=== PATIENT | female | born 1955 | race Caucasian/White ===

== ENCOUNTER 2021-03-19 10:19 | Outpatient (CLI) | payer MEDICARE, MEDICAID, SELFPAY ==
[2021-03-19 11:50] LABS: Anion Gap 10 mmol/L (8-16); Blood Urea Nitrogen 28 mg/dL (7-17); Calcium 9.3 mg/dL (8.4-10.2); Carbon Dioxide 26 mmol/L (22-30); Chloride 101 mmol/L (98-107); Estimated Glomerular Filt Rate 45; Glucose 134 mg/dL (65-110); Potassium 5.1 mmol/L (3.4-5.0); Sodium 137 mmol/L (137-145)
== END 2021-03-19 10:20 | disposition home or self-care (01) ==
LOC: ANHSURGERY 10:28
PROVIDERS: Anesthesiology; PCP Nurse Practitioner Adult Health; Visit Provider Plastic Surgery
DX: E11.9 Type 2 diabetes mellitus without complications (principal); Z01.818 Encounter for other preprocedural examination
CPT/HCPCS: 36415; 80048

== ENCOUNTER 2021-03-25 00:46 | Day surgery (SDC) | payer MEDICARE, MEDICAID, SELFPAY ==
[2021-03-19 09:17] VITALS: BMI 37.1
--- NOTE | 2021-03-19 09:48 | PC.NURSE ---
Report to the Outpatient Waiting Room, entrance under the green pavilion located off [facility], at time _1000_ on date _03/25/21__. OR Time: _1200__. - You will be asked a series of questions to screen for COVID 19 for your protection. - A mask is required within the hospital. - No visitors are allowed at this time. Preoperative COVID Testing Requirements: NONE Patients may have clear liquids (water, carbonated beverages, clear teas, apple juice) until 3 hours prior to surgery (0900 AM) with a maximum of 20 ounces. - No food from midnight until time of surgery Take the following medications with a SIP of water the morning of surgery: _LEVOTHYROXINE, METOPROLOL,_ Medications to discontinue per ANESTHESIA _ALL VITAMINS AND SUPPLEMENTS - 3 DAYS PRIOR TO SURGERY__ Date to take last dose 03/21/21 Please no make-up, nail libyan, hairspray, perfume, deodorant, or body powder the day of surgery. No jewelry (including any body piercings) or valuables the day of surgery, leave them at home. Please take a shower or bath the night before, or the morning of, surgery with an antibacterial soap. Wear comfortable, loose fitting clothing. Children are encouraged to wear pajamas. - Jewelry must be removed prior to entering the operating room. Rings and piercings that are not removed may be cut off. - The hospital will not accept responsibility for valuables. - Please leave all valuables, including medications, at home the day of surgery. If you are going home after surgery, a licensed commercial driver's license driver must drive you home. - NO public transportation without another adult. - We recommend that an adult stay with you for 24 hours following discharge. - We also recommend that you do not drive, make important decision, drink alcoholic beverages, or take any drugs that were not prescribed by your health care provider for at least 24 hours after your discharge time. Follow any additional instructions given to you from your surgeon. Telephone instructions given to ___PT and asked if any additional questions and then verbalized understanding. Patient advised to call surgeon office or pre surgery nurse liaisonODETTE [phone] if any additional questions.
[2021-03-25] VITALS (8 sets, daily range): BP systolic 86–128; BP diastolic 43–66; PULSE 60–79; RESP 12–20; TEMP 36.1; O2SAT 96–100
--- NOTE | ~2021-03-25 | XR_ITS ---
EXAMINATION: XR surgery orthopedic DATE: 03/25/2021 15:38 INDICATION: Left trapezium resection arthroplasty TECHNIQUE: 2 fluoroscopic images of the left carpus were obtained during procedure performed by Dr. Kellie Madison. Radiologist was not present for the imaging or procedure. The amount of fluoroscopy time used d uring this procedure was 0.1 minutes. COMPARISON: None. FINDINGS: Resection of the trapezium for first carpal metacarpal suspension arthroplasty. Expected small amount of gas in the soft tissues of the operative bed. Lucent tracks are present at the base of the first and second metacarpals. No fractures identified. IMPRESSION: 1. Expected appearance during first carpal metacarpal suspension arthroplasty with resection of the t rapezium. Reviewed, dictated and finalized at location A. HOIST ENGINEER IMPRESSION: 1. Expected appearance during first carpal metacarpal suspension arthroplasty w ith resection of the trapezium.
--- NOTE | 2021-03-25 07:32 | WPDHPUPDATE1 ---
History and Physical Update Update Date/Time: 03/25/21 07:32 History and Physical has been reviewed, including an updated exam of the patient. There are NO changes in the patient's condition. Risks, benefits, and alternatives have been discussed and questions answered. Patient agrees to proceed with procedure.
[2021-03-25] MEDS: LACTATED RINGERS 1,000 ML 30 ML IV CONT ×2 (11:05→16:24)
[2021-03-25 11:13] LABS: Glucose Point of Care 137 mg/dl (65-105)
[2021-03-25] MEDS: ACETAMINOPHEN 500 MG TABLET 1000 MG PO (11:18)
--- NOTE | 2021-03-25 12:10 | SUR.PREOP ---
1205-PT AND AWARE SURGEON DELAYS SELF ~1-1 1/2 HRS.
--- NOTE | 2021-03-25 12:16 | SUR.PREOP ---
1115-PT AWARE SURGEON DELAYS SELF 1- 1 1/4HRS.
--- NOTE | 2021-03-25 13:28 | WPDANESEPPF ---
Anes - Initial Pre Proc Eval Procedure: Operation Date: 03/25/21 12:00 Proposed Procedures p Left Trapezium Resection Arthroplasty with Arthrex Internal Brace - Chiki Hagen MD Date/Time: 03/25/21 13:28 Surgeon: Chiki Hagen MD Pre Op Diagnosis: Lt Basal Joint Osteoarthritis Patient Data Age: 65 Gender: F Height: 1.52 m Weight: 87.8 kg Last Vital Signs Temp 36.1 C L 03/25/21 10:19 Pulse 60 03/25/21 10:19 Resp 20 03/25/21 10:19 BP 115/49 L 03/25/21 10:19 Pulse Ox 98 03/25/21 10:19 Allergies Allergy/AdvReac Type Severity Reaction Status Date / Time clavulanic acid Allergy Unknown RESP Verified 03/18/21 09:38 DISTRESS, SWELLING, N/V meloxicam Allergy Unknown RESP Verified 03/18/21 09:38 DISTRESS, NAUSEA/VOMITING, SWELLING Home Medications Medication Instructions Recorded Confirmed Type allopurinol 100 mg PO DAILY 03/18/21 03/25/21 History amitriptyline 10 mg PO HS 03/18/21 03/25/21 History apixaban [Eliquis] 5 mg PO BID 03/18/21 03/25/21 History cyanocobalamin (vitamin B-12) 1,000 mcg SUBCUT WEEKLY 03/18/21 03/25/21 History dapagliflozin [Farxiga] 10 mg PO QAM 03/18/21 03/25/21 History denosumab [Prolia] 60 mg SUBCUT [id number] 03/18/21 03/25/21 History dicyclomine 10 mg PO QID 03/18/21 03/25/21 History fenofibrate 54 mg PO DAILY 03/18/21 03/25/21 History fluconazole 150 mg PO WEEKLY PRN 03/18/21 03/18/21 History gabapentin 600 mg PO HS 03/18/21 03/25/21 History glimepiride 2 mg PO QID PRN 03/18/21 03/25/21 History glucagon [Gvoke HypoPen 1-Pack] 1 mg SUBCUT DAILY PRN 03/18/21 03/18/21 History ketoconazole 1 applic TOPICAL BID PRN 03/18/21 03/18/21 History levothyroxine 125 mcg PO QAM 03/18/21 03/25/21 History lisinopril 10 mg PO QAM 03/18/21 03/25/21 History metformin 1,000 mg PO BID 03/18/21 03/25/21 History metoprolol succinate 25 mg PO BID 03/18/21 03/25/21 History omeprazole 20 mg PO QAM 03/18/21 03/25/21 History oxybutynin chloride 5 mg PO BID 03/18/21 03/25/21 History pravastatin 40 mg PO HS 03/18/21 03/25/21 History tramadol 50 mg PO BID 03/18/21 03/25/21 History Laboratory Tests 03/25/21 11:09 POC Capillary Glucose 137 mg/dl H mg/dl (65-105) Patient hx anesthesia problems: none Family hx anesthesia problems: none Results Review: All pre-operative results and documents have been reviewed as part of the pre-operative evaluation. [facility] Past Medical History Medical History (Updated 03/25/21 @ 13:35 by Osito Rivera MD) CAD (coronary artery disease) COPD (chronic obstructive pulmonary disease) Diabetes HTN (hypertension) Hx of myocardial infarction Hyperlipidemia Hypothyroidism Obesity JULY (obstructive sleep apnea) Osteoarthritis Surgical History Surgical History (Updated 03/25/21 @ 13:35 by Osito Rivera MD) AICD (automatic cardioverter/defibrillator) present Social History Social History Smoking packs per day: 0.5 Smoking cigarettes per day: 10.0 Years smoked: 56 Smoking pack-years: 28.00 Smoking status: Current every day smoker Tobacco type: cigarettes Second hand tobacco smoke exposure: Yes Alcohol intake: never Substance use: never Substance use type: does not use Living arrangements: alone Spiritual care concerns: No Anes - Eval Final PreProcedure Day of Procedure 03/25/21 13:28 Patient weight: obese Heart: regular rate and rhythm Lungs: clear to auscultation and normal air movement Airway: Mallampati scale class II Neurological: alert and oriented Last oral intake: >/= 8 hours ASA classification: III Emergent: no Anesthetic plan: proceed Anesthesia type and monitoring: general LMA Results Review: All pre-operative results and documents have been reviewed as part of the pre-operative evaluation. Informed Consent: The patient's anesthetic plan and its attendant risks and benefits were discussed with the patient/family/POA. Questions were solicited and answers p
[2021-03-25] MEDS: CLINDAMYCIN 900 MG/D5W 50 ML 900 MG/50 ML PIGGYBACK 50 MG IVPB (14:12)
--- NOTE | 2021-03-25 14:13 | SUR.PREOP ---
1310-UPDATED PT REGARDING DELAY-ADDITIONAL 1+ HOUR, OPTION GIVEN TO RESCHEDULE FOR ANOTHER DAY, PREFERS TO HAVE PROCEDURE TODAY.
[2021-03-25] MEDS: BUPIVACAINE HCL 0.5% PF 30 ML VIAL INFILTRATE (14:54)
[2021-03-25] MEDS: LIDO 1%/EPINEPHRINE/PF 1:200,000 30 ML VIAL XX (14:54)
[2021-03-25] MEDS: fentaNYL CITRATE INJ (*CRX) 100 MCG/2 ML VIAL 25 MCG IV PUSH ×2 (16:18→16:33)
[2021-03-25 16:46] LABS: Glucose Point of Care 91 mg/dl (65-105)
--- NOTE | 2021-03-25 18:02 | W.PM.PROC2 ---
Procedure Note - Detailed Date of Procedure 03/25/21 Pre-op Diagnosis Lt Basal Joint Osteoarthritis Post-op Diagnosis same Procedure Performed Left trapezium resection arthroplasty with Arthrex InternalBrace Surgeon Chiki Hagen MD Hvac Service Manager Rachael Description of Procedure The site of the left basal joint was marked in the holding area. The patient was taken to the operating room where she was placed supine on the operating table. A time-out was held and confirmed. She was given general endotracheal anesthesia. Extremity was prepped and draped in usual fashion. Marking was made for the incision and this area was infiltrated with 1% lidocaine with epinephrine. The extremity was exsanguinated with an Shiva wrap and the tourniquet inflated to 250 mmHg. The incision was made as marked and dissection was carried carefully through the subcutaneous tissue. We identified a cutaneous nerve and a traversing vein and were able to retract them the vessel loop and preserve them. The interspace between the EPB and the AP L was incised exposing the carpometacarpal joint. The trapezium was dissected with sharp and blunt dissection and eventually a portion of it was split with a osteotome the structure was removed with a rongeur. Images revealed complete removal of the trapezium. The anchor lock with SutureTape was placed in the base of the 2nd metacarpal. The fenestration in the 2nd metacarpal was actually performed with digital penetration of the 2nd metacarpal base with a guidewire. That whole proved to be large enough that the anchor was placed directly into it after drilling it a little deeper. The lock stated position. The 2nd anchor lock was placed at the radial base of the 1st metacarpal with no trouble. The tape was cut. The site image once again with the thumb in extension and retraction. The APB had been inadvertently partially transected in the process of resection. It still function and passively. A 3-0 Vicryl suture was placed as a evxyfl-ko-xojha reinforcement stitch. No significant capsular repair was done. The skin was closed with a running inter dermal 3-0 Monocryl. A soft bandage and thumb spica splint was applied and the patient was discharged from the operating room stable condition. The patient is being discharged home with instructions in wound care and follow-up. She has a prescription for hydrocodone 5/325 number 10 Estimated Blood Loss 3 Tourniquet Time 55 Drains No Packing No Pathology none sent Complications No immediate complications Condition stable Disposition PACU
== END 2021-03-25 18:05 | disposition home or self-care (01) ==
PROVIDERS: PCP Nurse Practitioner Adult Health; Visit Provider Plastic Surgery
PROC: (CPT 25447; principal; 2021-03-25 12:00)
DX: M18.12 Unilateral primary osteoarthritis of first carpometacarpal joint, left hand (principal); E03.9 Hypothyroidism, unspecified; Z79.01 Long term (current) use of anticoagulants; Z79.84 Long term (current) use of oral hypoglycemic drugs; I25.10 Atherosclerotic heart disease of native coronary artery without angina pectoris; J44.9 Chronic obstructive pulmonary disease, unspecified; I10 Essential (primary) hypertension; I25.2 Old myocardial infarction; E78.5 Hyperlipidemia, unspecified; G47.33 Obstructive sleep apnea (adult) (pediatric); M19.90 Unspecified osteoarthritis, unspecified site; F17.210 Nicotine dependence, cigarettes, uncomplicated; E66.9 Obesity, unspecified; Z68.37 Body mass index [BMI] 37.0-37.9, adult; Z95.810 Presence of automatic (implantable) cardiac defibrillator
CPT/HCPCS: 25447; 82948; A9270; C1713; J1100; J2370; J2405; J2704; J3010; J7120

== ENCOUNTER 2021-09-23 07:48 | Outpatient (CLI) | payer MEDICARE, MEDICAID, SELFPAY ==
--- NOTE | 2021-09-23 14:08 | WPDPFTINT ---
PFT Procedure Performed PFT Procedure Performed Spirometry with Pre/Post Bronchodilator Plethysmography (Lung Vol) Diffusing Cap (DLCO) Flow Vol Loop PFT Interpretation Lung volumes were measured with the body plethysmography method. Lung volumes are unremarkable. Spirometry showed normal expiratory flow rates and a normal FEV1 to FVC ratio of 81%. Following administration of a bronchodilator there was no significant increase in expiratory flow rates. Lung diffusion capacity is within the normal range. The flow volume loop is unremarkable. Impression: Spirometry, lung volumes, and lung diffusion capacity all within the normal range.
--- NOTE | 2021-09-23 14:10 | WPDSIXMINUTE ---
Six Minute Walk Procedure Procedure Performed Pulmonary Stress Test (6 min walk) Six Minute Walk Six Minute Walk: This 6 minute walk test was carried out with the patient breathing ambient air. The pre-walk oxyhemoglobin saturation was 98%. Patient walked over 304 m with no pauses during testing. During the walk the oxyhemoglobin saturation remained 98% to 99%. Impression: No evidence of oxyhemoglobin desaturation on this testing.
== END 2021-09-23 07:49 | disposition home or self-care (01) ==
LOC: ANHPFT 07:50
PROVIDERS: PCP Nurse Practitioner Adult Health; Visit Provider Nurse Practitioner Family
DX: R06.09 Other forms of dyspnea (principal); J44.9 Chronic obstructive pulmonary disease, unspecified
CPT/HCPCS: 94060; 94618; 94726; 94729

== ENCOUNTER 2023-03-19 12:50 | Inpatient (IN) | payer MEDICARE, MEDICAID, SELFPAY ==
[2023-03-19] VITALS (7 sets, daily range): BP systolic 114–159; BP diastolic 41–79; PULSE 81–96; RESP 18–26; TEMP 35.7–36.6; O2SAT 95–100; BMI 33.5
--- NOTE | ~2023-03-19 | CT_ITS ---
CT of the Abdomen and Pelvis: Indication: Abdominal pain Technique: 2.5 mm axial scans were obtained through the abdomen and pelvis following intravenous adm inistration of 100 cc of Omnipaque 350. Dose reduction technique was used on this scan by utilizing a utomated exposure control and iterative reconstruction technique. The dose-length product (DLP) was 8 99.85 mGy-cm. Findings: Scans through the lung bases are unremarkable. Nodular contour of the liver is compatible cirrhosis. Cholecystectomy clips are present. The spleen, pancreas, adrenals and kidneys are within normal limits. There are atherosclerotic calcifications of the aorta. . There is mild nonspecific haziness in the retroperitoneum. No bowel obstruction or bowel wall thickening. There is no evidence to suggest acute appendicitis. Images through the pelvis were performed. Urinary bladder unremarkable. No adnexal mass seen. No asci ana m. Mild L1 compression fracture present. Impression: Nonspecific mild, hazy infiltrative change in the retroperitoneum. Consider mild pancreatitis, possib ly recently passed stone. Cirrhotic liver. L1 compression fracture. Reviewed, dictated and finalized at location M. ARY CUSTOMER SERVICE CLERK Impression: Nonspecific mild, hazy infiltrative change in the retroperitoneum. Consider mil d pancreatitis, possibly recently passed stone. Cirrhotic liver. L1 compression fracture.
[2023-03-19 13:21] LABS: Basophils Percent Auto 0.3 % (0.2-1.2); Eosinophils Absolute Auto 0.1 K/mm3 (0-0.3); Eosinophils Percent Auto 0.9 % (0-4.4); Hematocrit 40.4 % (37.0-47.0); Hemoglobin 13.3 g/dL (12.0-15.0); Immature Granulocyte Absolute 0.03 K/mm3 (0.00-0.031); Immature Granulocyte Percent A 0.5 % (0-0.5); Lymphocytes Absolute Auto 0.88 K/mm3 (0.9-3.2); Lymphocytes Percent Auto 13.8 % (18.3-44.2); Mean Corpuscular HGB Conc 32.9 g/dl (32-36); Mean Corpuscular Hemoglobin 30.8 pg (26-34); Mean Corpuscular Volume 93.5 fl (80-100); Mean Platelet Volume 10.2 fl (7.4-10.4); Monocytes Absolute Auto 0.4 K/mm3 (0.1-0.6); Neutrophils Percent Auto 78.5 % (45.5-73.1); Platelet Count Result 157 k/mm3 (150-375); Red Blood Count 4.32 M/mm3 (4.2-5.4); Red Cell Distribution Width 14.3 % (11.5-14.5); White Blood Count 6.4 K/mm3 (4.5-10.0)
[2023-03-19 13:32] LABS: Alanine Aminotransferase 20 U/L (6-35); Albumin Level 4.7 g/dL (3.5-5.1); Alkaline Phosphatase 145 U/L (38-126); Anion Gap 10 mmol/L (8-16); Aspartate Amino Transferase 38 U/L (14-36); Bilirubin,Total 0.9 mg/dL (0.2-1.3); Blood Urea Nitrogen 18 mg/dL (7-17); Calcium 10.3 mg/dL (8.4-10.2); Carbon Dioxide 24 mmol/L (22-30); Chloride 103 mmol/L (98-107); Estimated CRCL calculation 41 ml/min; Estimated Glomerular Filt Rate 49; Glucose 175 mg/dL (65-110); Lipase 64 U/L (23-300); Potassium 4.4 mmol/L (3.4-5.0); Sodium 137 mmol/L (137-145)
--- NOTE | 2023-03-19 14:05 | ED.ABDPAIN ---
HPI - Abdominal Pain General Chief Complaint: Abdominal Pain <Tiana Cross PA-C - Last Filed: 03/19/23 17:49> Stated Complaint: abd pain <Tiana Cross PA-C - Last Filed: 03/19/23 17:49> Time Seen by Provider: 03/19/23 13:47 <Tiana Cross PA-C - Last Filed: 03/19/23 17:49> Source: patient <CASSANDRA Lopez Last Filed: 03/19/23 17:49> Mode of arrival: wheelchair <CASSANDRA Lopez Last Filed: 03/19/23 17:49> Limitations: no limitations <CASSANDRA Lopez Last Filed: 03/19/23 17:49> History of Present Illness HPI narrative: This is a 67 year old female that presents to the ER for left sided abdominal pain. Reports associated, nausea, vomiting and left flank/back pain. Reports a fall in the end of February. She has had low back pain since. She did see her primary provider for this and had some imaging that did not show any fractures. Denies fevers, diarrhea, dysuria or hematuria. <CASSANDRA Lopez Last Filed: 03/19/23 17:49> Related Data Home Medications: Home Medications Medication Instructions Recorded Confirmed allopurinol 100 mg tablet 100 mg PO DAILY 03/18/21 01/17/23 amitriptyline 10 mg tablet 10 mg PO HS 03/18/21 01/17/23 apixaban 5 mg tablet (Eliquis) 5 mg PO BID 03/18/21 01/17/23 cyanocobalamin (vitamin B-12) 1,000 mcg subcut WEEKLY 03/18/21 01/17/23 1,000 mcg/mL injection solution dapagliflozin propanediol 10 mg 10 mg PO QAM 03/18/21 01/17/23 tablet (Farxiga) denosumab 60 mg/mL subcutaneous 60 mg subcut [id number] 03/18/21 01/17/23 syringe (Prolia) dicyclomine 10 mg capsule 10 mg PO QID 03/18/21 01/17/23 gabapentin 300 mg capsule 600 mg PO HS 03/18/21 01/17/23 ketoconazole 2 % topical cream 1 applic topical BID PRN Rash 03/18/21 01/17/23 omeprazole 20 mg capsule,delayed 20 mg PO QAM 03/18/21 01/17/23 release oxybutynin chloride 5 mg tablet 5 mg PO BID 03/18/21 01/17/23 tramadol 50 mg tablet 50 mg PO BID 03/18/21 01/17/23 calcitriol 0.25 mcg capsule 0.25 mcg PO DAILY 11/23/22 01/17/23 cholecalciferol (vitamin D3) 1,250 1,250 mcg PO WEEKLY 11/23/22 01/17/23 mcg (50,000 unit) capsule diltiazem HCl 90 mg 90 mg PO BID 11/23/22 01/17/23 capsule,extended release 12 hr dofetilide 250 mcg capsule 250 mcg PO Q12H 11/23/22 01/17/23 etanercept 50 mg/mL (1 mL) 50 mg subcut WEEKLY 11/23/22 01/17/23 subcutaneous syringe (Enbrel) furosemide 40 mg tablet 40 mg PO QAM 11/23/22 01/17/23 linaclotide 145 mcg capsule 145 mcg PO DAILY 11/23/22 01/17/23 (Linzess) losartan 50 mg tablet 50 mg PO DAILY 11/23/22 01/17/23 magnesium oxide 500 mg PO DAILY 11/23/22 01/17/23 midodrine 5 mg tablet 5 mg PO .COMPLEX 11/23/22 01/17/23 psyllium seed (sugar) oral powder 1 tbsp PO TID 11/23/22 01/17/23 (Metamucil (sugar) oral powder) insulin syringe-needle U-100 0.5 01/17/23 01/17/23 mL 31 gauge x 5/16 (Advocate Syringes) <Tiana Cross PA-C - Last Filed: 03/19/23 17:49> Allergies/Adverse Reactions: Allergies Allergy/AdvReac Type Severity Reaction Status Date / Time sulfasalazine Allergy Mild Wheezing Verified 03/19/23 16:06 clavulanic acid Allergy Unknown RESP Verified 03/19/23 14:08 DISTRESS, SWELLING, N/V meloxicam Allergy Unknown RESP Verified 03/19/23 14:08 DISTRESS, NAUSEA/VOMITING, SWELLING <Tiana Cross PA-C - Last Filed: 03/19/23 17:49> Review of Systems Review of Systems: CONSTITUTIONAL: Denies fever GASTROINTESTINAL: Reports abdominal pain, nausea, vomiting. Denies diarrhea. GENITOURINARY: Denies dysuria or hematuria. MUSCULOSKELETAL: Reports back pain, joint pain, and myalgia. <Tiana Cross PA-C - Last Filed: 03/19/23 17:49> All systems reviewed & are unremarkable except as noted in HPI and below <Tiana Cross PA-C - Last Filed: 03/19/23 17:49> [facility] Past Medical History Medical History: Medical History (Reviewed 01/17/23 @ 14:21 by Reema Mccall C
[2023-03-19] MEDS: SODIUM CHLORIDE 0.9% IV 500 ML 999 ML IV CONT ×2 (14:17→15:19)
[2023-03-19] MEDS: ONDANSETRON INJ 4 MG/2 ML VIAL IV PUSH (14:17)
[2023-03-19] MEDS: MORPHINE SULFATE (*CRX) 4 MG/ML INJ IV PUSH (14:17)
[2023-03-19 14:37] LABS: Appearance Urine Clear (Clear); Bilirubin Urine Negative (Negative); Blood Urine Negative (Negative); Color Urine Yellow (Yellow); Glucose Urine UA 3+ mg/dL (Negative); Ketones Urine 1+ mg/dL (Negative); Leukocyte Esterase Ur Negative LEU/UL (Negative); Nitrate Urine Negative (Negative); Protein Urine Negative (Negative)
[2023-03-19 14:46] LABS: Add Urine Microscopic? NO
[2023-03-19] MEDS: HYDROcodone/acetaminophen (*CRX) 5-325 MG TABLET 1 TAB PO ×2 (16:10→20:58)
[2023-03-19] MEDS: diazePAM INJ (*CRX) 10 MG/2 ML SYRINGE 5 MG IV PUSH (16:10)
[2023-03-19 17:18] LABS: Glucose Point of Care 96 mg/dl (65-105)
--- NOTE | 2023-03-19 17:55 | PC.NURSE ---
This patient, Sarah Starr, was admitted to [facility] Surg Room 300-01. Patient/family oriented to hospital policies and general routines including ID bracelet, bed and alarms, visiting hours, pain management, procedures, bathroom and other care routines, personal items, smoking policy, room service/diet, and visiting hours. Information on how to activate the Rapid Response Team has been discussed. Patient/Family are encouraged to report perceived risks to care and to ask questions if they do not understand what they are told or what they should do.
[2023-03-19 21:06] LABS: Glucose Point of Care 98 mg/dl (65-105)
--- NOTE | 2023-03-19 21:44 | PM.IMHP ---
H&P: HPI History of Present Illness Date/Time: 03/19/23 18:30 Chief Complaint: Abdominal and back pain. Narrative: This is a 67-year-old female with multiple medical problems including cirrhosis, gastroesophageal reflux disease, Nelson esophagus, coronary artery disease, paroxysmal atrial fibrillation on chronic anticoagulation, non alcoholic steatohepatitis, hypertension, hyperlipidemia, type 2 diabetes mellitus, hypothyroidism, chronic kidney disease, and arthritis who presented to the emergency department via private vehicle from home for evaluation of abdominal and back pain. The patient provides the following history. She had a fall about 1 month ago where she landed on her left side and buttock. She had imaging done at an outside facility and was told that everything looked okay. She had been doing okay until about the last week when she developed pain throughout the left side of the abdomen and flank wrapping around through to the back. She has a hard time describing the pain but a majority of the time it is sharp and stabbing in nature. She has been managing okay at home but the last couple of days the pain has been severe. It is worse with eating, movement, palpation. She has not given any significant alleviating factors. She endorses chills but has not had a fever to her knowledge. Appetitie has been poor with ongoing nausea and she had several episodes of ?brown? emesis today. She denies sinus congestion, sore throat, neck ache, chest pain, pleuritic pain, palpitations, sensations of racing heart, diarrhea, dysuria, hematuria, melena, hematochezia, lower extremity weakness, paresthesias, saddle anesthesia, urine retention, and bowel incontinence. In the ED: She was afebrile on arrival with stable blood pressures. CBC was really unremarkable. Electrolytes were normal though calcium was minimally elevated. BUN and creatinine were 181.10 respectively which is close to her baseline. AST was 38, ALT 145, but her bilirubin and ALT were normal. Lipase was 64. Urine had a high specific gravity with 3+ glucose and 1+ ketones. CT of the abdomen and pelvis showed a cirrhotic liver, mild L1 compression fracture, and nonspecific mild, hazy infiltrative changes in the retroperitoneum which could be mild pancreatitis or possibly senior outside sales representative of a recently passed stone. She received IV fluids, morphine, diazepam, and ondansetron without much improvement. She was not able to ambulate unassisted and she is being admitted in this setting for further monitoring and workup. Review of Systems Review of Systems: Twelve systems were reviewed and are negative except for as per HPI. [facility] Past Medical History Medical History (Updated 03/19/23 @ 22:14 by Florence Oconnor PA-C) Arthritis Nelson esophagus Chronic anticoagulation Chronic obstructive pulmonary disease Coronary artery disease Gastroesophageal reflux disease History of cardiac pacemaker Hyperlipidemia Hypertension Hypothyroidism Nonalcoholic steatohepatitis (LINK) Obesity Obstructive sleep apnea on CPAP Osteoarthritis Paroxysmal atrial fibrillation Type 2 diabetes mellitus Surgical History Surgical History (Updated 03/19/23 @ 22:04 by Florence Oconnor PA-C) History of arthroscopy of left knee History of cardiac defibrillator placement History of right hip replacement Family History Family History Father Heart disease Diabetes mellitus Pancreatitis Mother Heart disease Pulmonary fibrosis Sibling Heart disease Kidney disease Social History Social History (Updated 03/19/23 @ 22:04 by Florence Oconnor PA-C) Social History: Surrogate medical decision maker: Erlinda Paula, sister. Code status: Smoking packs per day: 0.5 Smoking cigarettes per day: 10.0 Years smoked: 56 Smoking pack-years: 28.00 Smoking status: Current every day smoker Tobacco type: cigarettes Second hand tobacco smoke
[2023-03-19] MEDS: SODIUM CHLORIDE 0.9% IV 1,000 ML 100 ML IV CONT (23:36)
[2023-03-19] MEDS: GABAPENTIN 300 MG CAPSULE PO (23:36)
[2023-03-19] MEDS: allopurinoL 100 MG TABLET PO (23:36)
[2023-03-19] MEDS: MORPHINE SULFATE (*CRX) 2 MG/ML INJ IV PUSH (23:45)
[2023-03-20] MEDS: HYDROcodone/acetaminophen (*CRX) 5-325 MG TABLET 1 TAB PO ×4 (01:12→18:32)
[2023-03-20] MEDS: LEVOTHYROXINE SODIUM 100 MCG TABLET PO (01:12)
[2023-03-20 03:53] LABS: Glucose Point of Care 77 mg/dl (65-105)
[2023-03-20] MEDS: MORPHINE SULFATE (*CRX) 2 MG/ML INJ IV PUSH ×4 (05:18→21:21)
[2023-03-20 06:00] VITALS: BP 133/106; PULSE 80; RESP 19; TEMP 36.5; O2SAT 92
[2023-03-20 06:52] LABS: Hematocrit 35.4 % (37.0-47.0); Hemoglobin 11.4 g/dL (12.0-15.0); Mean Corpuscular HGB Conc 32.2 g/dl (32-36); Mean Corpuscular Volume 93.2 fl (80-100); Mean Platelet Volume 10.4 fl (7.4-10.4); Platelet Count Result 126 k/mm3 (150-375); Red Cell Distribution Width 14.2 % (11.5-14.5); White Blood Count 5.2 K/mm3 (4.5-10.0)
[2023-03-20 07:08] LABS: Alanine Aminotransferase 16 U/L (6-35); Albumin Level 3.8 g/dL (3.5-5.1); Alkaline Phosphatase 114 U/L (38-126); Anion Gap 9 mmol/L (8-16); Aspartate Amino Transferase 33 U/L (14-36); Bilirubin,Total 0.7 mg/dL (0.2-1.3); Blood Urea Nitrogen 11 mg/dL (7-17); Calcium 9.1 mg/dL (8.4-10.2); Carbon Dioxide 23 mmol/L (22-30); Chloride 106 mmol/L (98-107); Estimated CRCL calculation 44 ml/min; Estimated Glomerular Filt Rate 55; Glucose 93 mg/dL (65-110); Lipase 47 U/L (23-300); Magnesium 1.6 mg/dL (1.6-2.3); Potassium 3.4 mmol/L (3.4-5.0); Sodium 138 mmol/L (137-145)
[2023-03-20 07:31] LABS: Glucose Point of Care 105 mg/dl (65-105)
[2023-03-20 07:58] LABS: Thyroid Stimulating Hormone Reflex 0.276 uIU/mL (0.465-4.68)
[2023-03-20] MEDS: dilTIAZem HCL CD 180 MG CAP.24HR PO (08:56)
[2023-03-20] MEDS: DICYCLOMINE HCL 10 MG CAPSULE PO ×2 (08:56→17:18)
[2023-03-20] MEDS: FENOFIBRATE,MICRONIZED 48 MG TABLET PO (08:56)
[2023-03-20] MEDS: oxyBUTYnin CHLORIDE 5 MG TABLET PO ×2 (08:57→20:13)
[2023-03-20] MEDS: LOSARTAN POTASSIUM 50 MG TABLET PO (08:57)
[2023-03-20] MEDS: MIDODRINE HCL 2.5 MG TABLET 5 MG PO ×2 (08:57→17:18)
[2023-03-20] MEDS: APIXABAN 5 MG TABLET PO ×2 (08:57→20:13)
[2023-03-20] MEDS: PSYLLIUM POWDER PACKET 1 PACKET PO ×3 (08:57→17:18)
[2023-03-20] MEDS: PANTOPRAZOLE 40 MG TABLET PO (08:57)
[2023-03-20 09:58] LABS: Free T4 Free Thyroxine Reflex 1.96 ng/dL (0.78-2.19)
[2023-03-20] MEDS: LIOTHYRONINE SODIUM 5 MCG TABLET PO ×2 (10:07→20:13)
[2023-03-20 11:14] LABS: Glucose Point of Care 141 mg/dl (65-105)
[2023-03-20 12:06] LABS: Total Triiodothyronine (T3) 1.32 NG/ML (0.97-1.69)
--- NOTE | 2023-03-20 13:46 | PM.IMPN ---
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 Status: Acute (2) Paroxysmal atrial fibrillation: Code(s): I48.0 - Paroxysmal atrial fibrillation Status: Acute (3) Nonalcoholic steatohepatitis (LINK): Code(s): K75.81 - Nonalcoholic steatohepatitis (LINK) Status: Acute (4) Compression fracture of L1 vertebra: Qualifiers: Encounter type: initial encounter Qualified Code(s): S32.010A - Wedge compression fracture of first lumbar vertebra, initial encounter for closed fracture Code(s): S32.010A - Wedge compression fracture of first lumbar vertebra, initial encounter for closed fracture Status: Acute Time Spent With Patient Time: This is a 67-year-old female who comes from home with past medical history non alcoholic steatohepatitis, cirrhosis, GERD, Nelson's esophagus, coronary artery disease, paroxysmal atrial fibrillation on chronic anticoagulation, hypertension, hyperlipidemia, type 2 diabetes mellitus [id number]-[id number], hypothyroidism, chronic kidney disease, arthritis. The patient fell approximately 1 month prior to admission and landed on her left side and buttock. Imaging at an outside facility and was told everything was okay. She was doing well until about a week prior to this admission when she presented [facility] with worsening left flank, abdominal pain and lower back pain. Sharp in nature. Worse with eating and movement and palpation. Associated with some nausea and brown emesis. On admission the patient's AST was 38, alkaline phosphatase 145 and have now resolved. Lipase and total bilirubin were normal however. CT abdomen and pelvis with contrast demonstrates nonspecific mild hazy infiltrates to the retroperitoneum which could demonstrate mild pancreatitis or a recently passed stone. It is very possible she had a recent event which is now resolving. Continue Protonix. If she worsens a GI consultation would be appropriate. There may be a concomitant issue. She has point tenderness to the L-spine and fell a month ago. She is unsure if the stomach pain or the back pain is worse but both are sharp in nature. She has relief with Pierce. Continue p.r.n. for severe pain as well. With this apparently new L1 compression fracture a neurosurgery consult has been placed for further assistance. FEN: Saline lock IV. Clear liquid diet, advanced as tolerated. GI prophylaxis: Protonix p.o. q.day. DVT prophylaxis: On Eliquis for atrial fibrillation Lines: Peripheral IV Code Status: Full code Dispo: Bed rest for now pending neurosurgical consultation, than PTOT therapy. Stable. Subjective Date/time seen: 03/20/23 13:46 Interval history: No acute overnight events. Patient has recently received Pierce and reports the pain is 4/10. She again reports that is at the stomach area and radiates in a sharp manner to the back. And worse at the lower back Review of Systems Review of Systems: All systems reviewed & are unremarkable except as noted in HPI and below (Subjective) Exam Narrative: Point tenderness to the L-spine. BILLY test positive bilaterally worse on the right. Const: General: comfortable and no acute distress Other: A&O x3 Eyes: Pupils: Equal, round and reactive pupils present Neck: Neck: supple Resp: Effort & Inspection: normal respiratory effort Auscultation: clear to auscultation bilaterally Cardio: Rate: regular rate Rhythm: regular rhythm GI: GI Palp: Yes Soft to palpation and Yes Tenderness to palpation present (GI) (Mild tenderness to palpation diffusely) : Bimanual exam- vagina & uterus: bladder normal to palpation Neuro: Speech: normal speech Motor exam (neuro): 5/5 motor strength present throughout Sensory Exam: normal sensation Extrem: General: no edema Objective Data Vital Signs Vital Signs: Vital Signs - 24 hr
[2023-03-20 13:47] VITALS: BP 119/57; PULSE 77; RESP 20; TEMP 36.3; O2SAT 96
--- NOTE | 2023-03-20 14:24 | WPDNEUROSGCN ---
Assessment and Plan Assessment and plan (1) Compression fracture of L1 vertebra: Qualifiers: Encounter type: initial encounter Qualified Code(s): S32.010A - Wedge compression fracture of first lumbar vertebra, initial encounter for closed fracture Code(s): S32.010A - Wedge compression fracture of first lumbar vertebra, initial encounter for closed fracture Status: Acute (2) Osteoporosis: Qualifiers: Osteoporosis type: age-related Presence of current pathological fracture: without current pathological fracture Qualified Code(s): M81.0 - Age-related osteoporosis without current pathological fracture Code(s): M81.0 - Age-related osteoporosis without current pathological fracture Status: Acute Assessment and Plan: The patient is a pleasant 67-year-old female who presented to [facility] for low back pain in addition to abdominal complaints and was found to have a L1 compression fracture of the inferior endplate. She has history of a recent fall approximately 1 month ago and hx osteoporosis but Nov 2022 Dexa study showed osteopenia with lowest T score of -2.0. The patient is neurologically intact. Will plan to treat her in a [id number] LSO brace, patient is to wear this when sitting upright and ambulating. She can remove the brace when lying reclined or sleeping and also briefly remove for showers. The brace is currently in the patient's room Will plan to treat her in this brace for approximately 3 months with a office follow-up visit in 6 weeks with repeat lumbar x-rays. 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 Consult date: 03/20/23 Reason for consult: L1 compression fracture HPI: Sarah Starr is a 67 year old female with PMHx for non alcoholic steatohepatitis, cirrhosis, GERD, Nelson's esophagus, CAD (has MRI compatible AICD), Afib on eliquis, HTN, HLD, DM2, hypothyroidism, CKD, and Osteoporosis hx, who presented to the ER yesterday due to complaints of severe low back pain, abdominal pain, and nausea and vomiting and was found to have an L1 compression fracture on the CT abdomen study. She was also found to have abnormalities that may represent mild pancreatitis or a recently passed stone. The patient gives history for a recent fall approximately 1 month ago, she states she was in her home and her legs slipped out from under her landing on her left side. She was able to get up on her own and did not have any low back pain until 2 weeks later. She states her pain is in her low back, her right lower quadrant region, and some pain in her left hip and groin region. She denies any radiating leg symptoms such as pain, sensory changes, no focal weakness, and no bladder or bowel dysfunction. She's not had any prior surgical spine history. Patient states she was recently taken off her Prolia in February of this year as her last Dexa study in Nov 2022 showed osteopenia with lowest T score of -2.1. Review of Systems Review of Systems: All systems reviewed & are unremarkable except as noted in HPI and below PMFSH Past Medical History Medical History (Updated 03/19/23 @ 22:14 by Florence Oconnor PA-C) Arthritis Nelson esophagus Chronic anticoagulation Chronic obstructive pulmonary disease Coronary artery disease Gastroesophageal reflux disease History of cardiac pacemaker Hyperlipidemia Hypertension Hypothyroidism Nonalcoholic steatohepatitis (LINK) Obesity Obstructive sleep apnea on CPAP Osteoarthritis Paroxysmal atrial fibrillation Type 2 diabetes mellitus Surgical History Surgical History (Updated 03/19/23 @ 22:04 by Florence Oconnor PA-C) History of arthroscopy of left knee History of cardiac defibrillator placement History of right hip replacement Family History Family History (Reviewed 03/19/23 @ 22:01 by Florence Sanon
[2023-03-20 16:23] LABS: Glucose Point of Care 110 mg/dl (65-105)
[2023-03-20] MEDS: allopurinoL 100 MG TABLET PO (20:13)
[2023-03-20] MEDS: PRAVASTATIN SODIUM 20 MG TABLET 40 MG PO (20:14)
[2023-03-20] MEDS: GABAPENTIN 300 MG CAPSULE PO (20:14)
[2023-03-20 21:16] LABS: Glucose Point of Care 150 mg/dl (65-105)
[2023-03-20 21:19] VITALS: BP 110/46; PULSE 74; RESP 19; TEMP 36.3; O2SAT 93
[2023-03-20] MEDS: MELATONIN 5 MG TABLET PO (21:30)
[2023-03-21] MEDS: HYDROcodone/acetaminophen (*CRX) 5-325 MG TABLET 1 TAB PO ×4 (01:14→13:22)
[2023-03-21] MEDS: LEVOTHYROXINE SODIUM 100 MCG TABLET PO (01:14)
[2023-03-21 06:00] VITALS: BP 115/66; PULSE 69; RESP 19; TEMP 36.6; O2SAT 92
[2023-03-21 07:58] LABS: Glucose Point of Care 104 mg/dl (65-105)
[2023-03-21 09:02] VITALS: BP 130/70; PULSE 76; RESP 14; O2SAT 97
[2023-03-21] MEDS: oxyBUTYnin CHLORIDE 5 MG TABLET PO ×2 (09:05→20:02)
[2023-03-21] MEDS: PANTOPRAZOLE 40 MG TABLET PO (09:06)
[2023-03-21] MEDS: APIXABAN 5 MG TABLET PO ×2 (09:06→20:01)
[2023-03-21] MEDS: MIDODRINE HCL 2.5 MG TABLET 5 MG PO ×2 (09:06→17:26)
[2023-03-21] MEDS: FENOFIBRATE,MICRONIZED 48 MG TABLET PO (09:06)
[2023-03-21] MEDS: LIOTHYRONINE SODIUM 5 MCG TABLET PO ×2 (09:06→20:01)
[2023-03-21] MEDS: LOSARTAN POTASSIUM 50 MG TABLET PO (09:07)
[2023-03-21] MEDS: DICYCLOMINE HCL 10 MG CAPSULE PO (09:07)
[2023-03-21] MEDS: dilTIAZem HCL CD 180 MG CAP.24HR PO (09:07)
[2023-03-21] MEDS: PSYLLIUM POWDER PACKET 1 PACKET PO ×3 (09:11→17:32)
[2023-03-21 10:00] LABS: Hematocrit 36.9 % (37.0-47.0); Hemoglobin 12.1 g/dL (12.0-15.0); Mean Corpuscular HGB Conc 32.8 g/dl (32-36); Mean Corpuscular Hemoglobin 30.2 pg (26-34); Mean Platelet Volume 10.4 fl (7.4-10.4); Platelet Count Result 145 k/mm3 (150-375); Red Blood Count 4.01 M/mm3 (4.2-5.4); Red Cell Distribution Width 14.2 % (11.5-14.5); White Blood Count 5.4 K/mm3 (4.5-10.0)
[2023-03-21 10:12] LABS: Anion Gap 8 mmol/L (8-16); Blood Urea Nitrogen 9 mg/dL (7-17); Calcium 9.5 mg/dL (8.4-10.2); Carbon Dioxide 22 mmol/L (22-30); Chloride 106 mmol/L (98-107); Estimated CRCL calculation 48 ml/min; Estimated Glomerular Filt Rate > 60; Glucose 179 mg/dL (65-110); Potassium 3.9 mmol/L (3.4-5.0); Sodium 136 mmol/L (137-145)
[2023-03-21 11:15] LABS: Glucose Point of Care 183 mg/dl (65-105)
[2023-03-21 14:00] VITALS: BP 99/43; PULSE 75; RESP 15; TEMP 36.6; O2SAT 96
--- NOTE | 2023-03-21 15:07 | PM.IMPN ---
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 Status: Acute (2) Paroxysmal atrial fibrillation: Code(s): I48.0 - Paroxysmal atrial fibrillation Status: Acute (3) Nonalcoholic steatohepatitis (LINK): Code(s): K75.81 - Nonalcoholic steatohepatitis (LINK) Status: Acute (4) Compression fracture of L1 vertebra: Qualifiers: Encounter type: initial encounter Qualified Code(s): S32.010A - Wedge compression fracture of first lumbar vertebra, initial encounter for closed fracture Code(s): S32.010A - Wedge compression fracture of first lumbar vertebra, initial encounter for closed fracture Status: Acute Time Spent With Patient Time: This is a 67-year-old female who comes from home with past medical history non alcoholic steatohepatitis, cirrhosis, GERD, Nelson's esophagus, coronary artery disease, paroxysmal atrial fibrillation on chronic anticoagulation, hypertension, hyperlipidemia, type 2 diabetes mellitus rio-zhavqhl-lkxphcezs, hypothyroidism, chronic kidney disease, arthritis. The patient fell approximately 1 month prior to admission and landed on her left side and buttock. Imaging at an outside facility and was told everything was okay. She was doing well until about a week prior to this admission when she presented [facility] with worsening left flank, abdominal pain and lower back pain. Sharp in nature. Worse with eating and movement and palpation. Associated with some nausea and brown emesis. On admission the patient's AST was 38, alkaline phosphatase 145 and have now resolved. Lipase and total bilirubin were normal however. CT abdomen and pelvis with contrast demonstrates nonspecific mild hazy infiltrates to the retroperitoneum which could demonstrate mild pancreatitis or a recently passed stone. It is very possible she had a recent event which is now resolving. Continue Protonix. If she worsens a GI consultation would be appropriate. There may be a concomitant issue. She has point tenderness to the L-spine and fell a month ago. She is unsure if the stomach pain or the back pain is worse but both are sharp in nature. She has relief with Antelope. Continue p.r.n. for severe pain as well. With this apparently new L1 compression fracture a neurosurgery consult has been placed for further assistance. 03/21/2023 update The patient again reiterates the pain is worse at the lower back and radiates the left side of her abdomen. This is more indicative of radiculopathy probably due to the L1 compression fracture. Neurosurgery recommendations appreciated and she is wearing the LSO brace for approximately 3 months. Up in office with a repeat lumbar x-rays in 6 weeks. Follow with tailman eventually. Physical and Occupational therapy working with her. Discharge to SNF for acute rehab is a consideration. To help control her pain and muscle spasm Flexeril 5 mg p.o. b.i.d. has been scheduled. Discontinue Antelope. Considering she has morphine 2 mg q.4 hours IV p.r.n., Flexeril, melatonin, and oxybutynin I have placed her on continuous pulse oximetry for now. She can also use acetaminophen 650 mg p.o. q.4 hours p.r.n. for mild pain. FEN: Saline lock IV. Diabetic consistent carbohydrate diet GI prophylaxis: Protonix p.o. q.day. DVT prophylaxis: On Eliquis for atrial fibrillation Lines: Peripheral IV Code Status: Full code Dispo: Ambulate with assistance. PTOT. Discharge planning pending. Subjective Date/time seen: 03/21/23 15:07 Interval history: No acute overnight events. Patient still complains of severe pain at the lower back which radiates in a sharp nature to the left side of the belly when she is moving. There is some spasming at the lower back as well. She denies any fever chills nausea vomiting diarrhea shortness of breath or chest pain. Review of Systems Review of Systems
[2023-03-21 16:21] LABS: Glucose Point of Care 115 mg/dl (65-105)
[2023-03-21] MEDS: MORPHINE SULFATE (*CRX) 2 MG/ML INJ IV PUSH (17:27)
[2023-03-21 20:00] VITALS: PULSE 71
[2023-03-21] MEDS: PRAVASTATIN SODIUM 20 MG TABLET 40 MG PO (20:00)
[2023-03-21] MEDS: CYCLOBENZAPRINE HCL 5 MG TABLET PO (20:01)
[2023-03-21] MEDS: allopurinoL 100 MG TABLET PO (20:01)
[2023-03-21] MEDS: GABAPENTIN 300 MG CAPSULE PO (20:02)
[2023-03-21] MEDS: INSULIN ASPART (*BKC) 100 UNITS/ML SUB-Q (20:09)
[2023-03-21 20:56] LABS: Glucose Point of Care 143 mg/dl (65-105)
[2023-03-21 21:14] VITALS: BP 87/66; PULSE 70; RESP 16; TEMP 36.1; O2SAT 97
[2023-03-22] VITALS: PULSE 70
[2023-03-22] MEDS: CYCLOBENZAPRINE HCL 10 MG TABLET PO (02:16)
[2023-03-22] MEDS: LEVOTHYROXINE SODIUM 100 MCG TABLET PO (02:16)
[2023-03-22 04:00] VITALS: PULSE 76
[2023-03-22 06:00] VITALS: BP 106/46; PULSE 70; RESP 20; TEMP 36.6; O2SAT 97
[2023-03-22 07:21] LABS: Glucose Point of Care 100 mg/dl (65-105)
[2023-03-22 08:00] VITALS: PULSE 82
[2023-03-22 08:21] LABS: Hematocrit 39.8 % (37.0-47.0); Hemoglobin 12.8 g/dL (12.0-15.0); Mean Corpuscular HGB Conc 32.2 g/dl (32-36); Mean Corpuscular Volume 93.4 fl (80-100); Mean Platelet Volume 10.4 fl (7.4-10.4); Platelet Count Result 157 k/mm3 (150-375); Red Blood Count 4.26 M/mm3 (4.2-5.4); Red Cell Distribution Width 14.3 % (11.5-14.5); White Blood Count 5.8 K/mm3 (4.5-10.0)
[2023-03-22 08:28] LABS: Anion Gap 6 mmol/L (8-16); Blood Urea Nitrogen 10 mg/dL (7-17); Carbon Dioxide 25 mmol/L (22-30); Chloride 105 mmol/L (98-107); Estimated CRCL calculation 48 ml/min; Estimated Glomerular Filt Rate > 60; Glucose 130 mg/dL (65-110); Sodium 136 mmol/L (137-145)
[2023-03-22 08:40] VITALS: PULSE 81; RESP 18; O2SAT 95
[2023-03-22] MEDS: CYCLOBENZAPRINE HCL 5 MG TABLET PO (08:40)
[2023-03-22] MEDS: FENOFIBRATE,MICRONIZED 48 MG TABLET PO (08:41)
[2023-03-22] MEDS: LIOTHYRONINE SODIUM 5 MCG TABLET PO (08:41)
[2023-03-22] MEDS: APIXABAN 5 MG TABLET PO (08:41)
[2023-03-22] MEDS: dilTIAZem HCL CD 180 MG CAP.24HR PO (08:41)
[2023-03-22] MEDS: PANTOPRAZOLE 40 MG TABLET PO (08:41)
[2023-03-22] MEDS: LOSARTAN POTASSIUM 50 MG TABLET PO (08:41)
[2023-03-22] MEDS: MIDODRINE HCL 2.5 MG TABLET 5 MG PO (08:41)
[2023-03-22] MEDS: PSYLLIUM POWDER PACKET 1 PACKET PO ×2 (08:42→12:18)
[2023-03-22] MEDS: oxyBUTYnin CHLORIDE 5 MG TABLET PO (08:42)
[2023-03-22] MEDS: ACETAMINOPHEN 325 MG TABLET 650 MG PO (08:47)
[2023-03-22 11:26] LABS: Glucose Point of Care 180 mg/dl (65-105)
[2023-03-22 14:00] VITALS: BP 112/43; PULSE 70; RESP 18; TEMP 36.6; O2SAT 92
--- NOTE | 2023-03-22 15:58 | PM.DS ---
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 Status: Acute (2) Paroxysmal atrial fibrillation: Code(s): I48.0 - Paroxysmal atrial fibrillation Status: Acute (3) Nonalcoholic steatohepatitis (LINK): Code(s): K75.81 - Nonalcoholic steatohepatitis (LINK) Status: Acute (4) Compression fracture of L1 vertebra: Qualifiers: Encounter type: initial encounter Qualified Code(s): S32.010A - Wedge compression fracture of first lumbar vertebra, initial encounter for closed fracture Code(s): S32.010A - Wedge compression fracture of first lumbar vertebra, initial encounter for closed fracture Status: Acute DS: Summary Hospital Course Reason for hospitalization: 67yo female with cirrhosis, CAD, pAFib on chronic anticoagulation, HTn, DM and CKD here for abdominal and back pain.?Please see H&P for details. Hospital Course: The patient presented to emergency department from home for evaluation of abdominal and back pain. She had a fall about a month ago but did started having problems with pain up until maybe 1 week prior to admission. Lipase was normal and her AST and alkaline phosphatase were barely abnormal. CT scan showed nonspecific, hazy infiltrative changes in the retroperitoneum which could reflect mild pancreatitis or recently passed stone. She is s/p cholecystectomy. CT scan also showing cirrhosis and mild L1 compression fracture. Neurosurgery was consulted and LSO brace was ordered. She worked with PT/OT. medicatins adjusted with good response to her pain. She was scheduled to go to acute rehab facility but felt strong enough for discharge home, She refused home health. She did well with therapy today. She overall did well and was able to be discharged home on 03/22/23 Status at Discharge Cognitive/behavioral status at discharge: stable Time Spent with Patient Time attestation: Total time spent providing and/or coordinating discharge services: 35 mintues Time spent: Greater than 30 minutes Exam Narrative: AF 97.8 112/43 70 18 92%ra Gen - NARD Chest - CTA bilaterally, nml RR CV - RRR S1/S2 Abd - Soft, NT/ND, Positive BS Ext - trace pedal edema. Negative Homans Psych - Nml mood and affect Skin - Warm and dry DS: Data Data Completed and Pending Labs on day of discharge: Labs from last 24 hours 03/22/23 03/22/23 03/22/23 11:16 07:59 07:09 WBC 5.8 RBC 4.26 Hgb 12.8 Hct 39.8 MCV 93.4 MCH 30.0 MCHC 32.2 RDW 14.3 Plt Count 157 MPV 10.4 Sodium 136 L Potassium 4.0 Chloride 105 Carbon Dioxide 25 Anion Gap 6 L BUN 10 Creatinine 0.90 Estim Creat Clear Calc 48 Estimated GFR > 60 Glucose 130 H POC Capillary Glucose 180 H 100 Calcium 10.0 03/21/23 03/21/23 20:03 16:05 WBC RBC Hgb Hct MCV MCH MCHC RDW Plt Count MPV Sodium Potassium Chloride Carbon Dioxide Anion Gap BUN Creatinine Estim Creat Clear Calc Estimated GFR Glucose POC Capillary Glucose 143 H 115 H Calcium Discharge Plan Discharge Attending physician on discharge: Zachary Suarez Consulting providers: Tiana Cross; Karyn Rosales Discharging Clinician: Zachary Suarez Anticipated Discharge Date/Time: 03/22/23 16:10 Patient Disposition: Home, Self-Care Activity: other - see discharge instructions Diet: heart healthy and diabetic Discharge Instructions: You should wear your lumbar brace when sitting upright and walking, okay to remove when lying reclined or flat, and can remove for showers. Please check glucose before meals and before bed. Record and bring into your doctor for review. Check blood pressure 1 to 2 times a day. Record
[2023-03-22 16:41] LABS: Glucose Point of Care 127 mg/dl (65-105)
--- NOTE | 2023-03-22 17:30 | PC.NURSE ---
03/22/23 1700 Explained to patient that discharge orders are in and asked if she had a ride that she can call to come and get her home. Patient stated she drove herself to the ER and has no friends or family that she can call to get her home and get her prescriptions. Stated her friends don't drive after dark. Called provider if patient is okay to drive herself home. Dr. Suarez stated that getting her a ride is of preference. I informed patient of the concerns and offered a cab voucher to get her home. Patient declined offer. Patient stated she understood the education provided.
== END 2023-03-22 17:25 | disposition home or self-care (01) | DRG 552 ==
LOC: ANHED 14:48 → ANH3MEDSUR 17:41
PROVIDERS: Emergency Medicine; General Practice; Physician Assistant; Admitting Provider Internal Medicine; Emergency Provider Physician Assistant; PCP Family Medicine; Visit Provider Internal Medicine
DX: S32.010A Wedge compression fracture of first lumbar vertebra, initial encounter for closed fracture (principal); I48.0 Paroxysmal atrial fibrillation; K75.81 Nonalcoholic steatohepatitis (NASH); I25.10 Atherosclerotic heart disease of native coronary artery without angina pectoris; W19.XXXA Unspecified fall, initial encounter; K74.60 Unspecified cirrhosis of liver; E11.22 Type 2 diabetes mellitus with diabetic chronic kidney disease; I12.9 Hypertensive chronic kidney disease with stage 1 through stage 4 chronic kidney disease, or unspecified chronic kidney disease; R10.9 Unspecified abdominal pain; N18.9 Chronic kidney disease, unspecified; J44.9 Chronic obstructive pulmonary disease, unspecified; E66.9 Obesity, unspecified; M19.90 Unspecified osteoarthritis, unspecified site; E78.5 Hyperlipidemia, unspecified; K21.9 Gastro-esophageal reflux disease without esophagitis; E03.9 Hypothyroidism, unspecified; E86.0 Dehydration; G47.33 Obstructive sleep apnea (adult) (pediatric); F17.210 Nicotine dependence, cigarettes, uncomplicated; Z96.641 Presence of right artificial hip joint; Z79.01 Long term (current) use of anticoagulants; Z90.49 Acquired absence of other specified parts of digestive tract; I25.2 Old myocardial infarction; Z68.33 Body mass index [BMI] 33.0-33.9, adult; Z95.810 Presence of automatic (implantable) cardiac defibrillator
CPT/HCPCS: 36415; 74177; 80048; 80053; 81003; 82948; 83690; 83735; 84439; 84443; 84480; 85025; 85027; 86140; 96361; 96374; 96375; 96376; 97116; 97161; 97166; 97530; 97535; 99285; A9270; G0378; J1815; J2270; J2405; J3360; J7030; J7040; Q9967

== ENCOUNTER 2023-05-01 07:02 | Outpatient (CLI) | payer MEDICARE, MEDICAID, SELFPAY ==
--- NOTE | ~2023-05-01 | XR_ITS ---
XR lumbar spine 2-3V 05/01/2023 07:29 Indication: Back pain Procedure: 2 views lumbar spine Comparison: 03/14/2010 Findings: There is a burst fracture of L1, age indeterminate, although new compared with prior study. There is disc narrowing at all lumbar levels. There is facet hypertrophy of the mid and lower lumbar spine. No evidence for spondylolisthesis. There are cholecystectomy clips. Bowel pattern nonobstruct deidra. Impression: 1: New age-indeterminate burst fracture of L1. 2: Severe lumbar spondylosis. Reviewed, dictated and finalized at location B. Impression: 1: New age-indeterminate burst fracture of L1. 2: Severe lumbar spondylosis.
== END 2023-05-01 07:03 | disposition home or self-care (01) ==
LOC: ANHIMG 07:07
PROVIDERS: PCP Family Medicine; Visit Provider Physician Assistant
DX: S32.010A Wedge compression fracture of first lumbar vertebra, initial encounter for closed fracture (principal); X58.XXXA Exposure to other specified factors, initial encounter; M47.896 Other spondylosis, lumbar region
CPT/HCPCS: 72100

== ENCOUNTER 2023-05-17 08:54 | Outpatient (CLI) | payer MEDICARE, MEDICAID, SELFPAY ==
--- NOTE | ~2023-05-17 | CT_ITS ---
EXAMINATION: CT lumbar spine wo con DATE: 05/17/2023 09:28 INDICATION: Lumbar radiography. TECHNIQUE: Computed tomography (CT) of the lumbar spine was performed without intravenous contrast. A utomated exposure control and iterative reconstruction technique were employed. The dose-length produ ct was 987.30 mGy-cm. COMPARISON: Lumbar spine radiographs 05/01/2023, CT abdomen and pelvis 03/19/2023 FINDINGS: There is 7 degrees dextrocurvature of lumbar spine. There is a subacute burst fracture of L 1 with 4/5 loss of height, retropulsion of bone 4 mm into central spinal canal, and mild central sharmila l stenosis. There is severely decreased disc height at L3-L4 and L4-L5 and moderately decreased disc height at L5-S1. The following disc levels are specifically discussed: L1-L2: The disc is bulging. There is mild bilateral facet joint osteoarthritis. There is mild bilater al neural foraminal stenosis. There is mild central canal stenosis. L2-L3: The disc is bulging. There is moderate bilateral facet joint osteoarthritis. There is mild norma ateral neural foraminal stenosis. There is mild central canal stenosis. L3-L4: The disc is bulging. There is moderate bilateral facet joint osteoarthritis. There is mild norma ateral neural foraminal stenosis. There is mild central canal stenosis. L4-L5: The disc is bulging. There is severe bilateral facet joint osteoarthritis. There is moderate b ilateral neural foraminal stenosis. There is mild central canal stenosis. L5-S1: The disc is bulging. There is severe bilateral facet joint osteoarthritis. There is mild bilat eral neural foraminal stenosis. There is mild central canal stenosis. IMPRESSION: 1. Subacute L1 burst fracture, stable from 05/01/2023 and worsened from 03/19/2023. 2. Severe lumbar spondylosis. Reviewed, dictated and finalized at location A. IMPRESSION: 1. Subacute L1 burst fracture, stable from 05/01/2023 and worsened from 4. 2. Severe lumbar spondylosis.
--- NOTE | ~2023-05-17 | NM_ITS ---
EXAMINATION: NM bone scan whole body DATE: 05/17/2023 15:54 INDICATION: Lumbar radiculopathy. TECHNIQUE: 25.5 mCi Tc-99m HDP was administered intravenously. Delayed whole-body scintigrams were o btained. COMPARISON: Lumbar spine CT 05/17/2023, CT abdomen and pelvis 03/19/2023 FINDINGS: There is a right hip arthroplasty. There is increased activity in right superior pubic wesley s. There is increased activity in L1 vertebral body correlating with a subacute burst fracture by CT. There is joint-centered increased activity in thoracic and lumbar spine correlating with spondylosis by CT. IMPRESSION: 1. Subacute L1 burst fracture. 2. Increased activity in right superior pubic ramus without abnormal CT correlate on 03/19/2023 suspic ious for acute/subacute fracture. Reviewed, dictated and finalized at location A. IMPRESSION: 1. Subacute L1 burst fracture. 2. Increased activity in right superior pubic ramus without abnormal CT correla te on 03/19/2023 suspicious for acute/subacute fracture.
== END 2023-05-17 08:55 | disposition home or self-care (01) ==
PROVIDERS: PCP Family Medicine; Visit Provider Pain Medicine Pain Medicine
DX: M47.26 Other spondylosis with radiculopathy, lumbar region (principal)
CPT/HCPCS: 72131; 78306; A9503

== ENCOUNTER 2023-06-02 08:00 | Outpatient (CLI) | payer MEDICARE, MEDICAID, SELFPAY ==
--- NOTE | ~2023-06-02 | XR_ITS ---
XR lumbar spine 2-3V 06/02/2023 08:14 Indication: Wedge compression fracture of the lumbar vertebra Procedure: 3 views lumbar spine Comparison: 05/01/2023 Findings: Stable appearance to burst fracture of L1 with sclerosis. Pathologic fracture not excluded. There is disc narrowing at L3-4, L4-5 and L5-S1. There is facet hypertrophy at L4-5 and L5-S1. No ne w fractures. Normal lumbar lordosis. Mild dextrocurvature of the lumbar spine on the AP view. Impression: 1: Stable appearance to sclerotic burst fracture of L1. 2: Severe lumbar spondylosis. Reviewed, dictated and finalized at location B. Impression: 1: Stable appearance to sclerotic burst fracture of L1. 2: Severe lumbar spondylosis.
== END 2023-06-02 08:01 | disposition home or self-care (01) ==
PROVIDERS: PCP Family Medicine; Visit Provider Physician Assistant
DX: S32.010A Wedge compression fracture of first lumbar vertebra, initial encounter for closed fracture (principal); X58.XXXA Exposure to other specified factors, initial encounter; M47.896 Other spondylosis, lumbar region
CPT/HCPCS: 72100

== ENCOUNTER 2023-06-28 08:37 | Outpatient (CLI) | payer MEDICARE, MEDICAID, SELFPAY ==
--- NOTE | ~2023-06-28 | US_ITS ---
EXAMINATION: US thyroid DATE: 06/28/2023 09:06 INDICATION: Nontoxic single thyroid nodule. TECHNIQUE: Multiple ultrasound images of the thyroid were obtained. COMPARISON: None. FINDINGS: The right thyroid lobe measures 4.1 x 1.6 x 1.1 cm. The left thyroid lobe measures 4.1 x 1.2 x 1.3 c m. The thyroid is diffusely heterogeneous and hypoechoic. No discrete nodule. Vascularity is normal. IMPRESSION: 1. Heterogeneous thyroid, likely chronic lymphocytic (Vanessa's) thyroiditis. Reviewed, dictated and finalized at location A.
== END 2023-06-28 08:38 | disposition home or self-care (01) ==
LOC: ANHIMG 08:38
PROVIDERS: PCP Family Medicine; Visit Provider Internal Medicine Endocrinology, Diabetes & Metabolism
DX: E04.1 Nontoxic single thyroid nodule (principal)
CPT/HCPCS: 76536

== ENCOUNTER 2023-07-06 10:17 | Outpatient (CLI) | payer MEDICARE, MEDICAID, SELFPAY ==
[2023-07-06 11:02] LABS: Total Volume 24 Hour Urine 1050 ml
[2023-07-06 11:10] LABS: Creatinine 24 Hour Urine 0.8 gm/24 (0.8-1.8); Creatinine Urine 84.5 mg/dL
[2023-07-06 12:11] LABS: Free T4 Free Thyroxine 1.37 ng/mL (0.78-2.19)
[2023-07-14 11:11] LABS: Norepinephrine, 24hr Urine 29
[2023-07-14 11:12] LABS: Calculated Total (E+NE) 29; Dopamine, 24hr Urine 111
== END 2023-07-06 10:18 | disposition home or self-care (01) ==
PROVIDERS: PCP Family Medicine; Visit Provider Internal Medicine Endocrinology, Diabetes & Metabolism
DX: E03.9 Hypothyroidism, unspecified (principal); E27.8 Other specified disorders of adrenal gland; R79.89 Other specified abnormal findings of blood chemistry
CPT/HCPCS: 36415; 81050; 82384; 82530; 82570; 84439; 84443

== ENCOUNTER 2023-08-30 09:16 | Outpatient (CLI) | payer MEDICARE, MEDICAID, SELFPAY ==
--- NOTE | ~2023-08-30 | XR_ITS ---
3 VIEWS LUMBAR SPINE Ordering provider: Karyn Stein MD History: . S32.010A - Wedge compression fracture of first lumbar cuong... . Comparison: June 02, 2023 FINDINGS: VERTEBRAL BODIES:Compression fracture of L1 unchanged from previous examination. Minimal retrolisthes is at. The level of L1-L2. Degenerative changes of the spine. DISK SPACES: Degenerative disc disease at the level of L3-L4 and L4-L5. Facet joint disease at the le shaunna of L4-L5 and L5-S1. SOFT TISSUES: Normal. IMPRESSION: Compression fracture of L1 unchanged from previous examination. Minimal retrolisthesis at the level of L1-L2. Reviewed, dictated and finalized at location A. IMPRESSION: Compression fracture of L1 unchanged from previous examination. Min imal retrolisthesis at the level of L1-L2.
--- NOTE | ~2023-08-30 | CT_ITS ---
EXAMINATION: CT lumbar spine wo con DATE: 08/30/2023 09:38 INDICATION: L1 wedge compression fracture TECHNIQUE: Computed tomography (CT) of the lumbar spine was performed without intravenous contrast. A utomated exposure control and iterative reconstruction technique were employed. The dose-length produ ct was 888.64 mGy-cm. COMPARISON: Lumbar spine radiographs dated 08/30/2023 and 06/02/2023 FINDINGS: Mild lower lumbar dextrocurvature. Age-indeterminate L1 burst fracture likely relatively recent with 80% anterior vertebral body height loss, 20% posterior vertebral body height loss and up to 7-8 mm re tropulsion of a portion of the posterior wall. There is also a 4 mm retrolisthesis of the posterior m argin of the endplate relative to L2. Remaining vertebral body heights are normal. Severe disc height loss with Modic type III sclerotic endplate changes at L4-L5. Moderate disc height loss at L3-L4. Th ere is vacuum phenomena at either side of the burst fracture at T12-L1 and L1-L2. No significant para vertebral hematoma associated with the burst fracture. Paravertebral soft tissues are otherwise unrem arkable. The following disc levels are specifically discussed: T9-T10: The disc does not extend beyond the endplate margin. There is mild bilateral facet osteoarthr itis. The neural foramina are incompletely visualized. Suggestion of mild stenosis on the right. Ther e is no central canal stenosis. T10-T11: The disc does not extend beyond the endplate margin. There is mild bilateral facet osteoarth ritis. There is mild right neural foraminal stenosis. There is no central canal stenosis. T11-T12: Disc is mildly bulging. There is mild bilateral facet joint osteoarthritis. There is mild ri ght neural foraminal stenosis. There is mild central canal stenosis. T12-L1: The disc does not extend beyond the endplate margins with no central canal stenosis at the le shaunna of the disc space. There is however mild to moderate central canal stenosis just below local the disc space resulting from the retropulsion of the cephalad aspect of the posterior wall of the verteb ral body. There is mild left and moderate right facet joint osteoarthritis. There is no neural forami nal stenosis. L1-L2: The disc does not extend beyond the retrolisthesis L1 inferior endplate margin which results i n mild central canal stenosis. There is mild bilateral facet joint osteoarthritis. There is mild left and moderate right neural foraminal stenosis. L2-L3: Disc is bulging. There is mild left and mild to moderate right facet joint osteoarthritis. The re is mild left and mild to moderate right neural foraminal stenosis. There is mild central canal asif nosis. L3-L4: Disc is bulging. There is mild to moderate bilateral facet joint osteoarthritis. There is mild to moderate left and moderate right neural foraminal stenosis. There is mild central canal stenosis. L4-L5: Disc is bulging with small adjacent endplate osteophytes. There is severe left and mild to mod erate right facet joint osteoarthritis. There is moderate bilateral neural foraminal stenosis. There is moderate central canal stenosis. L5-S1: Disc is bulging. There is severe right and moderate to severe left facet joint osteoarthritis. There is moderate left and mild to moderate right neural foraminal stenosis. There is mild central c anal stenosis. IMPRESSION: 1. Recent-appearing L1 burst fracture with retropulsion resulting in mild to moderate central canal s tenosis. 2. Severe lumbar spondylosis. Reviewed, dictated and finalized at location A. IMPRESSION: 1. Recent-appearing L1 burst fracture with retropulsion resulting in mild to mo derate central canal stenosis. 2. Severe lumbar spondylosis.
== END 2023-08-30 09:17 | disposition home or self-care (01) ==
LOC: ANHIMG 09:21
PROVIDERS: PCP Nurse Practitioner Family; Visit Provider Neurological Surgery
DX: S32.010A Wedge compression fracture of first lumbar vertebra, initial encounter for closed fracture (principal); M43.06 Spondylolysis, lumbar region; X58.XXXA Exposure to other specified factors, initial encounter
CPT/HCPCS: 72110; 72131

== ENCOUNTER 2023-09-28 09:17 | Outpatient (CLI) | payer MEDICARE, MEDICAID, SELFPAY ==
[2023-09-28 11:12] LABS: Free T4 Free Thyroxine 1.29 ng/mL (0.78-2.19)
== END 2023-09-28 09:18 | disposition home or self-care (01) ==
PROVIDERS: PCP Nurse Practitioner Family; Visit Provider Internal Medicine Endocrinology, Diabetes & Metabolism
DX: E11.9 Type 2 diabetes mellitus without complications (principal); E03.9 Hypothyroidism, unspecified
CPT/HCPCS: 36415; 84439; 84443

== ENCOUNTER 2024-01-09 09:07 | Outpatient (CLI) | payer MEDICARE, MEDICAID, SELFPAY ==
--- NOTE | ~2024-01-09 | XR_ITS ---
EXAMINATION: XR lumbar spine 2-3V DATE: 01/09/2024 09:44 INDICATION: Wedge compression fracture of first lumbar vertebra. TECHNIQUE: 3 views of lumbar spine were obtained. COMPARISON: Lumbar spine radiographs 08/30/2023, CT lumbar spine 08/30/2023 FINDINGS: There is 4 mm anterolisthesis of T12 on L1 and 3 mm retrolisthesis of L1 and L2. There is a chronic burst fracture of L1 with 4/5 loss of height anteriorly and focal kyphosis. There is severel y decreased disc height at L3-L4 and L4-L5 and moderately decreased disc height at L5-S1. There is mu ltilevel facet joint osteoarthritis, severe in lower lumbar spine. Surgical clips overlie the abdomen . There is a total right hip arthroplasty. IMPRESSION: 1. Chronic L1 burst fracture, stable from 08/30/2023. 2. Severe lumbar spondylosis. Reviewed, dictated and finalized at location A. OMER SUCCESS MANAGER
== END 2024-01-09 09:08 | disposition home or self-care (01) ==
LOC: ANHIMG 09:12
PROVIDERS: PCP Internal Medicine; Visit Provider Neurological Surgery
DX: Z01.818 Encounter for other preprocedural examination (principal); S32.010A Wedge compression fracture of first lumbar vertebra, initial encounter for closed fracture; X58.XXXA Exposure to other specified factors, initial encounter; M47.896 Other spondylosis, lumbar region
CPT/HCPCS: 72100

== ENCOUNTER 2024-05-08 09:23 | Outpatient (CLI) | payer MEDICARE, MEDICAID, SELFPAY ==
--- OUTSIDE RECORDS SUMMARY | 2024-05-08 10:08 | XMS_ITS | Continuity of Care Document ---
Author Organization [facility] Address [address] [place] [address] [address] [place] [address] Phone Care Team Providers Care Distribution Center Associate Name Role Phone Tolentino OD, Martell Unavailable Unavailable Procedures Procedure Date Eye Exam & Treatment Refraction Advance Directives Directive Yes / No Effective Date File Name No Information Encounters Encounter Description Practice Location Reason(s) For Visit Diagnoses Date Provider Providers Copied on Encounter [facility], [address] [place] [address] [address], [place], [place], [id number], [place] tel:[phone] [facility] No Information 3-201 0 Tolentino OD Martell. [address] , [address], [place], [place], [facility], [place]. tel:[phone] Referring Provider: Rukhsana Palmer [address], [place], [place], [facility]. tel:[phone] Family History Family Member Type Diagnosis Age At Onset No Information Payers Payer name Insurance type Covered constitution party ID Authoriza tion(s) No Information Social History Type Description Quantity Date Captured Comments Sex Female Smoking Status No Information Chief Complaint And Reason For Visit No Information Reason For Referral Reason For Referral No Information History Of Present Illness Encounter Date Complaint History Of Prese nt Illness No Information Functional Status Date Functional Assessmen t No Information Instructions Date Instruction Additional Infor mation No Information Assessments Type Assessment Date No Information Patient Care Teams Name Effective Dates (start - stop) Status Members No Information
--- OUTSIDE RECORDS SUMMARY | 2024-05-08 10:08 | XMS_ITS | Encounter Summary ---
Author Organization [facility] Address [address] [facility] [place] [address] Care Team Providers Care Associate Sales Representative Name Role Phone Kady Singh MD Primary Care Provider [phone] Encounter Details Date Type Department Care Team (Late st Contact Info) Description 06/16/2023 Telephone [facility] - D[facility]atology [address] [facility], [place] [address] Mayra Louis DO [address] [place] [phone] Social History Tobacco Use Types Packs/Day Years Used Date Smoking Tobacco: Every Day Cigarettes 0.5 56 Smokeless Tobacco: Never Alcohol Use Standard Drinks/Week Comments No 0 (1 standard drink = 0.6 oz pur e alcohol) Sex and Gender Information Value Date Recorded Sex Assigned at Not on file Gender Identity Not on file Sexual Orientation Not on file documented as of this encounter Functional Status Functional Status Response Date of Assess ment Is person deaf or have serious hearing difficult y? No 05/11/2023 Is person blind or have serious difficulty seein g? No 05/11/2023 Does person have serious dif ficulty walking/climbing stairs? No 05/11/2023 Does person have difficulty dressing/bathing? No 05/11/2023 Does person have difficulty doing errands alone? No 05/11/2023 Cognitive Status Response Date of Assessm ent Does person have difficulty concentrating/remembering/making decisions? No 05/11/2023 documented as of this encounter Miscellaneous Notes * Telephone Encounter - Debo Sanchez - 06/16/2023 10:41 AM CDT Current Provider: Reason for Call: medicare doesn't cover pressure socks....needing doc office to call DME for [place] Medicaid to see if they will cover the pressure socks Patient Call Back Number: [phone] documented in this encounter Plan of Treatment Upcoming Encounters Date Type Department Care Team (Late st Contact Info) Description 05/27/2024 10:15 AM CDT Appointment [facility] [id number] [place] [address] Wayne Vasquez MD [address] [place] [address] [address] [place] [address] 05/27/2024 11:30 AM CDT Office Visit [facility] - GI [address] [place] [phone] Wayne Vasquez MD [address] [place] [address] [address] [place] [address] 05/27/2024 1:20 PM CDT Office Visit [facility] - Dermatology [address] [place] [phone] Tiana Katz MD [address] [place], [place] [address] [address] documented as of this encounter Goals Goal Patient Goal Type Associated Problems Recent Progress Patient-Stated? Author Medication Management General On track( 024 10:31 AM CDT) No Karyn Pozo, RN Note: Expected end date: Ongoing Interventions: Take all medications as prescribed Let your doctor know right away about any changes in your medications Make sure to request a refill of your medication at least one week prior to your last dose documented as of this encounter Visit Diagnoses Not on filedocumented in this encounter Care Teams Associate Sales Representative Relationship Specialty Start Date End Date Kady Singh MD [address] [place] [address] [place] [phone] PCP - General Family Medicine 04/18/22 documented as of this encounter
--- OUTSIDE RECORDS SUMMARY | 2024-05-08 10:08 | XMS_ITS | Encounter Summary ---
Author Organization [facility] Address [address] [facility] [place] [address] Care Team Providers Care Greens Picker Name Role Phone Sue Michel Primary Care Provider + Kady Singh MD Primary Care Provider [phone] Reason for Visit * Reason Onset Date Comments MEDICATION REFILL 11/04/2019 Encounter Details Date Type Department Care Team (Late st Contact Info) Description 11/04/2019 Refill [facility] [address] [place] [address] Adrienne Box MD No Information available MEDICATION REFILL Social History Tobacco Use Types Packs/Day Years Used Date Smoking Tobacco: Some Days Cigarettes Smokeless Tobacco: Never Alcohol Use Standard Drinks/Week Comments No 0 (1 standard drink = 0.6 oz pur e alcohol) occ Sex and Gender Information Value Date Recorded Sex Assigned at Not on file Gender Identity Not on file Sexual Orientation Not on file documented as of this encounter Miscellaneous Notes * Telephone Encounter - Annalisa Vargas - 11/04/2019 4:57 PM CDT [place] 12/03/18 No follow up Annalisa Vargas MA documented in this encounter Plan of Treatment Upcoming Encounters Date Type Department Care Team (Late st Contact Info) Description 05/27/2024 10:15 AM CDT Appointment [facility] [address] [place] [address] Wayne Vasquez MD [address] [place] [address] [address] [place] [address] 05/27/2024 11:30 AM CDT Office Visit [facility] - GI [address] [place] [phone] Wayne Vasquez MD [address] [place] [address] [address] [place] [address] 05/27/2024 1:20 PM CDT [facility] [address] [place] [phone] Tiana Katz MD [address] [place], [place] [address]T [place] [address] documented as of this encounter Visit Diagnoses Not on filedocumented in this encounter Care Teams Greens Picker Relationship Specialty Start Date End Date Sue Michel APRN-ECHOCARDIOGRAPH TECH [address] [phone] PCP - General 09/12/19 04/17/22 Kady Singh MD [address] [place] [address] [place] [address] PCP - General Family Medicine 04/18/22 documented as of this encounter
--- OUTSIDE RECORDS SUMMARY | 2024-05-08 10:08 | XMS_ITS | CONTINUITY OF CARE DOCUMENT ---
Author Name taras, taras Address Unknown Organization [facility] Address [address] [place] [address] Phone [phone] Care Team Providers Care Interventionist Name Role Phone Rowdy KHAN, Deysi Unavailable MAXX MOREL Unavailable [phone] MAXX MOREL Unavailable PROBLEMS Condition Status Date Provider Notes S/P Dual AICD - Biotronik ( MRI SAFE) active Tamy Huddleston Back pain active Deysi Reno MD Dizziness active Rocky Rona Lung nodule active Deysi Reno MD Cardiac aneurysm, left ventricular apex- MRI shows apical hypertrophy active Deysi Reno MD Pre-procedural laboratory examination completed - Michael Robison Defibrillator active Moisés Garcia MD (Stat us post) 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 12/27 active Deysi Reno MD JULY, using CPAP active Deysi Reno MD Renal disease, chronic, CKD 3 GFR 44, follows with ROXANNE Reno active Deysi Reno MD Atrial fibrillation, paroxysmal, s/p cv in 02/26, now in SR, on Eliquis active Deysi Reno MD Hyperlipidemia active Deysi Reno MD Confusion completed - Deysi Reno MD Double vision active Deysi Reno MD Edema active Deysi Reno MD Chest pain stress test nl 08/2016 - 20% LAD, otherwise normal 01/23 active Deysi Reno MD Tobacco abuse active Deysi Reno MD Hypercholesterolemia completed - Deysi Reno MD HTN essential--echo ef nl, mild MR, 04/2023 active Michael Betancourtmaral Diabetes mellitus active Deysi Reno MD FAMILY HISTORY OF HEART DISEASE completed - Deysi Reno MD Shortness of breath active Deysi Reno MD Syncope-- carotid US <50% bilateral stenosis 12/2020 active Deysi Reno MD Palpitations active Deysi Reno MD ENCOUNTERS Date Type Provider Location Encounter Diag nosis - In-person encounter Office Visit Deysi Reno MD [facility] HTN essential--echo ef nl, mild MR, 04/2023 - In-person encounter Office Visit Deysi Reno MD [facility] Back pain - In-person encounter Office Visit Deysi Reno MD [facility] Dizziness - In-person encounter Office Visit Wily Avitia MD [facility] - In-person encounter Office Visit Deysi Reno MD [facility] - In-person encounter Office Visit Deysi Reno MD [facility] Cardiac aneurysm, left ventricular apex- MRI shows apical hypertrophy - In-person encounter Office Visit Deysi Reno MD [facility] Lung nodule - In-person encounter Office Visit Wily Avitia MD [facility] Cardiac aneurysm, left ventricular apex- MRI shows apical hypertrophy - In-person encounter Office Visit Wily Avitia MD [facility] - In-person encounter Office Visit Deysi Reno MD [facility] - In-person encounter Office Visit Deysi Reno MD [facility] - In-person encounter Office Visit Deysi Reno MD [facility] Pre-procedural laboratory examination - In-person encounter Office Visit Moisés Garcia MD [facility] Defibrillator - In-person encounter Office Visit Deysi Reno MD [facility] FAMILY HISTORY OF HEART DISEASE - In-person encounter Office Visit Deysi Reno MD [facility] Syncope-- carotid US <50% bilateral stenosis 12/2020HTN essential--echo ef nl, mild MR, 04/2023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 12/27 - In-person encounter Office Visit Deysi Reno MD [facility] - In-person encounter Office Visit Deysi Reno MD [facility] JULY, using CPAP - In-person encounter Office Visit Deysi Reno MD [facility] ConfusionAtrial fibrillation, paroxysmal, s/p cv in 02/26, now in SR, on EliquisOSA, using CPAP - In-person encounter Office Visit Deysi Reno MD [facility] Atrial fibrillation, paroxysmal, s/p cv in 02/26, now in SR, on EliquisRenal disease, chronic, CKD 3 GFR 44, follows with ROXANNE Reno - In-person encounter Office Visit Deysi Reno MD [facility] Hyperlipidemia - In-person encounter Office Visit Deysi Reno MD [facility] Double vision - In-person encounter Office Visit Deysi Reno MD [facility] Chest pain stress test nl 08/2016 - 20% LAD, otherwise normal 01/23 - In-person encounter Office Visit Deysi Reno MD [facility] - In-person encounter Office Visit Deysi Reno MD [facility] Edema - In-person encounter Office Visit Deysi Reno MD [facility] Syncope-- carotid US <50% bilateral stenosis hest pain stress test nl 08/2016 - 20% LAD, otherwise normal 01/23 - In-person encounter Office Visit Deysi Reno MD [facility] Chest pain stress test nl 08/2016 - 20% LAD, otherwise normal 01/23 - In-person encounter Office Visit Deysi Reno MD [facility] Hypercholesterolemia - In-person encounter Office Visit Deysi Reno MD [facility] - In-person encounter Office Visit Deysi Reno MD [facility] - In-person encounter Office Visit Deysi Reno MD [facility] PalpitationsSyncope-- carotid US <50% bilateral stenosis hortness of breathDiabetes mellitusHTN essential--echo ef nl, mild MR, 04/2023Tobacco abuse VITAL SIGNS Date Observation Value Provider Body Mass Index (Ratio) 30.04 kg/m2 Derick Reno MD blood pressure, cuff size regular Jose Massey blood pressure, diastolic 68 mm[Hg] Jose Massey blood pressure, systolic 110 mm[Hg] Morgan Massey oxygen saturation, oximetry 98 % Dayan Massey pulse rate 81 /min Dayan Massey weight E&M 159 [lb_av] Dayan Massey respiratory rate E&M 12 /min Dayan Massey height E&M 61 [in_i] Dayan Massey Body Mass Index (Ratio) 30.98 kg/m2 Derick Reno MD blood pressure, diastolic 64 mm[Hg] Li nkLog blood pressure, systolic 106 mm[Hg] Marlene og blood pressure, cuff size regular [facility] blood pressure, diastolic 64 mm[Hg] [facility] blood pressure, systolic 106 mm[Hg] [facility] 98 /min [facility] respiratory rate E&M 16 /min Viry M iller oxygen saturation, oximetry 97 % [facility] weight E&M 164 [lb_av] [facility] height E&M 61 [in_i] [facility] Body Mass Index (Ratio) 34.38 kg/m2 Derick Reno MD blood pressure, cuff size regular [facility] blood pressure, diastolic 56 mm[Hg] [facility] blood pressure, systolic 81 mm[Hg] [facility] oxygen saturation, oximetry 97 % [facility] respiratory rate E&M 16 /min [facility] iller pulse rate 70 /min [facility] weight E&M 182 [lb_av] [facility] height E&M 61 [in_i] [facility] Body Mass Index (Ratio) 34.57 kg/m2 Michael Robison blood pressure, cuff size regular Ke rri Gruenenfelder blood pressure, diastolic 60 mm[Hg] Ke rri Gruenenfelder blood pressure, systolic 104 mm[Hg] Allan Cullennenfelder oxygen saturation, oximetry 98 % Edel Norris respiratory rate E&M 12 /min Edel sumnereldshaun pulse rate 93 /min Edel Ceballos [facility] weight E&M 183 [lb_av] Edel Ceballos [facility] height E&M 61 [in_i] Edel Ceballos [facility] Body Mass Index (Ratio) 35.39 kg/m2 Shelbi Garcia blood pressure, diastolic 72 mm[Hg] britany Novak blood pressure, systolic 142 mm[Hg] She obie Novak blood pressure, cuff size regular britany Novak oxygen saturation, oximetry 100 % Sheron Novak respiratory rate E&M 18 /min Sheron Novak pulse rate 81 /min Sheron Novak weight E&M 187.3 [lb_av] Sheron Novak height E&M 61 [in_i] Sheron Novak Body Mass Index (Ratio) 34.76 kg/m2 Derick Reno MD respiratory rate E&M 14 /min Miracle atkinson blood pressure, cuff size large An amrit Vargas blood pressure, diastolic 79 mm[Hg] An amrit Vargas blood pressure, systolic 141 mm[Hg] Any a Sam oxygen saturation, oximetry 97 % Miraclejoyce Vargas pulse rate 81 /min Miracle Sam weight E&M 184 [lb_av] Miracle Sam height E&M 61 [in_i] Miracle Sam Body Mass Index (Ratio) 33.33 kg/m2 Derick Reno MD blood pressure, diastolic 64 mm[Hg] St bre Jerez blood pressure, systolic 113 mm[Hg] Beulah Jerez pulse rate 61 /min Lucy Jerez oxygen saturation, oximetry 98 % Lucy Jerez respiratory rate E&M 16 /min Lucydanny dong weight E&M 176.4 [lb_av] Lucy Solitario height E&M 61 [in_i] Lucydanny Jerez Body Mass Index (Ratio) 34.01 kg/m2 Christoph Avitia MD blood pressure, cuff size large Ke rri Jr blood pressure, diastolic 75 mm[Hg] Ke rri Prestonueneedna blood pressure, systolic 121 mm[Hg] Allan ri Jr oxygen saturation, oximetry 98 % Edel Jr respiratory rate E&M 16 /min Edel G cora pulse rate 80 /min Edel Lin diez weight E&M 180 [lb_av] Edel Lin diez height E&M 61 [in_i] Edel Lin diez Body Mass Index (Ratio) 34.95 kg/m2 Christoph Avitia MD blood pressure, diastolic 62 mm[Hg] Haily Hubbard blood pressure, systolic 97 mm[Hg] Eamon Hubbard oxygen saturation, oximetry 98 % Nuha Hubbard pulse rate 110 /min Nuha ibarra weight E&M 185 [lb_av] Nuha ibarra respiratory rate E&M 16 /min Jo Hubbard blood pressure, cuff size large Haily Hubbard height E&M 61 [in_i] Nuha ibarra Body Mass Index (Ratio) 34.38 kg/m2 Derick Reno MD blood pressure, diastolic 67 mm[Hg] Neema nkLognico blood pressure, systolic 80 mm[Hg] Marlene kLognico blood pressure, diastolic 67 mm[Hg] Haily Hubbard blood pressure, systolic 80 mm[Hg] Eamon hunter [place] oxygen saturation, oximetry 99 % Nuha [place] pulse rate 114 /min Nuha Meeks cesario weight E&M 182 [lb_av] Nuha Meeks cesario respiratory rate E&M 16 /min Jo whitman Hubbard blood pressure, cuff size large Haily betts [place] height E&M 61 [in_i] Nuha Meeks d blood pressure, diastolic 79 mm[Hg] Sa ra Navarro blood pressure, systolic 122 mm[Hg] Hever a Navarro oxygen saturation, oximetry 97 % Tiesha Navarro respiratory rate E&M 18 /min Tiesha Si ms pulse rate 88 /min Tiesha Navarro blood pressure, cuff size regular Sa ra Navarro height E&M 61 [in_i] Tiesha Navarro Body Mass Index (Ratio) 36.65 kg/m2 Derick Reno MD blood pressure, diastolic 66 mm[Hg] Li nkLogic blood pressure, systolic 132 mm[Hg] Marlene kLogic blood pressure, diastolic 66 mm[Hg] Ca therine [place] blood pressure, systolic 132 mm[Hg] Cat herine [place] oxygen saturation, oximetry 95 % Carol [place] respiratory rate E&M 16 /min Catheri ne [place] pulse rate 65 /min Carol [place] weight E&M 194 [lb_av] Carol Kvng blood pressure, cuff size regular Ca therine [place] height E&M 61 [in_i] Carol Kvng Body Mass Index (Ratio) 36.65 kg/m2 Crow Garcia MD blood pressure, diastolic -1 mm[Hg] Neema nkLogic blood pressure, systolic 110 mm[Hg] Marlene kLogic blood pressure, diastolic 57 mm[Hg] Ca therine Kvng blood pressure, systolic 110 mm[Hg] Cat herine Kvng oxygen saturation, oximetry 97 % Carol [place] respiratory rate E&M 16 /min Catheri ne Kvng pulse rate 74 /min Carol [place] weight E&M 194 [lb_av] Carol [place] blood pressure, cuff size large Ca therine [place] height E&M 61 [in_i] Carol [place] Body Mass Index (Ratio) 35.52 kg/m2 Derick Reno MD blood pressure, cuff size large Nv alpesh [place] blood pressure, diastolic 86 mm[Hg] Nv alpesh [place] blood pressure, systolic 132 mm[Hg] [facility] dale [place] oxygen saturation, oximetry 95 % Nuha Hubbard respiratory rate E&M 16 /min Jo whitman [place] pulse rate 74 /min Nuha ibarra weight E&M 188 [lb_av] Nuha ibarra height E&M 61 [in_i] Nuha ibarra Body Mass Index (Ratio) 35.14 kg/m2 Derick Reno MD blood pressure, cuff size large Ca therine [place] blood pressure, diastolic 76 mm[Hg] Ca therine [place] blood pressure, systolic 122 mm[Hg] Cat herine [place] oxygen saturation, oximetry 64 % Carol Kvng pulse rate 97 /min Carol [place] respiratory rate E&M 14 /min Catheri ne [place] weight E&M 186 [lb_av] Carol Kvng height E&M 61 [in_i] Carol Kvng Body Mass Index (Ratio) 35.33 kg/m2 Derick Reno MD blood pressure, cuff size large Haily betts [place] blood pressure, diastolic 82 mm[Hg] Mi alpesh [place] blood pressure, systolic 130 mm[Hg] Eamon dale [place] oxygen saturation, oximetry 99 % Nuha [place] respiratory rate E&M 16 /min Jo antonette [place] pulse rate 97 /min Nuha ibarra weight E&M 187 [lb_av] Nuhatorri Meeks d height E&M 61 [in_i] Nuha ibarra Body Mass Index (Ratio) 38.54 kg/m2 Derick Reno MD blood pressure, cuff size large Ke rri Gruenenfcindi blood pressure, diastolic 70 mm[Hg] Ke rri Gruenenfeldshaun blood pressure, systolic 120 mm[Hg] Ker ri Alyseneedna oxygen saturation, oximetry 92 % Edel Jr respiratory rate E&M 16 /min Edel Shad shepherd pulse rate 67 /min Edel Gruenelulie andriyer weight E&M 204 [lb_av] Edel Gruenenfe lder height E&M 61 [in_i] Edel Gruenenfe lder Body Mass Index (Ratio) 38.16 kg/m2 Derick Reno MD respiratory rate E&M 16 /min Chastit y Chandler blood pressure, diastolic 67 mm[Hg] Ch astity [place] blood pressure, systolic 116 mm[Hg] Kathia stity [place] oxygen saturation, oximetry 97 % [facility] 67 /min [facility] E&M 202 [lb_av] [facility] height E&M 61 [in_i] [facility] Body Mass Index (Ratio) 37.60 kg/m2 Derick Reno MD blood pressure, cuff size large Ke rri Gruenenfgrace cottage hospitalshaun blood pressure, diastolic 80 mm[Hg] Ke rri Gruenenfeld blood pressure, systolic 142 mm[Hg] Ker ri Prestonkevinnenfh[facility] oxygen saturation, oximetry 99 % Edel kevintamracobre [facility] respiratory rate E&M 16 /min Edel G ruenecobre [facility] pulse rate 144 /min Edel Grkevinnenfe [facility] weight E&M 199 [lb_av] Edel Gruenenfe er height E&M 61 [in_i] Edel Gruenenfe [facility] Body Mass Index (Ratio) 39.67 kg/m2 Derick Reno MD oxygen saturation, oximetry 97 % [facility] pulse rate 86 /min [facility] blood pressure, diastolic 62 mm[Hg] Br ittany Block blood pressure, systolic 130 mm[Hg] Willow tt[facility] weight E&M 210 [lb_av] [facility] respiratory rate E&M 16 /min Brittan Block height E&M 61 [in_i] Brandy Block temperature E&M 97.4 [degF] Theresa Tanks damaso Body Mass Index (Ratio) 39.67 kg/m2 Derick Reno MD blood pressure, resting Yes Derick Reno MD blood pressure, cuff size regular Cy katiana Ackerman blood pressure, diastolic 70 mm[Hg] Danny ntmaranda Ackerman blood pressure, systolic 130 mm[Hg] Keke Ackerman pulse rate 76 /min Janis osman oxygen saturation, oximetry 98 % Janis Ackerman respiratory rate E&M 16 /min Janis Ackerman weight E&M 210 [lb_av] Janis osman height E&M 61 [in_i] Janis osman Body Mass Index (Ratio) 40.05 kg/m2 Derick Reno MD blood pressure, cuff size large Ke rri Jr blood pressure, diastolic 70 mm[Hg] Ke jovanii Jr blood pressure, systolic 140 mm[Hg] Allan Norris oxygen saturation, oximetry 98 % Edel Norris respiratory rate E&M 22 /min Edel shepherd pulse rate 77 /min Edel Ceballos [facility] weight E&M 212 [lb_av] Edel Lin [facility] height E&M 61 [in_i] Edel Lin [facility] Body Mass Index (Ratio) 38.35 kg/m2 Derick Reno MD oxygen saturation, oximetry 97 % Chastity Chandler blood pressure, diastolic 62 mm[Hg] Ch astity Chandler blood pressure, systolic 126 mm[Hg] Kathia stity Chandler pulse rate 70 /min Chastity Chandler respiratory rate E&M 16 /min Chastit y Chandler weight E&M 203 [lb_av] Chastity Chandler height E&M 61 [in_i] Chastity Chandler Body Mass Index (Ratio) 39.86 kg/m2 Derick Reno MD blood pressure, cuff size large Ke rri Johnathanshaun blood pressure, diastolic 70 mm[Hg] Fito rri Jr blood pressure, systolic 126 mm[Hg] Allan Roacindi oxygen saturation, oximetry 98 % Edel Norris respiratory rate E&M 20 /min Edel Kulkarni taylordeshawnedna pulse rate 71 /min Edel Ceballos lder weight E&M 211 [lb_av] Edel Ceballos lder height E&M 61 [in_i] Edel Ceballos er Body Mass Index (Ratio) 37.75 kg/m2 Derick Reno MD blood pressure, diastolic 70 mm[Hg] To oskar Reno MD blood pressure, systolic 130 mm[Hg] Daniel Reno MD oxygen saturation, oximetry 98 % Deysi Reno MD pulse rate 77 /min Deysi Reno MD weight E&M 199.8 [lb_av] Deysi Ibarra height E&M 61 [in_i] Deysi Reno MD Body Mass Index (Ratio) 37.41 kg/m2 Derick Reno MD blood pressure, cuff size large Suellen Katz blood pressure, diastolic 64 mm[Hg] Suellen Katz blood pressure, systolic 120 mm[Hg] Lisa Katz oxygen saturation, oximetry 98 % Lucy Katz respiratory rate E&M 16 /min Lucy Katz pulse rate 83 /min Lucy Katz weight E&M 198 [lb_av] Lucy Katz height E&M 61 [in_i] Lucy Katz Body Mass Index (Ratio) 35.14 kg/m2 Derick Reno MD blood pressure, cuff size regular Ke rri Prestonita blood pressure, diastolic 56 mm[Hg] Fito adam Jovannalulicindi blood pressure, systolic 98 mm[Hg] Allan vizcarra Jovannalulicindi oxygen saturation, oximetry 98 % Edel Johnstonkevindinhcindi respiratory rate E&M 16 /min Edel Kulkarni taylordeshawnedna pulse rate 90 /min Edel Ceballos er weight E&M 186 [lb_av] Edel Ceballos lder height E&M 61 [in_i] Edel Roae andriyer blood pressure, diastolic 72 mm[Hg] Carol Kraus blood pressure, systolic 132 mm[Hg] Brittany Kraus pulse rate 92 /min Devyn valera oxygen saturation, oximetry 97 % Devyn Kraus respiratory rate E&M 16 /min Nahun Kraus Body Mass Index (Ratio) 36.65 kg/m2 Hermelinda Kraus weight E&M 194 [lb_av] Devyn valera blood pressure, diastolic 73 mm[Hg] Carol Kraus blood pressure, systolic 118 mm[Hg] Brittany Kraus Body Mass Index (Ratio) 37.90 kg/m2 Radha Kraus pulse rate 79 /min Devyn valera oxygen saturation, oximetry 96 % Devyn Kraus respiratory rate E&M 16 /min Nahun Kraus weight E&M 200.6 [lb_av] Devyn monroe blood pressure, diastolic 79 mm[Hg] Carol Kraus blood pressure, systolic 146 mm[Hg] Brittany Kraus Body Mass Index (Ratio) 37.48 kg/m2 RadhaBernadine Kraus pulse rate 84 /min Devyn valera oxygen saturation, oximetry 96 % Devyn Kraus respiratory rate E&M 18 /min Nahun Kraus weight E&M 198.4 [lb_av] Devyn monroe height E&M 61 [in_i] Devyn valera ALLERGIES Allergy Name Onset Date Reaction Criticality Status HUMIRA High Criticality active SULFASALAZINE High Criticality activ e NSAIDS gfr are low not to take Low Critical ity active AUGMENTIN Low Criticality active MELOXICAM Low Criticality active RESULTS Date Observation Value Provider Reference Range Interpretation Location bacteria, urine microscopy Many LinkLogic None seen/Few Abnormal hyaline casts, urine None seen Link[facility]ic None seen epithelial cells, urine >10 [facility] 0 - 10 Abnormal RBC, Urine 0-2 /hpf [facility] 0 - 2 WBC urine on microscopy >30 /hpf [facility] 0 - 5 Abnormal urinalysis, microscopic examination See below: Link[facility] nitrate, urine Negative [facility] Negative urobilinogen, urine, semiquantitative (dipstick) 0.2 [facility] 0.2-1.0 bilirubin, urine Negative LinkLogic Negative hemoglobin, urine, by dipstick Negative Link[facility]ic Negative ketones, urine, by test strip Negative LinkLogic Negative glucose, urine 3+ LinkLogic Negative Abnormal protein, urine, semiquantitative (dipstick) Negative LinkLogic Negative/Tra ce leukocyte esterase, urine, by dipstick 1+ Link[facility]ic Negative Abnormal appearance, urine Cloudy LinkLogic Clear Abnormal urine color Yellow LinkLogic Yellow pH, urine, semiquantitative 5.0 [facility] 5.0-7.5 specific gravity, body fluid >=1.030 Link[facility] 1.005-1.030 Abnormal activated partial thromboplastin time (aPTT) 39 s [facility] 24-33 High prothrombin time (patient) 13.5 s Link[facility] 9.1-12.0 High international normalized ratio (INR) 1.3 [facility] 0.9-1.2 High basophil count, absolute 0.1 x10E3/uL Link[facility]ic 0.0-0.2 Eosinophil Absolute Count 0.2 X10E3/UL LinkLog[facility] 0.0-0.4 monocyte count, blood, automated 0.6 X10E3/UL [facility] 0.1-0.9 lymphocyte count, blood, automated 1.8 X10E3/UL [facility] 0.7-3.1 Absolute Neutrophils 4.7 X10E3/UL [facility] 1.4-7.0 basophils as percent of blood leukocytes 1 % LinkLogic Not Estab. eosinophils as percent of blood leukocytes 3 % Link[facility]ic Not Estab. monocytes as percent of blood leukocytes 8 % LinkLogic Not Estab. lymphocytes as percent of blood leukocytes 24 % Link[facility] Not Estab. neutrophils as percent of blood leukocytes 63 % [facility] Not Estab. platelet count 169 X10E3/UL [facility] 106-081 7781/12/ 24 red blood cell distribution width 13.0 % [facility] 11.7-15.4 mean corpuscular hemoglobin concentration, RBC 32.5 G/DL [facility] 31.5-35.7 mean corpuscular hemoglobin, RBC 31.2 pg [facility] 26.6-33.0 mean corpuscular volume, RBC 96 fL [facility] 79-97 hematocrit, blood 43.7 % [facility] 34.0-46.6 hemoglobin, blood 14.2 g/dL [facility] 11.1-15.9 erythrocyte (RBC) count 4.55 X10E6/UL [facility] 3.77-5.28 leukocyte count, blood 7.4 X10E3/UL [facility] 3.4-10.8 alanine aminotransferase (SGPT), serum 28 1/L [facility] 0-32 aspartate aminotransferase (SGOT), serum 28 1/L [facility] 0-40 alkaline phosphatase, serum 113 1/L [facility] 44-121 bilirubin, serum, total 0.4 mg/dL [facility] 0.0-1.2 albumin/globulin ratio, serum 1.5 [facility] 1.2-2.2 globulin, serum 2.8 [facility] 1.5-4.5 albumin, serum 4.1 g/dL [facility] 3.8-4.8 protein, total, serum 6.9 g/dL [facility] 6.0-8.5 calcium, serum 9.7 mg/dL [facility] 8.7-10.3 carbon dioxide, venous blood 19 mmol/L [facility] 20-29 Low chloride, serum 101 mmol/L [facility] 96-106 potassium, serum 4.9 mmol/L [facility] 3.5-5.2 sodium, serum 140 mmol/L [facility] 585-366 6073/12/ 24 urea nitrogen/creatinine ratio, serum 10 [facility] 12-28 Low eGFR if 62 mL/min/{1.7 3_m2} Link[facility]ic >59 eGFR if not 54 mL/min/{1.7 3_m2} [facility]ic >59 Low creatinine, serum 1.08 mg/dL Link[facility] 0.57-1.00 High urea nitrogen, blood 11 mg/dL [facility] 8-27 blood glucose, random 127 mg/dL [facility] 65-99 High eGFR if 81 mL/min/{1.7 3_m2} Link[facility]ic >59 eGFR if not 71 mL/min/{1.7 3_m2} LinkLogic >59 creatinine, serum 0.88 mg/dL LinkLog[facility] 0.57-1.00 HISTORY OF MEDICATION USE Medication Status Instructions Dates Provider Indications Com ments allopurinol 100 mg tablet active TAKE 1 TABLET BY MOUTH EVERY DAY Kellee Ruple Farxiga 10 mg tablet active TAKE 1 TABLET BY MOUTH EVERY DAY Breanne Rushing Cosentyx 150 mg/mL syringe active Michael Robison nicotine 21 mg/24 hr patch [address] PATCH ON THE SKIN DAILY FOR 28 DAYS FOR 4 WEEKS Michael Robison cyclobenzaprine 5 mg tablet active Michael Robison Ozempic 2 mg/dose (8 mg/3 mL) pen injector active Michael Robison triamcinolone acetonide 0.1% ointment active APPLY TO AFFECTED AREAS TWICE A DAY NEEDED . 30 DAY SUPPLY Michael Robison allopurinol 100 mg tablet completed Take 1 tablet by mouth once a day - Kellee Ruple amitriptyline 10 mg tablet completed Take 1 tablet by mouth once a day - Michael Robison dofetilide 250 mcg capsule active TAKE 1 CAPSULE BY MOUTH TWICE A DAY Kellee Ruple Eliquis 5 mg tablet active TAKE 1 TABLET BY MOUTH TWICE A DAY Kellee Ruple Farxiga 10 mg tablet completed Take 1 tablet by mouth once a day - Breanne Rushing furosemide 40 mg tablet active TAKE 1 TABLET BY MOUTH DIRECTED NEEDED Breanne Rushing pravastatin 40 mg tablet active Take 1 tablet by mouth every evening Edel Norris Ozempic 0.25 mg or 0.5 mg (2 mg/3 mL) pen injector completed - Michael Mariannedanielle losartan 50 mg tablet active Rocky Rea Eliquis 5 mg tablet completed TAKE 1 TABLET BY MOUTH TWICE A DAY - Edel Norris furosemide 40 mg tablet completed TAKE 1 TABLET BY MOUTH NEEDED - Edel Norris Eliquis 5 mg tablet completed - [facility] calcitriol 0.25 mcg capsule active Michael Mariannedanielle glimepiride 2 mg tablet active Michael Serafinmaral furosemide 40 mg tablet completed - [facility] gabapentin 300 mg capsule completed - Michael Mariannedanielle dofetilide 250 mcg capsule completed TAKE 1 CAPSULE BY MOUTH TWICE A DAY - Edel Norris Tikosyn 250 mcg capsule completed Take 1 capsule by mouth twice a day - Amita Jameson RN Tikosyn 250 mcg capsule completed Take 1 capsule by mouth twice a day - Serge Cadet RN diltiazem HCl 90 mg tablet active TAKE 1 TABLET BY MOUTH TWICE A DAY Kellee Valverde magnesium oxide 400 mg magnesium tablet active Take 1 tablet by mouth twice a day Edel Norris midodrine 5 mg tablet active TAKE 1 TABLET BY MOUTH TWICE A DAY Kelleelachelle Lockeple furosemide 40 mg tablet completed Take 1 tablet by mouth once a day - Michael Robison pravastatin 40 mg tablet completed - Edel Norris amlodipine 2.5 mg tablet completed - Michael Robison Farxiga 10 mg tablet completed - Edel Norris fenofibrate 54 mg tablet active Michael Robison liothyronine 5 mcg tablet active Take 1 tablet by mouth twice a day Deysi Reno MD metformin 500 mg tablet extended release 24 hr active TAKE 1 TABLET BY MOUTH TWICE A DAY Michael Robison tramadol 50 mg tablet active 1 tablet every six hours as needed for pain Moisés Garcia MD Cipro 500 mg tablet completed 1 tablet twice a day - Moisés Garcia MD metoprolol tartrate 100 mg tablet completed Take 1 tablet by mouth as directed Take one tablet at 7:30AM the morning of your test - Amita Jameson RN Jardiance 10 mg tablet completed Take 1 tablet by mouth once a day - Michael Robison metoprolol succinate 25 mg tablet extended release 24 hr completed TAKE 1 TABLET BY MOUTH TWICE A DAY - Michale Robison allopurinol 100 mg tablet completed 1 tablet once a day - Edel Norris ketoconazole 2% cream active Apply twice a day Kathiastity Chandler #60, 30 days supply, Prescribed by DAPHNE HAINES, Filled 12/04/2019 fluconazole 150 mg tablet completed Take 1 tablet by mouth once a week as needed - Rocky Rea #8, 56 days supply, Prescribed by ASHLEE SUERO, Filled 01/05/2020 metformin 1,000 mg tablet completed 1 tablet twice a day - Kathiastity Chandler #180, 90 days supply, Filled 03/14/2020 Eliquis 5 mg tablet completed Take 1 tablet twice a day - Marisol Morrison DOG FENNEL SOLUTION completed four times a day - Michael Robison CALCIUM + D3 600-200 MG-UNIT ORAL TABLET active 1 tablet once a day Edel Norris metoprolol succinate 25 mg tablet extended release 24 hr completed two tablets per day in the evening - 2021/09 /29 Tia Hanna Prolia 60 mg/mL syringe completed 1 - Michael Robison tramadol 50 mg tablet completed Take 1-2 once a day - Edel Norris amitriptyline 10 mg tablet completed 1 tablet once a day - Edel Norris NAPROXEN 500 MG ORAL TABLET completed take 1 tab dialy - Edel Norris glimepiride 2 mg tablet completed 2-4 once a day - Edel Norris FENOFIBRATE 160 MG ORAL TABLET completed take 1 tab daily - Brandy Ayon melatonin 3 mg tablet completed as needed - Michael Robison FEROSUL 325 (65 FE) MG ORAL TABLET completed one tab daily - Edel Norris cyanocobalamin (vitamin B-12) 5,000 mcg capsule active 1 every two weeks Edel Norris PreviDent 1.1% gel active twice a day Kathiastlarissa Arteaga oxybutynin chloride 5 mg tablet completed 1 tablet twice a day - Michael Robison NYSTATIN-TRIAMCIN OLONE CREAM completed as needed - Ethel Arteaga NAPRELAN 500 MG ORAL TABLET EXTENDED RELEASE 24 HOUR completed two tabs daily - Edel Norris dicyclomine 10 mg capsule active as needed Edel Norris gabapentin 300 mg capsule active 2-3 once a day Edel Norris [facility] NTS STEP 1 21 MG/24HR TRANSDERMAL PATCH 24 HOUR completed Local application of 1 patch daily. - Edel Norris NICOTINE STEP 3 7 MG/24HR TRANSDERMAL PATCH 24 HOUR completed apply daily - Deysi Reno MD ergocalciferol (vitamin D2) 1,250 mcg (50,000 unit) capsule active Take 1 Edel Norris MAGNESIUM OXIDE 400 MG ORAL TABLET completed Take One Once a Day. - Edel Norris HYDROCODONE-ACETA MINOPHEN 7.5-325 MG ORAL TABLET completed 1 tab every 12 hours - Edel Norris LORATADINE TABLET completed 10 mg once daily as needed - Ethel Arteaga omeprazole 20 mg capsule,delayed release(DR/EC) active 1 tablet once a day Devyn Kraus ALEVE 220 MG ORAL TABLET completed twice daily - Deysi Reno MD VITAMIN D (ERGOCALCIFEROL) 40527 UNIT ORAL CAPSULE completed once a week - Devyn Kraus TRAMADOL HCL TABLET completed 50 mg every 8 hours as needed - Edel Norris METHOCARBAMOL 500 MG ORAL TABLET completed one pill twice a day - Ethel Arteaga Pravachol 40 mg tablet completed 1 tablet once a day - Michael Robison METFORMIN HCL 1000 MG ORAL TABLET completed twice daily - Brandy Pringle GLIPIZIDE 10 MG ORAL TABLET completed take one pill twice a day - Janis Ackerman Levo-T 100 mcg tablet active 1 tablet once a day Deysi Reno MD SOCIAL HISTORY Date Observation Value Provider smoking/tobacco cess ation, patient education and counseling yes Michael Robison number of years as a smoker 39 a Michael Robison smoking history, tot al pack/day .5 packs a day Michael Robison cigarette use yes Michael Robison smoking status Current every day smoker R shiela Robison smoking/tobacco cess ation, patient education and counseling yes Michael Robison number of years as a smoker 39 a Michael Robison smoking history, tot al pack/day .5 packs a day Michael Robison cigarette use yes Michael Robison smoking status Current every day smoker R shiela Robison social history reviewed E&M revi ewed - no changes required Rocky Cruzri smoking history, tot al pack/day .5 packs a day Viry Massey cigarette use yes Viry Massey smoking status Current every day smoker F mike Massey smoking/tobacco cess ation, patient education and counseling yes Rocky Naikinari number of years as a smoker 39 a Rocky Rona smoking history, tot al pack/day 10 cig a daily Rocky Nakiinari cigarette use yes Rocky Marino i smoking status Current every day smoker Shad Rea social history reviewed E&M revi ewed - no changes required Rocky Cruzri social history E&M Marital Statu s: Peter mooreen: O ccupation: Smoking History: P atient currently smokes every day. Mihcael Betancourtmaral smoking history, tot al pack/day 10 cig a daily Sheron Novak cigarette use yes Sheron Novak smoking status Current every day smoker S chris Novak social history reviewed E&M revi ewed - no changes required Michael Robison social history E&M Marital Statu s: C pepe: O ccupation: Smoking History: P atient currently smokes every day. P atient has been counseled to quit. Deysi Reno MD social history reviewed E&M revi ewed - no changes required Deysi Reno MD smoking/tobacco cess ation, patient education and counseling yes Miracle Sam number of years as a smoker 39 a Miracle Vargas smoking history, tot al pack/day 1 Miracle Vargas cigarette use yes Miracle Vargas smoking status Current every day smoker A jovanny Vargas social history E&M Marital Statu s: Peter cantu: O ccupation: Smoking History: P atient currently smokes every day. P atient has been counseled to quit. Deysi Reno MD smoking/tobacco cess ation, patient education and counseling yes Lucy Solitario number of years as a smoker 40 a Lucy Solitario smoking history, tot al pack/day 1 Lucy Solitario cigarette use yes Lucy Solitario smoking status Current every day smoker Carolyn Jerez social history reviewed E&M revi ewed - no changes required Michael Robison social history E&M Marital Statu s: Peter cantu: O ccupation: Smoking History: P atient currently smokes every day. P atient has been counseled to quit. Michael Robison social history reviewed E&M revi ewed - no changes required Michael Robison smoking/tobacco cess ation, patient education and counseling yes Edelzackery Norris number of years as a smoker 39 a Edel Norris smoking history, tot al pack/day 1 Edel Johnathaner cigarette use yes Edel Crispin puente smoking status Current every day smoker K sydni Norris social history E&M Marital Statu s: Peter cantu: O ccupation: Smoking History: P atient currently smokes every day. P atient has been counseled to quit. Michael Robison social history reviewed E&M revi ewed - no changes required Michael Robison smoking/tobacco cess ation, patient education and counseling yes Nuha Hubbard number of years as a smoker 40 a Nuha Hubbard smoking history, tot al pack/day 1 Nuha Hubbard cigarette use yes Nuha Cabrera nd smoking status Current every day smoker Kellie Hubbard social history E&M Marital Statu s: Peter cantu: O ccupation: Smoking History: P atient currently smokes every day. P atient has been counseled to quit. Michael Robsion smoking/tobacco cess ation, patient education and counseling yes Nuha Hubbard number of years as a smoker 40 a Nuha Hubbard smoking history, tot al pack/day 1 Nuha Hubbard cigarette use yes Nuha Cabrera kenny smoking status Current every day smoker Kellie Hubbard social history reviewed E&M revi ewed - no changes required Deysi Reno MD social history reviewed E&M revi ewed - no changes required Michael Robison social history E&M Marital Statu s: Peter cantu: O ccupation: Smoking History: P atient currently smokes every day. P atient has been counseled to quit. Michael Robison social history reviewed E&M revi ewed - no changes required Michael Robison smoking/tobacco cess ation, patient education and counseling yes Carol [place] number of years as a smoker 40 a Carol Kvng smoking history, tot al pack/day 1 Carol Kvng cigarette use yes Carol [place] smoking status Current every day smoker C atherine Kvng social history reviewed E&M revi ewed - no changes required Moisés Garcia MD social history E&M Marital Statu s: C hildren: O ccupation: Smoking History: Fern prabhakar currently smokes every day. P aki has been counseled to quit. Moisés Garcia MD smoking/tobacco cess ation, patient education and counseling yes Carol [place] number of years as a smoker 40 a Carol [place] smoking history, tot al pack/day 1 Carol Kvng cigarette use yes Carol Kvng smoking status Current every day smoker C atherine [place] social history reviewed E&M revi ewed - no changes required Michael Robison social history E&M S moking History: Fern prabhakar currently smokes every day. P aki has been counseled to quit. Michael Robison smoking/tobacco cess ation, patient education and counseling yes Nuha Foxand number of years as a smoker 40 a Nuha Hubbard smoking history, tot al pack/day 1 Nuha Hubbard cigarette use yes Nuha Cabrera kenny smoking status Current every day smoker Kellie Hubbard smoking/tobacco cess ation, patient education and counseling yes Carol Calderon number of years as a smoker 40 a Carol Andersis smoking history, tot al pack/day 1 Carol [place] cigarette use yes Carol [place] smoking status Current every day smoker C arnulfo [place] social history reviewed E&M revi ewed - no changes required Michael Robison smoking/tobacco cess ation, patient education and counseling yes Nuha Foxand number of years as a smoker 40 a Nuha Hubbard smoking history, tot al pack/day 1 Nuha Hubbard cigarette use yes Nuha Foxjoyce cox smoking status Current every day smoker Kellie Hubbard social history reviewed E&M revi ewed - no changes required Michael Robison social history reviewed E&M revi ewed - no changes required Brandy Ayon smoking/tobacco cess ation, patient education and counseling yes Edel Norris number of years as a smoker 39 a Edel Norris smoking history, tot al pack/day 1 Edel Norris cigarette use yes Edel Roa elder smoking status Current every day smoker Wander Norris social history E&M S moking History: P atient currently smokes every day. P atient has been counseled to quit. Martell Rees social history reviewed E&M revi ewed - no changes required Martell Rees smoking/tobacco cess ation, patient education and counseling yes Ethel Hollidayue number of years as a smoker 39 a Kathiastlarissa Chandler smoking history, tot al pack/day 1 Chastity Chandler cigarette use yes Chastity Chandler smoking status Current every day smoker Peter Arteaga social history E&M S moking History: P atient currently smokes every day. P atient has been counseled to quit. Deysi Reno MD social history reviewed E&M revi ewed - no changes required Deysi Reno MD smoking/tobacco cess ation, patient education and counseling yes Edel Norris number of years as a smoker 39 a Edel Norris smoking history, tot al pack/day 1 Edel Manner cigarette use yes Edel puente smoking status Current every day smoker Wander Norris social history E&M S moking History: P atient currently smokes every day. P atient has been counseled to quit. Deysi Reno MD social history reviewed E&M revi ewed - no changes required Deysi Reno MD smoking/tobacco cess ation, patient education and counseling yes Brandy Block number of years as a smoker 39 a Brandy Yary smoking history, tot al pack/day 1 Brandy Block cigarette use yes Brandy Block smoking status Current every day [facility] social history E&M Smoking Histo ry: P atient currently smokes every day. P atient has been counseled to quit. Deysi Reno MD social history reviewed E&M revi ewed - no changes required Deysi Reno MD smoking/tobacco cess ation, patient education and counseling yes Janis Ackerman number of years as a smoker 39 a Janis Ackerman smoking history, tot al pack/day 1 Janis Ackerman cigarette use yes Janis Dotsoneulalia philip smoking status Current every day smoker C yaeljoyce Tyron social history E&M S moking History: P atient currently smokes every day. P atient has been counseled to quit. Deysi Reno MD social history reviewed E&M revi ewed - no changes required Deysi Reno MD smoking/tobacco cess ation, patient education and counseling yes Edelzackery Norris number of years as a smoker 40 a Edel Jr smoking history, tot al pack/day 1 Edel Jr cigarette use yes Edel Crispin puente smoking status Current every day smoker K sydni Jr social history reviewed E&M revi ewed - no changes required Deysi Reno MD social history E&M S moking History: P atient currently smokes every day. P atient has been counseled to quit. Deysi Reno MD smoking/tobacco cess ation, patient education and counseling yes Ethel Arteaga number of years as a smoker 39 a Ethel Arteaga smoking history, tot al pack/day 1 Urbanoity Chandler cigarette use yes Urbanoity Chandler smoking status Current every day smoker C tiffany Arteaga social history reviewed E&M revi ewed - no changes required Deysi Reno MD smoking/tobacco cess ation, patient education and counseling yes Edel Norris number of years as a smoker 40 a Edel Jr smoking history, tot al pack/day 1 Edelzackery Norris cigarette use yes Edel puente smoking status Current every day smoker Wander sydni Norris number of grandchildren Deysi Reno MD T andre Reno MD social history reviewed E&M revi ewed - no changes required Deysi Reno MD social history reviewed E&M revi ewed - no changes required Deysi Reno MD smoking/tobacco cess ation, patient education and counseling yes Lucy Sterling number of years as a smoker 40 a Lucy Sterling smoking history, tot al pack/day 1 Lucyjoyce Katz cigarette use yes Lucyjoyce Katz smoking status Current every day smoker L rachana Katz social history reviewed E&M revi ewed - no changes required Deysi Reno MD smoking/tobacco cess ation, patient education and counseling yes Edel Norris number of years as a smoker 40 a Edel Jr smoking history, tot al pack/day 1 Edel Norris cigarette use yes Edel puente smoking status Current every day smoker Wander Norris social history E&M S moking History: Fern prabhakar currently smokes every day. P aki has been counseled to quit. Deysi Reno MD social history reviewed E&M revi ewed - no changes required Deysi Reno MD smoking/tobacco cess ation, patient education and counseling yes DevynBernadine Princeenson number of years as a smoker 40 a Devyn Kraus smoking history, tot al pack/day 1 Devyn Kraus cigarette use yes Devyn joneson smoking status Current every day smoker M Siva Kraus social history reviewed E&M revi ewed - no changes required Deysi Reno MD number of years as a smoker 40 a Devyn Kraus smoking history, tot al pack/day 0.5 Devyn Kraus cigarette use yes Devyn joneson smoking status Current every day smoker M Siva Kraus social history reviewed E&M revi ewed - no changes required Deysi Reno MD number of years as a smoker 40 a Devyn Kraus smoking history, tot al pack/day 0.5 Devyn Princeenson cigarette use yes Devyn joneson smoking status Current every day smoker M Siva Kraus FAMILY HISTORY Family Member Condition Mother Family History Unkno wn Father Family History of Co ronary Artery Disease: Full Brother Family History of Co ronary Artery Disease: INSURANCE PROVIDERS Payer name Policy type / Coverage type [employer] party ID [place] [employer] Medicare [id number] [facility] Medicaid 3 [id number] ADVANCE DIRECTIVES Name Date DISCUSSED - NO DECISION MADE TREATMENT PLAN Date Name Performer [id number],S,T he patient is using CPAP on a regular basis. The patient has been benefiting from therapy and should continue use. Rocky Rea [id number],C, H er updated medication list for this problem includes: Pravastatin 40 Mg Tablet (Pravastatin) Fenofibrate 54 Mg Tablet (Fenofibrate) [facility] [id number],S, H er updated medication list for this problem includes: Losartan 50 Mg Tablet (Losartan) Glimepiride 2 Mg Tablet (Glimepiride) Metformin 500 Mg Tablet Extended Release 24 Hr (Metformin) ..... Take 1 tablet by mouth twice a day Farxiga 10 Mg Tablet (Dapagliflozin) [facility] [id number],S,will reduce l asix to as needed [facility] [id number],S,T he Patient was reencouraged to stop smoking. [facility] [id number],B, H er updated medication list for this problem includes: Dofetilide 250 Mcg Capsule (Dofetilide) ..... Take 1 capsule by mouth twice a day Diltiazem Hcl 90 Mg Tablet (Diltiazem hcl) ..... Take 1 tablet by mouth twice a day [facility] [id number],BRocky fe [id number],B, B P today: 104/60 P rior BP: 142/72 (05/31/2022) Labs Reviewed: C reat: 1.08 (01/29/2021) Her updated medication list for this problem includes: Diltiazem Hcl 90 Mg Tablet (Diltiazem hcl) ..... Take 1 tablet by mouth twice a day Furosemide 40 Mg Tablet (Furosemide) ..... Take 1 tablet by mouth every day [facility] [id number],S, H er updated medication list for this problem includes: Pravastatin 40 Mg Tablet (Pravastatin) Fenofibrate 54 Mg Tablet (Fenofibrate) [facility] [id number],S,D prudence is working well. AT/AF Shock: 0.0%. % Pacing: RA - 92.0% RV - 31.0%. switch to DDD and decrease rate to 70 Her updated medication list for this problem includes: Dofetilide 250 Mcg Capsule (Dofetilide) ..... Take 1 capsule by mouth twice a day Diltiazem 90 Mg Tablet (Diltiazem hcl) ..... Take 1 tablet by mouth twice a day Dofetilide 250 Mcg Capsule (Dofetilide) ..... Take 1 capsule by mouth twice a day Diltiazem 90 Mg Tablet (Diltiazem hcl) ..... Take 1 tablet by mouth twice a day Diltiazem Hcl 90 Mg Tablet (Diltiazem hcl) ..... Take 1 tablet by mouth twice a day Dofetilide 250 Mcg Capsule (Dofetilide) ..... Take 1 capsule by mouth twice a day Rocky Rea [id number],S, Michael Ahmedza i [id number],B, Michael Ahmedza i [id number],S, Michael Ahmedza i [id number],S, Michael Ahmedza i [id number],S, Michael Ahmedza i [id number],S, Michael medza i [id number],S, Michael medza i [id number],S, Deysi Reno MD [id number],B, Deysi Reno MD [id number],B, Deysi Reno MD [id number],S, Deysi Reno MD [id number],B, Deysi Reno MD [id number],S, Michael Lopesmedza i [id number],S, Michael Ahmedza i [id number],S, Michael Betancourt i [id number],S, Michael Betancourt i [id number],S, Michael Betancourt i [id number],C,S he continues to be in AFIB and is symptomatic, I discussed undergoing cardioversion, she was agreeable to proceed. Recommended she get EKG day prior. Michael Robison [id number],C,S evere apical thickening as well. I recommended evaluation by Dr Katz to further discuss treatment if necessary. Michael Robison [id number],C,No recurrence . Michael Robison [id number],C,On exertion, stable currently. Michael Robison [id number],C,B P is satisfactory. BP today: 121/75 P rior BP: 97/62 (10/22/2021) Labs Reviewed: C reat: 1.08 (01/29/2021) Michael Robison [id number],S, S he has persistent AFIB and has a hx of cardioversion in 02/2020. She was recently in the ER for symptomatic AFIB, she continues to have hospitalizations due to her AFIB with sxs of dizziness, sob and fatigue. 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 Take 1 tablet by mouth twice a day Her updated medication list for this problem includes: Diltiazem Hcl 90 Mg Tablet (Diltiazem hcl) ..... Take 1 tablet by mouth twice a day Wily Avitia MD [id number],C, T he following medications were removed from the medication list: Metoprolol Succinate 25 Mg Tablet Extended Release 24 Hr (Metoprolol succinate) ..... Take 1 tablet by mouth twice a day Her updated medication list for this problem includes: Tikosyn 250 Mcg Capsule (Dofetilide) ..... Take 1 capsule by mouth twice a day Diltiazem Hcl 90 Mg Tablet (Diltiazem hcl) ..... Take 1 tablet by mouth twice a day Wily Avitia MD [id number],C, Wily winslow MD [id number],C,T he Patient was encouraged to stop smoking by Dr. Sadi Galarza rders: 9 9204 MOD 45-59 min (CPT-15615) T obacco cessation counseling, 3-10minutes ([id number]) Wily Avitia MD [id number],Peter, Wily winslow MD [id number],C, B P today: 97/62 P rior BP: 80/67 (10/12/2021) Labs Reviewed: C reat: 1.08 (01/29/2021) Michael Robison [id number],S, Michael Betancourt i [id number],W,S he has persistent AFIB and has a hx of cardioversion in 02/2020. She was recently in the ER for symptomatic AFIB, she continues to have hospitalizations due to her AFIB with sxs of dizziness, sob and fatigue. Will plan on Tikosyn loading at 250 mg with EKG monitoring. She is slightly hypotensive, will start her on Midodrine 10 mg BID. Will also attempt to rate control with Diltiazem 90 mg and Magnesium 400 mg. EKG today shows AFIB. 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 Take 1 tablet by mouth twice a day Her updated medication list for this problem includes: Tikosyn 250 Mcg Capsule (Dofetilide) ..... Take 1 capsule by mouth twice a day Diltiazem Hcl 90 Mg Tablet (Diltiazem hcl) ..... Take 1 tablet by mouth twice a day Orders: E KG (CPT-33202) 9 9204 MOD 45-59 min (CPT-32449) Michael Ahmedzai [id number],W, Deysi Reno MD [id number],S, Michael Ahmedza i [id number],S, Michael Ahmedza i [id number],S, Michael Ahmedza i [id number],S, Michael Ahmedza i [id number],S, Michael Ahmedza i [id number],S, Michael Ahmedza i [id number],S, Michael Ahmedza i [id number],S, Michael Ahmedza i [id number],S, Michael Ahmedza i [id number],S, Michael Ahmedza i [id number],B, Michael Ahmedza i [id number],S, Michael Ahmedza i [id number],B, Michael Ahmedza i [id number],B, Michael Ahmedza i [id number],S, Michael Ahmedza i [id number],B, Michael Ahmedza i [id number],S, Michael Ahmedza i [id number],S, Moisés Reinoso taylor KHAN [id number],B, Moisés Reinoso taylor KHAN [id number],S, Moisés Reinoso taylor KHAN [id number],S, Moisés Reinoso taylor KHAN [id number],S, Moisés Reinosotaylor KHAN [id number],S, Moisés Reinoso taylor [place] [id number],S, Michael Ahmedza i [id number],S, Michael Ahmedza i [id number],S, Michael Ahmedza i [id number],S, Michael Ahmedza i [id number],S, Michael Ahmedza i [id number],S, Michael Ahmedza i [id number],W, Deysi Reno [place] [id number],S, Michael Ahmedza i [id number],S, Michael Ahmedza i [id number],S, Michael Ahmedza i [id number],S, Michael Ahmedza i [id number],B, Michael Ahmedza i [id number],S, Michael Ahmedza i [id number],S, Michael Ahmedza i [id number],S, Michael Ahmedza i [id number],S, Michael Ahmedza i [id number],S, Michael Ahmedza i [id number],S, Michael Betancourt i [id number],S, Michael Betancourt i [id number],S, Michael Betancourt i [id number],S, Michael Betancourt i Cardiology:,This vis it has been a part of the consistent, comprehensive, and ongoing management of the chronic medical condition(s) listed above for the patient. Her updated medication list for this problem includes: Diltiazem Hcl 90 Mg Tablet (Diltiazem hcl) ..... Take 1 tablet by mouth twice a day Dofetilide 250 Mcg Capsule (Dofetilide) ..... Take 1 capsule by mouth twice a day Deysi Reno MD Cardiology: H er updated medication list for this problem includes: Diltiazem Hcl 90 Mg Tablet (Diltiazem hcl) ..... Take 1 tablet by mouth twice a day Dofetilide 250 Mcg Capsule (Dofetilide) ..... Take 1 capsule by mouth twice a day [facility] H er updated medication list for this problem includes: Diltiazem Hcl 90 Mg Tablet (Diltiazem hcl) ..... Take 1 tablet by mouth twice a day [facility]: H er updated medication list for this problem includes: Diltiazem Hcl 90 Mg Tablet (Diltiazem hcl) ..... Take 1 tablet by mouth twice a day Furosemide 40 Mg Tablet (Furosemide) ..... Take 1 tablet by mouth as directed as needed Losartan 50 Mg Tablet (Losartan) [facility] Cardiology [facility] Cardiology [facility] Cardiology: H er updated medication list for this problem includes: Ozempic 2 Mg/dose (8 Mg/3 Ml) Pen Injector (Semaglutide) Farxiga 10 Mg Tablet (Dapagliflozin propanediol) ..... Take 1 tablet by mouth once a day Losartan 50 Mg Tablet (Losartan) Glimepiride 2 Mg Tablet (Glimepiride) Metformin 500 Mg Tablet Extended Release 24 Hr (Metformin) ..... Take 1 tablet by mouth twice a day Michael Robison Cardiology Michael danielle Cardiology [facility]: B P today: 106/64 P rior BP: 81/56 (11/29/2022) Labs Reviewed: C reat: 1.08 (01/29/2021) Her updated medication list for this problem includes: Diltiazem Hcl 90 Mg Tablet (Diltiazem hcl) ..... Take 1 tablet by mouth twice a day Furosemide 40 Mg Tablet (Furosemide) ..... Take 1 tablet by mouth as directed as needed Losartan 50 Mg Tablet (Losartan) [facility] Card[facility]:recent re mote check shows A T/AF Shock: 0.0% % Pacing: RA - 42.0% RV - 0.0% H er updated medication list for this problem includes: Diltiazem Hcl 90 Mg Tablet (Diltiazem hcl) ..... Take 1 tablet by mouth twice a day Dofetilide 250 Mcg Capsule (Dofetilide) ..... Take 1 capsule by mouth twice a day [facility]:due to brittney mbar spine fracture from fall at home. currently wearing brace and on muscle relaxers which she is benefitting from. [facility]: H er updated medication list for this problem includes: Farxiga 10 Mg Tablet (Dapagliflozin propanediol) ..... Take 1 tablet by mouth once a day Losartan 50 Mg Tablet (Losartan) Glimepiride 2 Mg Tablet (Glimepiride) Metformin 500 Mg Tablet Extended Release 24 Hr (Metformin) ..... Take 1 tablet by mouth twice a day [facility]:The patie nt is using CPAP on a regular basis. The patient has been benefiting from therapy and should continue use. [facility]:cardiac M RI that showed apical hypertrophy with an aneurysm, we plan on continuing to treat this medically. 01/2022 Michael Robison Cardiology- High com plexity:The patient is using CPAP on a regular basis. The patient has been benefiting from therapy and should continue use. Rocyk Rona Cardiology- High com plexity: H er updated medication list for this problem includes: Pravastatin 40 Mg Tablet (Pravastatin) Fenofibrate 54 Mg Tablet (Fenofibrate) [facility] High [facility]: H er updated medication list for this problem includes: Losartan 50 Mg Tablet (Losartan) Glimepiride 2 Mg Tablet (Glimepiride) Metformin 500 Mg Tablet Extended Release 24 Hr (Metformin) ..... Take 1 tablet by mouth twice a day Farxiga 10 Mg Tablet (Dapagliflozin) Rocky Rona Cardiology- High com plexity:will reduce lasix to as needed [facility]:Th e Patient was reencouraged to stop smoking. [facility]: H er updated medication list for this problem includes: Dofetilide 250 Mcg Capsule (Dofetilide) ..... Take 1 capsule by mouth twice a day Diltiazem Hcl 90 Mg Tablet (Diltiazem hcl) ..... Take 1 tablet by mouth twice a day Rocky Rona Electrophysiology Rocky Marino alicia Electrophysiology: B P today: 104/60 P rior BP: 142/72 (05/31/2022) Labs Reviewed: C reat: 1.08 (01/29/2021) Her updated medication list for this problem includes: Diltiazem Hcl 90 Mg Tablet (Diltiazem hcl) ..... Take 1 tablet by mouth twice a day Furosemide 40 Mg Tablet (Furosemide) ..... Take 1 tablet by mouth every day Rockyabraham Rea Electrophysiology: H er updated medication list for this problem includes: Pravastatin 40 Mg Tablet (Pravastatin) Fenofibrate 54 Mg Tablet (Fenofibrate) [facility]:Pringle is working well. AT/AF Shock: 0.0%. % Pacing: RA - 92.0% RV - 31.0%. switch to DDD and decrease rate to 70 Her updated medication list for this problem includes: Dofetilide 250 Mcg Capsule (Dofetilide) ..... Take 1 capsule by mouth twice a day Diltiazem 90 Mg Tablet (Diltiazem hcl) ..... Take 1 tablet by mouth twice a day Dofetilide 250 Mcg Capsule (Dofetilide) ..... Take 1 capsule by mouth twice a day Diltiazem 90 Mg Tablet (Diltiazem hcl) ..... Take 1 tablet by mouth twice a day Diltiazem Hcl 90 Mg Tablet (Diltiazem hcl) ..... Take 1 tablet by mouth twice a day Dofetilide 250 Mcg Capsule (Dofetilide) ..... Take 1 capsule by mouth twice a day Rocky Rea Cardiology Michael Ahmedzai Cardiology Michael Ahmedzai Cardiology Michael Ahmedzai Cardiology Michael Ahmedzai Cardiology Michael Ahmedzai Cardiology Michael Ahmedzai Cardiology Michael Ahmedzai Cardiology Deysi Reno MD Cardiology Deysi Reno MD Cardiology Deysi Reno MD Cardiology Deysi Reno MD Cardiology Deysi Reno MD Cardiology Michael Ahmedzai Cardiology Michael Ahmedzai Cardiology Michael Ahmedzai Cardiology Michael Ahmedzai Cardiology Michael Ahmedzai Electrophysiology:Cornel whitman continues to be in AFIB and is symptomatic, I discussed undergoing cardioversion, she was agreeable to proceed. Recommended she get EKG day prior. Michael Ahmedzai Electrophysiology:Se cristobal apical thickening as well. I recommended evaluation by Dr Katz to further discuss treatment if necessary. Michael Lopesdanielle Electrophysiology:No recurrence. Michael Sosabeba Electrophysiology:On exertion, s table currently. Michael Sosabeba Electrophysiology:BP is satisfactory. BP today: 121/75 P rior BP: 97/62 (10/22/2021) Labs Reviewed: C reat: 1.08 (01/29/2021) Michael Mariannedanielle Telehealth: S he has persistent AFIB and has a hx of cardioversion in 02/2020. She was recently in the ER for symptomatic AFIB, she continues to have hospitalizations due to her AFIB with sxs of dizziness, sob and fatigue. 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 Okay to laoad with TIKOPSYN as outp: T he following medications were removed from the medication list: Metoprolol Succinate 25 Mg Tablet Extended Release 24 Hr (Metoprolol succinate) ..... Take 1 tablet by mouth twice a day Her updated medication list for this problem includes: Diltiazem Hcl 90 Mg Tablet (Diltiazem hcl) ..... Take 1 tablet by mouth twice a day Wily Avitia MD Electrophysiology - HAS ICD. Okay to laoad with TIKOPSYN as outp: T he following medications were removed from the medication list: Metoprolol Succinate 25 Mg Tablet Extended Release 24 Hr (Metoprolol succinate) ..... Take 1 tablet by mouth twice a day Her updated medication list for this problem includes: Tikosyn 250 Mcg Capsule (Dofetilide) ..... Take 1 capsule by mouth twice a day Diltiazem Hcl 90 Mg Tablet (Diltiazem hcl) ..... Take 1 tablet by mouth twice a day Wily Avitia MD Electrophysiology - HAS ICD. Okay to laoad with TIKOPSYN as outp Wily Avitia MD Electrophysiology - HAS ICD. Okay to laoad with TIKOPSYN as outp:The Patient was encouraged to stop smoking by Dr. Avitia O rders: [phone] MOD 45-59 min (CPT-17564) T obacco cessation counseling, 3-10minutes ([id number]) Wily Avitia MD Electrophysiology - HAS ICD. Okay to laoad with TIKOPSYN as outp Wily Avitia MD Electrophysiology - HAS ICD. Okay to laoad with TIKOPSYN as outp: B P today: 97/62 P rior BP: 80/67 (10/12/2021) Labs Reviewed: C reat: 1.08 (01/29/2021) Michael Robison Electrophysiology - HAS ICD. Okay to laoad with TIKOPSYN as outp Michael Robison Electrophysiology - HAS ICD. Okay to laoad with TIKOPSYN as outp:She has persistent AFIB and has a hx of cardioversion in 02/2020. She was recently in the ER for symptomatic AFIB, she continues to have hospitalizations due to her AFIB with sxs of dizziness, sob and fatigue. Will plan on Tikosyn loading at 250 mg with EKG monitoring. She is slightly hypotensive, will start her on Midodrine 10 mg BID. Will also attempt to rate control with Diltiazem 90 mg and Magnesium 400 mg. EKG today shows AFIB. 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 Take 1 tablet by mouth twice a day Her updated medication list for this problem includes: Tikosyn 250 Mcg Capsule (Dofetilide) ..... Take 1 capsule by mouth twice a day Diltiazem Hcl 90 Mg Tablet (Diltiazem hcl) ..... Take 1 tablet by mouth twice a day Orders: E KG (CPT-45993) 9 [id number] MOD 45-59 min (CPT-22648) Wily Avitia MD Cardiology Deysi Reno MD Cardiology Michael Ahmedzai Cardiology Michael Ahmedzai Cardiology Michael Ahmedzai Cardiology Michael Ahmedzai Cardiology Michael Ahmedzai Cardiology Michael Ahmedzai Cardiology Michael Ahmedzai Cardiology Michael Ahmedzai Cardiology Michael Ahmedzai Cardiology Michael Ahmedzai Cardiology Michael Ahmedzai Cardiology Michael Ahmedzai Cardiology Michael Ahmedzai Cardiology Michael Ahmedzai Cardiology Michael Ahmedzai Cardiology Michael Ahmedzai Cardiology Michael Ahmedzai Cardiology Moisés Garcia MD Cardiology Moisés Garcia MD Cardiology Moisés Garcia MD Cardiology Moisés Garcia MD Cardiology Moisés Garcia MD Cardiology Moisés Garcia MD Cardiology Michael Ahmedzai Cardiology Michael Ahmedzai Cardiology Michael Ahmedzai Cardiology Michael Ahmedzai Cardiology Michael Ahmedzai Cardiology Michael Ahmedzai Cardiology Deysi Reno MD Cardiology Michael Ahmedzai Cardiology Michael Ahmedzai Cardiology Michael Ahmedzai Cardiology Michael Ahmedzai Cardiology Michael Ahmedzai Cardiology Michael Ahmedzai Cardiology Michael Ahmedzai Cardiology Michael Ahmedzai Cardiology Michael Ahmedzai Cardiology Michael Ahmedzai Cardiology Michael Ahmedzai Cardiology Michael Ahmedzai Cardiology Michael Ahmedzai Cardiology Michael Ahmedzai Cardiology Follow up Deysi beard MD Cardiology Follow up Deysi beard MD Cardiology Follow up Deysi beard MD Cardiology Follow up Deysi beard MD Cardiology Follow up Deysi beard MD Cardiology Follow up Deysi beard MD Cardiology Deysi Reno MD Cardiology Deysi Reno MD Cardiology Deysi Reno MD Cardiology Martell Rees Cardiology: B P today: 116/67 P rior BP: 142/80 (02/18/2020) Labs Reviewed: Peter reat: 0.88 (12/13/2017) Her updated medication list for this problem includes: Metoprolol Succinate Er 25 Mg Oral Tablet Extended Release 24 Hour (Metoprolol succinate) ..... Two tablets per day in the evening Lisinopril 10 Mg Oral Tablet (Lisinopril) ..... One tab. daily Martell Rees Cardiology:in SR Martell eRes Cardiology Follow up Deysi beard MD Cardiology Follow up Deysi beard MD Cardiology Follow up Deysi beard MD Cardiology Follow up Deysi beard MD Cardiology Follow up Deysi beard MD Cardiology 6 month f/up , need l abs from pcp Deysi Reno MD Cardiology 6 month f/up , need l abs from pcp Deysi Reno MD Cardiology 6 month f/up , need l abs from pcp Deysi Reno MD Cardiology 6 month f/up , need l abs from pcp Deysi Reno MD Cardiology 6 month f/up , need l abs from pcp Deysi Reno MD Cardiology 6 month f/up , need l abs from pcp Deysi Reno MD Cardiology follow up Deysi beard MD Cardiology follow up Deysi beard MD Cardiology follow up :Orders: V enous Doppler Bilateral LE - Reflux (CPT-[id number]) Deysi Reno MD Cardiology follow up :Orders: H EMOGLOBIN A1c (496) Deysi Reno MD Cardiology follow up :Episode of confusion lasted a whole day, associated with intermittent double vision. Advised pt to go to the ER if this occurs again. Deysi Reno MD Cardiology Hospital Follow up To oskar Reno MD Cardiology Hospital Follow up To oskar Reno MD Cardiology Hospital Follow up : B P today: 140/70 P rior BP: 126/62 (01/01/2018) Labs Reviewed: C reat: 0.88 (12/13/2017) Deysi Reno MD Cardiology Hospital Follow up :The Patient was reencouraged to stop smoking. Deysi Reno MD Cardiology Deysi Reno MD Cardiology Deysi Reno MD Cardiology Deysi Reno MD Cardiology Deysi Reno MD Cardiology:Patient c ontinues to have persistent CP. Her recent echo showed apical hypokinesis which is new. Will schedule for cardiac catheterization. Deysi Reno MD Cardiology Follow up Deysi beard MD Cardiology Follow up Deysi beard MD Cardiology Follow up Deysi beard MD Cardiology Follow up :Is currently trying to quit. Still smoking. Deysi Reno MD Cardiology Follow up :Two weeks ago she had a sudden episode of sob after driving to [place], where she feels she does not inspire properly. Associated edema, which has been constant for the last few weeks. Associated lower, right chest pain. C T scan with contrast Deysi Reno MD Cardiology Follow up :C/o edema, which has been constant for the last few weeks. Edema is worse in the mornings. V enous doppler b/l to r/o PE Deysi Reno MD Cardiology:Counseled to quit. Nicotine patch prescribed. Deysi Reno MD Cardiology Deysi Reno MD Cardiology: P rior BP: 120/64 (07/12/2016) Deysi Reno MD Cardiology:No recurrence. Stress test normal 08/2016 Deysi Reno MD Cardiology follow up Deysi Sing chirag KHAN Cardiology follow up Danieliya Sing h Cardiology follow up Danieliya Sing h Cardiology follow up Toniya Sing h Cardiology follow up Toniya Sing h Cardiology Follow up Toniya Sing h Cardiology Follow up Toniya Sing chirag KHAN Cardiology Follow up Toniya Sing h Cardiology Follow up Toniya Sing h Cardiology Follow up Toniya Sing h Cardiology Deysi Reno MD Cardiology Deysi Reno MD Cardiology Deysi Reno MD Cardiology Deysi Reno MD Cardiology Deysi Reno MD fu Deysi Reno MD fu Deysi Reno MD fu Deysi Reno MD fu:nl echo and stress test and c arotid doppler Deysi Reno MD fu Deysi Reno MD NEW: H er updated medication list for this problem includes: Pravachol 40 Mg Tabs (Pravastatin sodium) ..... One tab. daily Deysi Reno MD NEW: H er updated medication list for this problem includes: Metformin Hcl 1000 Mg Tabs (Metformin hcl) ..... Once daily Glipizide 10 Mg Tabs (Glipizide) ..... Twice daily Lisinopril 10 Mg Tabs (Lisinopril) ..... One tab. daily Deysi Reno MD NEW: H er updated medication list for this problem includes: Lisinopril 10 Mg Tabs (Lisinopril) ..... One tab. daily Deysi Reno MD NEW: H er updated medication list for this problem includes: Lisinopril 10 Mg Tabs (Lisinopril) ..... One tab. daily Deysi Reno MD Date Name Complete Echo MAGNESIUM BASIC METABOLIC PANE L W/EGFR MRI, Chest PROTHROMBIN TIME WIT H INR Cardioversion - Othe r TSH, free T4, total T3 MAGNESIUM COMPREHENSIVE METABO LIC PANEL, W/EGFR Kidney Ultrasound Stress Regadenoson Complete Echo X-Ray, Chest - Routi ne PARTIAL THROMBOPLAST IN TIME, ACTIVATED URINALYSIS, COMPLETE W/REFLEX TO CULTURE COMPREHENSIVE METABO LIC PANEL W/EGFR PROTHROMBIN TIME WIT H INR CBC (INCLUDES DIFF/P LT) AICD Implant - [facility] CT Abdomen/pelvis wi th contrast CT Angio Coronaries Cardiac Cath - Left - [facility] Carotid Duplex Bilat eral Complete Echo Complete Echo Carotid Duplex Bilat eral Monitor - Telemetry (Mobile Cardiac) JOSE CARLOS/CV - [facility] HEMOGLOBIN A1c Venous Doppler Bilat eral LE - Reflux Cardiac Cath - Left - GC Creatinine, Serum Venous Doppler Bilat eral LE CT Chest with contra st DLCO Order - [id number] [facility] Order - [id number] [facility] Order - [id number] HISTORY OF PROCEDURES Procedure Date Procedure Name Provider Procedure Notes S tatus Complex e/m visit add on Deysi Reno MD completed EKG Wily ng MD completed EKG Wily ng MD completed EKG Kamran Niño MD completed EKG Anastacia Dunbar MD complet ed EKG Wily ng MD completed EKG Wily ng MD completed EKG Deysi Reno MD completed EKG Deysi Reno MD completed EKG Moisés Garcia MD complete d Mobile Cardiac Telem etry - Tech Deysi Reno MD completed Mobile Cardiac Telem etry - Prof Deysi Reno MD completed Holter, 24 or 48 Deysi Reno MD com pleted Holter, 24 or 48 Deysi Reno MD com pleted Holter, 24 or 48 Deysi Reno MD com pleted Holter, 24 or 48 Deysi Reno MD com pleted Holter, 24 or 48 Deysi Reno MD com pleted EKG Deysi Reno MD completed Schedule Followup Deysi Reno MD s/p cath co mpleted EKG Deysi Reno MD completed ePrescribe - Check t his box if eRx is used Deysi Reno MD completed Regadenoson, 4 units Deysi Reno MD completed Cardiolite, 2 units Deysi Reno MD completed SPECT Images Anastacia Dunbar MD compl eted Stress EKG Lopez Franz MD completed SNOMED-CT: 030911387 Smoking Cessation Counseling Deysi Reon MD completed SNOMED-CT: 93243472 Physical Exam, Performed: Pulse Exam of Foot Deysi Reno MD completed SNOMED-CT: [id number] Current Medications Documented Deysi Reno MD completed SNOMED-CT: [id number] Physical Exam, Performed: Pulse Exam of Foot Deysi Reno MD completed SNOMED-CT: [id number] Current Medications Documented Deysi Reno MD completed SNOMED-CT: 271786249 Smoking Cessation Counseling Deysi Reno MD completed SNOMED-CT: 63268212 Physical Exam, Performed: Pulse Exam of Foot Deysi Reno MD completed SNOMED-CT: [id number] Current Medications Documented Deysi Reno MD completed EKG Deysi Reno MD completed
--- OUTSIDE RECORDS SUMMARY | 2024-05-08 10:09 | XMS_ITS | Encounter Summary ---
Author Organization [facility] Address [facility] [place] [address] Care Team Providers Care Shell Press Operator Name Role Phone Moshe Zambrano MD Primary Care Provider [phone] Reason for Visit * Auth/Cert (Routine) Specialty Diagnoses / Procedures Referred By Contac t Referred To Contact Diagnoses LUMBAR COMPRESSION FRACTURE WITH NONUNION S32.000K Procedures LUMBAR SPINE FUSN,POST TECH INSERT VERT FIX DEV,POST,3-6 SGMTS THORAX SPINE FUSN,POST TECH STEROTACTIC COMPUTER ASSISTED SPINAL SPINE FUSN,POST TECH,EA ADDNL SGMT SPINE FUSN,POST TECH,EA ADDNL SGMT THORACIC 11-12, THORACIC 12- LUMBAR 1, LUMBAR 1-2, LUMBAR 2-3 POSTEROLATERAL FUSION Karyn Stein MD [address] [address] Phone: tel: fax: Referral ID Status Reason Start Date Expiration Date Visits Re quested Visits Authorized [id number] 1 1 Encounter Details Date Type Department Care Team (Late st Contact Info) Description 03/07/2024 Hospital Encounter [facility] [place], [place] [phone] Karyn Stein MD [address] [address] Social History Tobacco Use Types Packs/Day Years Used Date Smoking Tobacco: Former Cigarettes 1 59.9 S tarted: 1966 Smokeless Tobacco: Never Alcohol Use Standard Drinks/Week Comments Not Currently 0 (1 standard drink = 0.6 oz pur e alcohol) rare Comments No Sex and Gender Information Value Date Recorded Sex Assigned at Not on file Legal Sex Female 7:14 PM CDT Gender Identity Not on file Sexual Orientation Not on file documented as of this encounter Last Filed Vital Signs Vital Sign Reading Time Taken Comments Blood Pressure - - Pulse - - Temperature - - Respiratory Rate - - Oxygen Saturation - - Inhaled Oxygen Concentration - - Weight 69.4 kg (153 lb) 02/26/2024 2:16 PM INTERNET MARKETING COORDINATOR Height 152.4 cm (5') 02/26/2024 2:16 PM INTERNET MARKETING COORDINATOR Body Mass Index 29.88 02/26/2024 2:16 PM INTERNET MARKETING COORDINATOR documented in this encounter OR Notes * OR PreOp - Brandy Hickman CNP - 02/27/2024 11:39 AM CST Surgery rescheduled 2/2 URI and UTI. Symptoms resolved, no new meds. No new CP/SOB. Cardiac clearance per Dr. Reno. Patient should hold Eliquis for 3 days prior to scheduled procedure, and should follow the anesthesiologists recommendations on how to hold Ozempic and Farxiga. Hepatology clearance per Dr. Roe - Her liver disease continues to stay compensated. In place spinal surgery is planned, from liver standpoint she will be a low risk for liver related morbidity and mortality. She currently does not need correction of coagulopathy related to liver disease. Please request recent device interrogation. Addendum 02/29/24 Device interrogation 02/02/24 Biotronik Battery status 80% RNET MARKETING COORDINATOR RNET MARKETING COORDINATOR RNET MARKETING COORDINATOR * OR PreOp - Richelle Odonnell RN - 02/26/2024 2:13 PM CST Patient rescheduled due to UTI and URI. Both treated and resolved. Patient has no new meds or health hx, no new chest pain or SOB, verbalized understanding of all preop instructions. RNET MARKETING COORDINATOR * OR PreOp - Richelle Odonnell RN - 01/10/2024 9:26 AM CST Informed Danni at Dr. Stein' [place] office that patient needs to be rescheduled due to URI and just starting abx for the next 10 days. Informed her also of patient's abnormal UA and labs, faxed results to their office and received telephone order for urine culture. All abnormal lab results faxed to Dr. Zambrano and requested he address, especially UA/culture results. RNET MARKETING COORDINATOR RNET MARKETING COORDINATOR documented in this encounter Plan of Treatment Not on file documented as of this encounter Procedures Procedure Name Priority Date/Time Associated Diagnosis Comments URINE BACTERIA CULTURE Routine 01/09/2024 3:33 PM INTERNET MARKETING COORDINATOR Lumbar compression fracture ([facility]) Abnormal urine findings documented in this encounter Results * (ABNORMAL) URINE BACTERIA CULTURE (01/09/2024 3:33 PM INTERNET MARKETING COORDINATOR) SPEC DESCRIPTION URINE CLEAN CATCH 01/10/2024 9:35 AM INTERNET MARKETING COORDINATOR [facility] SPECIAL REQUESTS NO SPECIAL REQUEST 01/10/2024 9:35 AM INTERNET MARKETING COORDINATOR [facility] CULTURE RESULT 50,000-100,000 COL/ML ESCHERICHIA COLI (A) 01/12/2024 7:13 AM INTERNET MARKETING COORDINATOR [facility] CULTURE RESULT 1,000-9,000 COL/ML STREPTOCOCCI, BETA HEMOLYTIC GROUP B SUSCEPTIBILTY NOT ROUTINELY PERFORMED. SAVING ISOLATE FOR 5 DAYS. CONTACT MICROBIOLOGY DEPARTMENT IF FURTHER WORKUP IS INDICATED. (A) 01/12/2024 7:13 AM INTERNET MARKETING COORDINATOR [facility] URINE SPECIMEN OBTAINED BY CLEAN CATCH PROCEDURE / Unknown 01/09/2024 3:33 PM INTERNET MARKETING COORDINATOR 01/10/2024 9:43 AM INTERNET MARKETING COORDINATOR Narrative Organism Antibiotic Method Susceptibility Escherichia coli AMPICILLIN STEVEN (VITEK) >=32: Resistant Escherichia coli AMPICILLIN/SULBACTAM STEVEN (VITEK) >=32: Resistant Escherichia coli CEFTRIAXONE STEVEN (VITEK) <=1: Sensitive Escherichia coli CEFTAZIDIME STEVEN (VITEK) <=1: Sensitive Escherichia coli CEFAZOLIN STEVEN (VITEK) 8: Sensitive Escherichia coli ESBL STEVEN (VITEK) NEG: Sensitive Escherichia coli NITROFURANTOIN STEVEN (VITEK) <=16: Sensitive Escherichia coli GENTAMICIN STEVEN (VITEK) >=16: Resistant Escherichia coli LEVOFLOXACIN STEVEN (VITEK) <=0.12: Sensitive Escherichia coli PIPRACIL/TAZO STEVEN (VITEK) 64: Intermediate Comment:INTERMEDIATE Escherichia coli TRIMETH-SULFAMETH. STEVEN (VITEK) >=320: Resistant Escherichia coli TOBRAMYCIN STEVEN (VITEK) 4: Sensitive Karyn Stein MD MICROBIOLOGY - GENERAL ORDERA BLES Final Result [facility] [address] [place] [address], documented in this encounter Visit Diagnoses Diagnosis Lumbar compression fracture (CMS/HCC HHS/HCC) Closed fracture of lumbar vertebra without mention of spinal cord injury Abnormal urine findings Other nonspecific finding on examination of urine documented in this encounter Care Teams Shell Press Operator Relationship Specialty Start Date End Date Moshe Zambrano MD [address] [place] [address] [address] [place] [address] PCP - General INTERNAL MEDICINE 01/09/24 Deysi Reno Physician CARDIOLOGY 02/06/23 David Reno Physician NEPHROLOGY 02/06/23 documented as of this encounter
--- OUTSIDE RECORDS SUMMARY | 2024-05-08 10:09 | XMS_ITS | Clinical Summary ---
Author Organization [facility] Address [address] [place] [address] Phone Care Team Providers Care Window Maker Name Role Phone Unavailable Primary Care Provider Unavailabl e Medications denosumab (Prolia) 60 mg/mL Syringe Inject one syringe (60 mg) under the skin every 6 months. 1 mL 1 08/11/2021 4:39 PM CDT 02/02/2021 Active denosumab (Prolia) 60 mg/mL Syringe Inject one syringe (60 mg) under the skin every 6 months. 1 mL 1 08/03/2022 10:32 AM CDT 01/10/2022 Active Social History Tobacco Use Types Packs/Day Years Used Date Smoking Tobacco: Never Assessed Comments Unknown Sex and Gender Information Value Date Recorded Sex Assigned at Not on file Legal Sex Female 8:04 AM CDT Gender Identity Not on file Sexual Orientation Not on file Plan of Treatment Health Maintenance Due Date Last Done Comments DTAP/TDAP/TD VACCINES (1 - Tdap) 1973 BREAST CANCER SCREENING 1994 COLORECTAL SCREENING 12/15/1999 Colorectal Cancer Screening 12/15/1999 FIT-DNA Q 3 years 12/15/1999 FIT/FOBT Q 1 year 12/15/1999 Flex Sig/CT Colonography Q 5 years 12/15/1999 PNEUMOCOCCAL VACCINE 50+ YEARS (1 of 1 - PCV) 12/15/19 05 ZOSTER VACCINE (1 of 2) 2004 OSTEOPOROSIS SCREENING 12/15/2019 INFLUENZA VACCINE (#1) 2023 RSV VACCINE (60+ or ) (1 - 1-dose 75+ series) 2029 Insurance RX [employer] Medicare Part D RX [employer]
--- OUTSIDE RECORDS SUMMARY | 2024-05-08 10:09 | XMS_ITS | Clinical Summary ---
Author Organization [facility] Address [address] [facility] [place] [address] Care Team Providers Care Cup Trimming Machine Operator Name Role Phone Kady Singh MD Primary Care Provider [phone] Source Comments [facility],non-owned Affiliates and Associated Physician Practices is amultiple site organization consisting of ambulatory clinics and hospital sitesin [place], [place], [place] and [place]. This disclosure is being madepursuant to the Care Everywhere program and may not contain all information available regarding this patient. Last updated 17.[facility] Allergies Active Allergy Reactions Criticality Noted Date Comments Amoxicillin-Pot Clavulanate Anaphylaxis High 06/04/2018 Adalimumab Headache 05/23/2023 Meloxicam Nausea and/or Vomiting,Shortness of Breath,Swelling High 04/10/2017 Nsaids Other Low 11/16/2020 Kidney function Sulfasalazine Swelling,Cough,Vomit i ng High 04/18/2022 Swelling of face and hands, cough, vomiting. Medications * Be aware that medications may not be up to date on this document. Alwaysverify current medications with the patient. Medication Sig Dispensed Refills Start Date End Date Status blood glucose test strip Use 1 (one) strip as directed Active Lancets Thin MISC Use as directed Ac tive omeprazole (PRILOSEC) 20 MG capsule Take 1 (one) capsule by mouth daily before breakfast Active pravastatin (PRAVACHOL) 40 MG tablet Take 1 (one) tablet by mouth at bedtime Active glimepiride (AMARYL) 2 MG tablet Take 1 (one) tablet by mouth as needed Take 1-2 depending on blood sugar level 08/13/2018 Active allopurinol (ZYLOPRIM) 100 MG tablet Take 1 (one) tablet by mouth once daily Active apixaban (ELIQUIS) 5 MG tablet Take 1 (one) tablet by mouth 2 times daily Active dapagliflozin propanediol (FARXIGA) 10 MG tablet Take 1 (one) tablet by mouth every morning Active Glucagon (GVOKE PFS) 1 MG/0.2ML SOSY Inject 1 mg subcutaneously as directed Takes as needed Active traMADol (ULTRAM) 50 MG tablet Take 1 (one) tablet by mouth every 6 hours as needed for Pain Active fenofibrate (LOFIBRA) 54 MG tablet Take 1 (one) tablet by mouth every morning 03/20/2021 Active PROLIA 60 MG/ML SC injection Inject 1 mL subcutaneously Every 180 days 02/09/2021 Active cyanocobalamin (VITAMIN B-12) injection Inject 1,000 (one thousand) mcg into muscle every 7 days Active liothyronine (CYTOMEL) 5 MCG tablet Take 1 (one) tablet by mouth once daily Active gabapentin (NEURONTIN) 300 MG capsuleIndication s:PLMD (periodic limb movement disorder) TAKE 2 CAPSULES BY MOUTH AT BEDTIME 180 capsule 3 07/22/2021 Active Additional Information Patient taking differently: 600 mg Oral AT BEDTIME, Takes 2-3 capsules, Reported on 10/16/2023 melatonin 10 MG tablet Take 10 (ten) mg by mouth at bedtime Active Vitamin D, Ergocalciferol, 72675 units CAPS Take by mouth every 7 days Active calcitriol (Rocaltrol) 0.25 MCG capsule Take 1 (one) capsule by mouth once daily Active dilTIAZem (Cardizem) 90 MG tablet Take 1 (one) tablet by mouth 2 times daily Active dofetilide (Tikosyn) 250 MCG capsule Take 1 (one) capsule by mouth 2 times daily Active acetaminophen (Tylenol) 500 MG tablet Take 1 (one) tablet by mouth 2 times daily Maximum allowable Acetaminophen amount = 4 Grams (4000 mg) / 24 hours. Active losartan (Cozaar) 50 MG tablet Take 1 (one) tablet by mouth once daily Active furosemide (Lasix) 40 MG tablet Take 1 (one) tablet by mouth once daily Takes as needed 06/16/2022 Active levothyroxine (Euthyrox) 100 MCG tablet Take 1 (one) tablet by mouth every morning Active Semaglutide(0.25 or 0.5MG/DOS) 2 MG/3ML Solution Pen-injector Inject 2 mg subcutaneously every 7 days 08/16/2022 Active METAMUCIL FIBER PO Take by mouth 3 times daily Active triamcinolone acetonide (Kenalog) 0.1 % ointmentIndicatio ns:Other eczema Apply to affected areas BID PRN. 30 day supply 454 g 5 05/23/2023 Active cyclobenzaprine (Flexeril) 5 MG tablet Take 1 (one) tablet by mouth 3 times daily as needed Only taking at bedtime - can't drive if she takes during the day Active Blood Glucose Monitoring Suppl (Accu-Chek Guide Me) w/Device KIT USE TO TEST BLOOD SUGAR 3 TIMES DAILY 09/26/2023 Active midodrine (Proamatine) 5 MG tablet Take 1 (one) tablet by mouth 2 times daily 08/28/2023 Active nicotine (Nicoderm CQ) 21 MG/24HR patch Apply 1 (one) patch to skin every 24 hours 06/30/2023 Active Nicotrol NS 10 MG/ML nasal spray [place] 1 (one) spray into each nostril 3 times daily as needed for Smoking Cessation Active Cosentyx 150 MG/ML prefilled syringe Inject 150 (one hundred fifty) mg subcutaneously every 28 days 09/20/2023 Active sodium picosulfate - magnesium oxide - anhydrous citric acid (Clenpiq) solution Take by mouth as directed 1 kit 12/13/2023 Active polyethylene glycol 3350 (Miralax) 17 GM/SCOOP powder Take a dose twice a day starting a week before your colonoscopy. Then, mix the remainder of the prep (14 doses) with 64oz clear liquids and drink 2 days before your colonoscopy 510 g 12/13/2023 Active bisacodyl EC (Dulcolax) 5 MG tablet Take 4 tablets orally at noon 2 days before your colonoscopy. Take 4 tablets orally at noon the day before your colonoscopy 8 tablet 12/13/2023 Active magnesium citrate solution Take at 5pm 2 nights before your colonoscopy 300 mL 12/13/2023 Active NA-K-MG sulfates (Suprep) 17.5-3.13-1.6 GM/177ML solution Drink 1 bottle of prep followed by 32oz clear liquids at 5pm the night before your colonoscopy. 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 Was bedding weekly in warm water with detergent. Reduce indoor humidity as much possible. Stored all food in sealed container, and do not store garbage and papers inside the home. Clean mold surfaces with dilute bleach solution if approve PCP. Consult professional senior tech manufacturing engineering to get way of cockroaches. Repair holes in douglass. Follow up in: three months with PCP Osteoarthrosis 12/24/2018 Overview (09/13/2019): Last Assessment & Plan: Condition: stable Sarah reports compliance with prescribed medications and denies side effects such as medication related stomach ulcers. Member reports/denies worsening morning stiffness that lasts less than 30 minutes; nocturnal pain, muscle weakness or locking of joints. Sarah demonstrates full range of motion in the affected joint. Sarah educated on weight reduction, increasing joint friendly low impact physical activity and maintaining a healthy weight. she was advised to discuss any issues with their PCP and keep all follow up appointments. Follow up in: three months with PCP Type 2 diabetes mellitus with peripheral neuropa thy 12/24/2018 Overview (09/13/2019): Last Assessment & Plan: Condition: stable Discussed glucose control targets. Educated on: Lifestyle changes, Nutrition, Foot care and Medication compliance. Discussed glucose control targets. The monofilament test was positive for diabetic neuropathy. Sarah sees a clerk of court regularly for foot care. Discussed regular foot care with her to prevent and identify any irregularities on the soles of the feet or on and between the toes. Sarah encouraged to utilize a mirror for better view of the soles of the feet if needed. Advised member to discuss with the PCP the services of a clerk of court. 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 GERD (gastroesophageal reflux disease) 8 History of concussion 05/09/2017 Morbid obesity 05/09/2017 Restless legs syndrome (RLS) 05/09/2017 Secondary hypertension 05/09/2017 Sleep choking syndrome 05/09/2017 Sleep paralysis 05/09/2017 Sleep related leg cramps 05/09/2017 Sleep talking 05/09/2017 Type 2 diabetes mellitus with hyperglycemia 04/2017 Osteoarthritis of lower back 04/10/2017 Chronic midline back pain 01/09/2017 Fatigue 01/09/2017 Polyarthralgia 01/09/2017 Immunizations Name Administration Dates Next Due KIKE BRIAN PRIMARY 18+YR 03/19/2020 FLU VACCINE QUAD IIV4 SPLIT 0.25 ML IM 09/22/2019,11/21/2018,10/30/2018,2017,11/11/2014 INFLUENZA VACCINE 11/05/2020,10/30/2018,11/08/19 18 INFLUENZA VACCINE, QUADR. (F LUZONE; FLULAVAL; FLUARIX; AFLURIA QUADRIVALENT; 6MO+), 0.5 ML (IIV4) 09/22/2019 PNEUMOCOCCAL PPSV23 02/12/2018,12/11/2017 Pneumococcal Pcv13 Conj 02/12/2020 TDAP (7yrs+) 12/11/2017 Family History Medical History Relation Name Comments CAD (Coronary Artery Disease) Father Lung Disease Mother Relation Name Status Comments Father Mother Social History Tobacco Use Types Packs/Day Years Used Date Smoking Tobacco: Every Day Cigarettes 0.3 56 Smokeless Tobacco: Never Tobacco Cessation:Ready to Q uit: Not Asked; Counseling Given: Not Answered Alcohol Use Standard Drinks/Week Comments No 0 (1 standard drink = 0.6 oz pur e alcohol) Sex and Gender Information Value Date Recorded Sex Assigned at Not on file Gender Identity Not on file Sexual Orientation Not on file Last Filed Vital Signs Vital Sign Reading Time Taken Comments Blood Pressure 112/53 12/21/2023 12:55 PM VACUUM EVAPORATION OPERATOR Pulse 71 12/21/2023 12:55 PM VACUUM EVAPORATION OPERATOR Temperature 36.4 C (97.6 F) 12/21/2023 12:41 PM VACUUM EVAPORATION OPERATOR Respiratory Rate 17 12/21/2023 12:55 PM VACUUM EVAPORATION OPERATOR Oxygen Saturation 97% 12/21/2023 12:55 PM VACUUM EVAPORATION OPERATOR Inhaled Oxygen Concentration - - Weight 67.9 kg (149 lb 9.6 oz) 12/21/2023 10:17 AM VACUUM EVAPORATION OPERATOR Height 152.4 cm (5') 12/21/2023 10:17 AM VACUUM EVAPORATION OPERATOR Body Mass Index 29.22 12/21/2023 10:17 AM VACUUM EVAPORATION OPERATOR Plan of Treatment Upcoming Encounters Date Type Department Care Team (Late st Contact Info) Description 05/27/2024 10:[address] [facility] [address] [place] [address] Wayne Vasquez MD [address] [place] [address] [address] [place] [address] 05/27/2024 11:30 AM CDT Office Visit [facility] - GI [address] [place] [address], [place] [phone] Wayne Vasquez MD [address] [place] [address] [address] [place] [address] 05/27/2024 1:20 PM CDT Office Visit [facility] - Dermatology [address] [facility], [place] [phone] Tiana Katz MD [address] [facility] [place] [phone] Health Maintenance Due Date Last Done Comments BONE DENSITY TESTING 1955 COLOGUARD (AGES 45-75) - COLON CA SCREENING 1955 CT COLONOGRAPHY - COLON CA SCREENING 1955 FIT - COLON CA SCREENING 1955 FLEX SIG - COLON CA SCREENING 1955 MAMMOGRAM 1955 MEDICARE AWV 12 MONTHS 1955 HEPATITIS C SCREENING 12/09/1972 ZOSTER VACCINE (1 of 2) 2004 HEPATITIS B VACCINE (1 of 3 - Risk 3-dose series) 2014 Respiratory Syncytial Virus (RSV) Vaccine Pt: or over 60 yrs (1 - Risk 60-74 years 1-dose series) 2014 DIABETES RETINOPATHY SCREENING 05/18/2018 DIABETES-FOOT EXAM WITH MONOFILAMENT 05/18/2018 DIABETES-HGB A1C 05/18/2018 COVID-19 VACCINE ( season) 2023 12/09/2022, 10/16/2021, 12/04/2020, Additional history exists DEPRESSION SCREENING 02/07/2024 DIABETES - URINE PROTEIN SCREENING 02/07/2024 DIABETES-SERUM CREATININE 06/06/20242023, 03/02/2023, 01/04/2023, Additional history exists PNEUMOCOCCAL VACCINE 50+ (3 of 3 - PCV20 or PCV21) 02/11/2025 02/12/2020, 02/12/2018, 12/11/2017 DTAP/TDAP/TD VACCINES (2 - Td or Tdap) 12/12/2027 12/11/2017 COLON MONITORING 12/20/2033 12/21/2023, , 05/11/2023, Additional history exists COLONOSCOPY - COLON CA SCREENING 12/20/2033 12/21/2023, 06/22/2023, 05/11/2023, Additional history exists Colorectal Cancer Screening 12/20/2033 INFLUENZA VACCINE Completed 11/07/2023, , 10/16/2021, Additional history exists HIB VACCINE Aged Out No longer eligi ble based on patient's age to complete this topic HPV VACCINE Aged Out No longer eligi ble based on patient's age to complete this topic MENINGOCOCCAL (Group B) VACCINE SHARED DECISION-MAKING Aged Out No longer eligible based on patient's age to complete this topic MENINGOCOCCAL GROUPS A/C/Y/W VACCINE Aged Out No longer eligible based on patient's age to complete this topic Goals Goal Patient Goal Type Associated Problems Recent Progress Patient-Stated? 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 ENDOSCOPY, COLON, SCREENING Routine 05/11/2023 12:49 PM CDT from Last 3 Months or Most Recently Relevant to Health Maintenance Results * (ABNORMAL) COMPREHENSIVE METABOLIC PANEL (06/07/2023 11:19 AM CDT) BUN 21 7 - 26 mg/dL 06/07/2023 12:12 PM CDT [facility] Creatinine 1.33(H) 0.56 - 0.96 mg/dL 06/07/2023 12:12 PM [facility] Sodium 136 136 - 145 mmol/L 06/07/2023 12:12 PM T [facility] Potassium 4.1 3.5 - 4.5 mmol/L 06/07/2023 12:12 PM [facility] Chloride 103 98 - 107 mmol/L 06/07/2023 12:12 PM [facility] CO2 23 22 - 29 mmol/L 06/07/2023 12:12 PM [facility] Glucose 73 70 - 115 mg/dL 06/07/2023 12:12 PM [facility] Calcium 10.0 8.4 - 10.2 mg/dL 06/07/2023 12:12 PM [facility] Protein Total 7.3 6.0 - 8.3 g/dL 06/07/2023 12:12 PM [facility] Albumin 3.8 3.4 - 5.0 g/dL 06/07/2023 12:12 PM [facility] Bilirubin Total 0.6 0.2 - 1.2 mg/dL 06/07/2023 12:12 PM [facility] Alkaline Phosphatase 64 40 - 150 U/L 06/07/2023 12:12 PM [facility] ALT 26 5 - 55 U/L 06/07/2023 12:12 PM [facility] AST 34 5 - 34 U/L 06/07/2023 12:12 PM [facility] Anion Gap 10 6 - 16 06/07/2023 12:12 PM [facility] BUN/Creatinine Ratio 16 7 - 23 06/07/2023 12:12 PM [facility] Osmolality Calculated 284 275 - 295 mOsm/kg 06/07/2023 12:12 PM [facility] Albumin/Globulin Ratio 1.1 1.1 - 2.3 06/07/2023 12:12 PM [facility] eGFR by CKD-EPI 44(L) >=90 mL/min/1.7 3 m2 06/07/2023 12:12 PM [facility] Blood BLOOD SPECIMEN / Unknown Lab Venipuncture / Unknown 06/07/2023 11:19 AM CDT 06/07/2023 11:44 AM [facility] Wayne Vasquez MD LAB - CHEMISTRY [facility]IA[facility] Organization Address City/State/ZIP Co de Phone Number [facility] [address] [place] [address], [facility] [phone] * ENDOSCOPY, COLON, SCREENING (05/11/2023 12:49 PM CDT) Report Endoscopy POC Endoscopy Department Report _ Patient Name: Sarah Starr Procedure Date: 05/11/2023 12:49 PM Date of : 1955 Classification: Outpatient Gender: Female Ethnicity: Not or Race: White _ Providers: Raquel Underwood MD, Nuha Burdick (Fellow) Referring MD: Kady Singh (Referring MD) Procedure: Colonoscopy Indications: Personal history of colonic polyps Medications: Monitored Anesthesia Care Description of Procedure: Pre-Anesthesia Assessment: - Prior to the procedure, a History and Physical was performed, and patient medications and allergies were reviewed. The patient's tolerance of previous anesthesia was also reviewed. The risks and benefits of the procedure and the sedation options and risks were discussed with the patient. All questions were answered, and informed consent was obtained. Prior Anticoagulants: The patient has taken Eliquis (apixaban), last dose was 3 days prior to procedure. ASA Grade Assessment: III - A patient with severe systemic disease. After reviewing the risks and benefits, the patient was deemed in satisfactory condition to undergo the procedure. After I obtained informed consent, the scope was passed under direct vision. Throughout the procedure, the patient's blood pressure, pulse, and oxygen saturations were monitored continuously. The Colonoscope was introduced through the anus and advanced to the cecum, identified by appendiceal orifice and ileocecal valve. The colonoscopy was performed with difficulty due to coughing and abdominal breathing during most of the procedure. The patient tolerated the procedure well. The quality of the bowel preparation was good. The ileocecal valve, appendiceal orifice, and rectum were photographed. Findings: Hemorrhoids were found on perianal exam. 3 1 mm residual polyp tissue was found in the ascending colon at a previous polypectomy site. The polyp was removed with a jumbo cold forceps. Resection and retrieval were complete. An 8 mm polyp was found in the descending colon. The polyp was flat. The polyp was removed with a cold snare. Resection and retrieval were complete. An 8 mm polyp was found in the descending colon. The polyp was sessile. The polyp was removed with a cold snare. Resection and retrieval were complete. A 6 mm polyp was found in the sigmoid colon. The polyp was sessile. The polyp was removed with a cold snare. Resection and retrieval were complete. A 30-40 mm polyp was found in the proximal transverse colon. The polyp was sessile. Polypectomy was not attempted due to polyp size. Area was tattooed with an injection of 0.5 mL of Yohana ink proximal (on same wall) and distal to the polyp (on opposite wall). A 20 mm polyp was found in the distal transverse colon. The polyp was sessile. Area was tattooed with an injection of 0.5 mL of Yohana ink proximal and distal to the polyp (both on same wall). A few small angioectasias without bleeding were found in the ascending colon. External and internal hemorrhoids were found during retroflexion. The hemorrhoids were medium-sized. Estimated Blood Loss: Estimated blood loss: none. Complications: No immediate complications. Impression: - Difficult colonoscopy due to coughing and abdominal breathing. - Hemorrhoids found on perianal exam. - One 3 mm polyp in the ascending colon, removed with a jumbo cold forceps. Resected and retrieved. - One 8 mm polyp in the descending colon, removed with a cold snare. Resected and retrieved. - One 8 mm polyp in the descending colon, removed with a cold snare. Resected and retrieved. - One 6 mm polyp in the sigmoid colon, removed with a cold snare. Resected and retrieved. - One ~30 mm polyp in the proximal transverse colon. Resection not attempted. Tattooed. - One ~20 mm polyp in the transverse colon. Resection not attempted. Tattooed. - A few non-bleeding colonic angioectasias. - External and internal hemorrhoids. Recommendation: - Patient has a contact number available for emergencies. The signs and symptoms of potential delayed complications were discussed with the patient. Return to normal activities tomorrow. Written discharge instructions were provided to the patient. - Resume previous diet. - Continue present medications. - Await pathology results. - Repeat colonoscopy at appointment to be scheduled with 2 day prep for resection of larger polyps by advanced endoscopy. Consider general anesthesia given difficulty during this procedure related to coughing and abdominal breathing. - Return to referring physician as previously scheduled. Attending Participation: I was present and participated during the entire procedure, including non-jones portions. Procedure Code(s): --- Professional --- 58832, Colonoscopy, flexible; with removal of tumor(s), polyp(s), or other lesion(s) by snare technique 53785, 59, Colonoscopy, flexible; with biopsy, single or multiple 38269, Colonoscopy, flexible; with directed submucosal injection(s), any substance Diagnosis Code(s): --- Professional --- K64.8, Other hemorrhoids D12.2, Benign neoplasm of ascending colon D12.4, Benign neoplasm of descending colon D12.5, Benign neoplasm of sigmoid colon D12.3, Benign neoplasm of transverse colon (hepatic flexure or splenic flexure) K55.20, Angiodysplasia of colon without hemorrhage Z86.010, Personal history of colonic polyps CPT copyright 2021 [employer]. All rights reserved. The codes documented in this report are preliminary and upon funeral pre arrangement counselor review may be revised to meet current compliance requirements. ____ Raquel Underwood MD 05/11/2023 1:58:18 PM Note Initiated On: 05/11/2023 12:49 PM Number of Addenda: 0 [facility] [address] [place] [id number] [place] [address] PROVATION 05/11/2023 12:4 9 PM CDT Raquel Underwood MD GI PROCEDURE ORDER [facility] from Last 3 Months or Most Recently Relevant to Health Maintenance Care Teams Cup Trimming Machine Operator Relationship Specialty Start Date End Date Kady Singh MD [address] [place] [phone] PCP - General Family Medicine 04/18/22
--- OUTSIDE RECORDS SUMMARY | 2024-05-08 10:09 | XMS_ITS | Clinical Summary ---
Author Organization [facility] Address [address] [place] [address] Care Team Providers Care Funeral Location Manager Name Role Phone Moshe Zambrano MD Primary Care Provider [phone] Allergies Active Allergy Reactions Criticality Noted Date Comments Amoxicillin-Pot Clavulanate Shortness of Breath,Vomiting,Cough High 01/09/2024 Meloxicam Shortness of Breath,Vomiting,Cough High 01/09/2024 Nsaids Other (see comment) 01/09/2024 Low GFR Sulfasalazine Shortness of Breath,Vomiting,Cough High 01/09/2024 Medications allopurinol (ZYLOPRIM) 100 MG tablet Take 1 tablet (100 mg total) by mouth nightly. Active calcitriol (ROCALTROL) 0.25 MCG capsule Take 1 capsule (0.25 mcg total) by mouth nightly at bedtime. Active Secukinumab, 300 MG Dose, 150 MG/ML Solution Auto-injector Inject 1 Dose into the skin every 30 (thirty) days. Due 01/24/24 Active vitamin B-12 (CYANOCOBALAMIN ) (CYANOCOBALAMIN ) 1000 mcg tablet Take 1 tablet (1,000 mcg total) by mouth daily. Active cyclobenzaprine (FLEXERIL) 5 MG tablet Take 1 tablet (5 mg total) by mouth 2 (two) times daily as needed for Muscle Spasms. Active dilTIAZem ER 90 MG 12 hr capsule Take 1 capsule (90 mg total) by mouth 2 (two) times daily. Active dofetilide (TIKOSYN) 250 MCG capsule Take 1 capsule (250 mcg total) by mouth 2 (two) times daily. Active apixaban (ELIQUIS) 5 MG tablet Take 1 tablet (5 mg total) by mouth 2 (two) times daily. Active levothyroxine (EUTHYROX) 100 MCG tablet Take 1 tablet (100 mcg total) by mouth every morning. Active dapagliflozin (FARXIGA) 10 MG tablet Take 1 tablet (10 mg total) by mouth daily. Active fenofibrate (TRICOR) 54 MG tablet Take 1 tablet (54 mg total) by mouth nightly at bedtime. Active furosemide (LASIX) 40 MG tablet Take 1 tablet (40 mg total) by mouth daily as needed (swelling). Active gabapentin (NEURONTIN) 600 MG tablet Take 1 tablet (600 mg total) by mouth nightly at bedtime. Active Glucagon (GVOKE KIT) 1 MG/0.2ML Solution Inject into the skin as needed. Active liothyronine (CYTOMEL) 5 MCG Tab Take 1 tablet (5 mcg total) by mouth daily. Active losartan (COZAAR) 50 MG tablet Take 1 tablet (50 mg total) by mouth daily. Active midodrine (PROAMATINE) 5 MG tablet Take 1 tablet (5 mg total) by mouth 2 (two) times a day. Active omeprazole (PRILOSEC) 20 MG capsule Take 1 capsule (20 mg total) by mouth daily. Active semaglutide (OZEMPIC) 2 mg/dose injection (PEN)Indication s:Diabetes Mellitus Inject 2 mg into the skin once a week. Indications: Diabetes Tuesdays Active pravastatin (PRAVACHOL) 40 MG tablet Take 1 tablet (40 mg total) by mouth nightly at bedtime. Active denosumab (PROLIA) 60 MG/ML injection Inject 1 mL (60 mg total) into the skin every 6 (six) months. Active traMADol (ULTRAM) 50 MG tablet Take 1 tablet (50 mg total) by mouth every 6 (six) hours as needed for Pain. Active triamcinolone (KENALOG) 0.1 % ointment Apply topically 2 (two) times daily. Active acetaminophen (TYLENOL) 500 MG tablet Take 1 tablet (500 mg total) by mouth every 6 (six) hours as needed for Pain. Active vitamin D2 (ERGOCALCIFEROL ) 200 mcg/mL Solution solution Take 625 mLs (125,000 mcg total) by mouth once a week. Wednesdays Active melatonin 5 MG tablet Take 2 tablets (10 mg total) by mouth nightly at bedtime. Active psyllium (METAMUCIL 4 IN 1 FIBER) 51.7 % packet Take 1 packet by mouth 3 (three) times daily. Active Multiple Vitamin (MULTIVITAMIN ADULT OR) Take 1 tablet by mouth daily. Active Encounters Date Type Department Care Team Description 03/07/2024 Hospital Encounter [facility] [place] [address] Karyn Stein MD 01/09/2024 11:59 PM GENERAL ENGINEER Anesthesia Event [facility] [place] [address] Ginger Ruano FNP from Last 3 Months Family History Medical History Relation Comments Diabetes Father Heart Disease Father Diabetes Mother Heart Disease Mother Relation Status Comments Father Mother Social History Tobacco Use Types Packs/Day Years Used Date Smoking Tobacco: Former Cigarettes 1 59.9 S tarted: 1966 Smokeless Tobacco: Never Tobacco Cessation:Counseling Given: Not Answered Alcohol Use Standard Drinks/Week Comments Not Currently 0 (1 standard drink = 0.6 oz pur e alcohol) rare Comments No Sex and Gender Information Value Date Recorded Sex Assigned at Not on file Legal Sex Female 7:14 PM CDT Gender Identity Not on file Sexual Orientation Not on file Last Filed Vital Signs Vital Sign Reading Time Taken Comments Blood Pressure 112/53 01/09/2024 2:23 PM GENERAL ENGINEER Pulse 80 01/09/2024 2:23 PM GENERAL ENGINEER Temperature - - Respiratory Rate 20 01/09/2024 2:23 PM GENERAL ENGINEER Oxygen Saturation 99% 01/09/2024 2:23 PM GENERAL ENGINEER Inhaled Oxygen Concentration - - Weight 69.4 kg (153 lb) 02/26/2024 2:16 PM GENERAL ENGINEER Height 152.4 cm (5') 02/26/2024 2:16 PM GENERAL ENGINEER Body Mass Index 29.88 02/26/2024 2:16 PM GENERAL ENGINEER Plan of Treatment Health Maintenance Due Date Last Done Comments Colorectal Cancer Screening Colonoscopy (10 Years) 1954 Hepatitis C 1972 Mammogram Screening 1994 Lung Cancer Screening 2004 Annual Medicare Wellness Visit 12/15/2019 Dexa Scan (General) 12/15/2019 COVID-19 Vaccine ( season) 2024 11/07/2023, 12/09/2022, 10/16/2021, Additional history exists DTaP, Tdap and Td Vaccines (2 - Td or Tdap) 12/12/2027 12/11/2017 Zoster Vaccines Completed 06/08/2021, 04/06/2021 Pneumococcal Vaccine: 65+ Years Completed 07/26/2022, 02/12/2020, 02/12/2018, Additional history exists RSV Immunization or 60+ Years Completed 11/03/2022 Influenza Adult Completed 11/07/2023, 10/08, 10/16/2021, Additional history exists Meningococcal B Vaccine Aged Out No l onger eligible based on patient's age to complete this topic Meningococcal Vaccine Aged Out No richard phyllis eligible based on patient's age to complete this topic RSV Immunizations Under 20 Months Aged Out No longer eligible based on patient's age to complete this topic Medical Devices Implanted Type Area Assembler Type Bar And Segment Device Identifier Shelf Expiration Date Model / Serial / Lot Icd-02/08/2021 Implanted:2021 (Quantity not on file) ICD BIOTRONIK Insurance MEDICARE MEDICAID Care Teams Funeral Location Manager Relationship Specialty Start Date End Date Moshe Zambrano MD [address] [facility] [address] [place] [address] PCP - General INTERNAL MEDICINE 01/09/24 Deysi Reno Physician CARDIOLOGY 02/06/23 David Reno Physician NEPHROLOGY 02/06/23
--- OUTSIDE RECORDS SUMMARY | 2024-05-08 10:09 | XMS_ITS | Clinical Summary ---
Author Organization [facility] Address [address] [place] [address] Care Team Providers Care Shank Scourer Name Role Phone Deysi Reno MD Unavailable Moshe Zambrano MD Primary Care Provider [phone] Allergies Active Allergy Reactions Criticality Noted Date Comments Adalimumab Headache Low 05/23/2023 Amoxicillin-Pot Clavulanate Anaphylaxis,Shortnes s of breath High 12/24/2018 Ibuprofen Other (See comments) Low 02/18/2020 Kidney function Meloxicam Nausea And Vomiting,Shortness of breath,Swelling,Anap hylaxis High 04/10/2017 Sulfadiazine Other (See comments) Low 12/23/2022 Sulfasalazine Cough,Swelling,Vomit ing High 04/18/2022 Swelling of face and hands, cough, vomiting. Medications gabapentin (NEURONTIN) 300 mg capsuleIndicatio ns:Restless Legs Syndrome Take 1 capsule (300 mg total) by mouth daily Active hyoscyamine (LEVSIN) 0.125 mg tabletIndication s:Urinary Incontinence Take 0.125 mg by mouth every 4 (four) hours as needed for diarrhea. Active magnesium oxide (MAG-OX) 400 mg (241.3 mg elemental magnesium) tabletIndication s:hypomagnesemia Take 400 mg by mouth daily. Active methocarbamol (ROBAXIN) 500 mg tabletIndication s:Muscle Spasm Take 500 mg by mouth 4 (four) times a day. Active naproxen (NAPROSYN) 500 mg tabletIndication s:Anti-inflammat ory Take 500 mg by mouth 2 (two) times a day with meals. Active omeprazole (PriLOSEC) 20 mg capsule Take 1 capsule (20 mg total) by mouth daily Active pravastatin (PRAVACHOL) 40 mg tabletIndication s:hyperlipidemia Take 1 tablet (40 mg total) by mouth daily Active iron bisgly,ps-FA-B-C #12-succ 65 mg-65 mg -1,000 mcg (24) tabletIndication s:Iron Deficiency Anemia Take 65 mg by mouth daily. Active allopurinoL (ZYLOPRIM) 100 mg tablet Take 1 tablet (100 mg total) by mouth daily 06/16/19 21 Active Ozempic 1 mg/dose (4 mg/3 mL) pen injector injection INJECT 1 MG (0.75 ML) SUBCUTANEOUSLY WEEKLY Active amitriptyline (ELAVIL) 10 mg tablet Take 1 tablet (10 mg total) by mouth nightly 05/28/19 20 Active Eliquis 5 mg tablet Take 1 tablet (5 mg total) by mouth 2 (two) times a day 02/26/19 21 Active bisacodyl EC (Gentle Laxative, bisacodyl,) 5 mg EC tablet Take all 4 tabs 1 hour prior to starting Miralax. 08/06/19 23 Active Accu-Chek Guide test strips strip TEST FASTING SUGARS DAILY IN MORNING 11/12/19 23 Active calcitRIOL (ROCALTROL) 0.25 mcg capsule Take 1 tablet by mouth daily 02/06/18 70 Active cholecalciferol (VITAMIN D-3) 5,000 unit tablet Take 1 tablet (5,000 Units total) by mouth Active cyanocobalamin, vitamin B-12, 5,000 mcg capsule cyanocobalamin (vitamin B-12) 5,000 mcg capsule 01/02/20 18 Active Farxiga 10 mg tablet Take 1 tablet (10 mg total) by mouth every morning 02/06/18 70 Active denosumab (Prolia) 60 mg/mL syringe Inject one syringe (60 mg) under the skin every 6 months. 02/17/19 21 Active dicyclomine (BENTYL) 10 mg capsule TAKE 1 CAPSULE BY MOUTH FOUR TIMES DAILY NEEDED 01/02/20 18 Active dilTIAZem (CARDIZEM) 90 mg tablet Take 1 tablet (90 mg total) by mouth 2 (two) times a day 10/23/19 22 Active dofetilide (TIKOSYN) 250 mcg capsule Take 1 capsule (250 mcg total) by mouth 2 (two) times a day 10/26/19 22 Active ergocalciferol (VITAMIN D) 50,000 unit capsule TAKE 1 CAPSULE BY MOUTH ONE TIME PER WEEK FOR 90 DAYS 01/11/20 16 Active EnbreL SureClick 50 mg/mL (1 mL) pen injector 08/19/19 23 Active fenofibrate (TRICOR) 54 mg tablet Take 1 tablet (54 mg total) by mouth every morning 02/06/18 70 Active fluoride, sodium, (Denta 5000 Plus) 1.1 % cream as needed 11/03/19 18 Active furosemide (LASIX) 40 mg tablet Take 1 tablet (40 mg total) by mouth daily Active glimepiride (AMARYL) 2 mg tablet TAKE 2 TABLETS BY MOUTH TWICE A DAY BEFORE MEALS 02/06/18 70 Active Gvoke HypoPen 1-Pack 1 mg/0.2 mL auto-injector USE TO INJECT 1MG NEEDED UNDER THE SKIN FOR 1 DAY DIRECTED Active ketoconazole (NIZORAL) 2 % cream APPLY TWICE DAILY UNDER BREASTS. 12/04/19 20 Active Linzess 145 mcg capsule TAKE 1 CAPSULE BY MOUTH DAILY ON EMPTY STOMACH AT LEAST 30 MINUTES PRIOR TO FIRST MEAL OF THE DAY 08/06/19 23 Active liothyronine (CYTOMEL) 5 mcg tablet Take 1 tablet (5 mcg total) by mouth daily Active losartan (COZAAR) 50 mg tablet Take 1 tablet (50 mg total) by mouth daily 02/06/18 70 Active midodrine (PROAMATINE) 5 mg tablet Take 1 tablet (5 mg total) by mouth 2 (two) times a day 10/23/19 22 Active oxyBUTYnin (DITROPAN) 5 mg tablet Take 1 tablet (5 mg total) by mouth 2 (two) times a day 01/02/20 18 Active traMADoL (ULTRAM) 50 mg tablet TAKE 1-2 TABLETS WITH TYLENOL BY MOUTH THREE TIMES DAILY 03/15/19 17 Active Euthyrox 100 mcg tablet Take 1 tablet (100 mcg total) by mouth every morning 11/15/19 23 Active metFORMIN XR (GLUCOPHAGE XR) 500 mg 24 hr tablet Take 1 tablet (500 mg total) by mouth 09/30/19 23 Active acetaminophen (TYLENOL) 500 mg tablet Take 1 tablet (500 mg total) by mouth 2 (two) times a day Active adalimumab (Humira,CF, Pen) 40 mg/0.4 mL pen injector kit Active cephalexin (KEFTAB) 500 mg tablet Take 1 tablet twice a day by oral route for 7 days. Active nicotine (NICODERM CQ) [address] 1 patch on the skin daily for 28 days 28 patch 06/30/19 24 Active nicotine 10 mg/mL spray,non-aeroso l Administer 16 sprays into affected nostril(s) daily 40 mL 06/30/19 24 Active nicotine (NICODERM CQ) [address] 1 patch on the skin daily for 14 days 14 patch 06/30/19 24 Active nicotine (NICODERM CQ) [address] 1 patch on the skin daily for 14 days 14 patch 06/30/19 24 Active cyclobenzaprine (FLEXERIL) 5 mg tablet Take 1 tablet (5 mg total) by mouth 2 (two) times a day as needed Active psyllium, aspartame, SF (Metamucil Fiber Singles) 3.4 gram packet Take 1 packet by mouth 3 (three) times a day Active Cosentyx 150 mg/mL syringe Inject 1 mL (150 mg total) under the skin every 28 (twenty-eight) days 09/20/19 24 Active triamcinolone (KENALOG) 0.1 % ointment APPLY TO AFFECTED AREAS TWICE A DAY NEEDED FOR 30 DAYS 10/27/19 24 Active melatonin 10 mg tablet Active mv,Ca,min-FA-her bal comp #223 400 mcg tablet Take by mouth A ctive Active Problems Problem Noted Date Diagnosed Date ILD (interstitial lung disease) 12/23/2022 Upper back pain 12/27/2017 Upper abdominal pain 12/27/2017 Left ventricular aneurysm 12/27/2017 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 UARS (upper airway resistance syndrome) 08/15/19 18 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 Restless legs syndrome (RLS) 05/09/2017 Type 2 diabetes mellitus with hyperglycemia 04/2017 Fibromyalgia Hypertension Encounters Date Type Department Care Team Description 04/22/2024 Telephone [facility] Obstetrical Gynecology [address] [place] [address] [address] [place] [address] Magda Vicente MA WAFER PRODUCTION WORKER not seen yet ; requesting ORDERS from Last 3 Months Immunizations Immunization Administration Dates Next Due Influenza, Unspecified 11/07/2017,11/06/2015 Surgical History Surgery Date Site/Laterality Comments ABDOMINAL SURGERY JOINT REPLACEMENT right hip SKIN BIOPSY TOTAL HIP ARTHROPLASTY Right Medical History Medical History Date Comments Arthritis Diabetes mellitus (HCC) Thyroid disease On thyroid medic ation - .125 levothhyroxin Sleep apnea Fibromyalgia RLS (restless legs syndrome) Hypertension Family History Medical History Relation Name Comments Diabetes Brother Hypertension Brother Heart disease Father Hypertension Father's Sister Diabetes Mother Hypertension Mother Heart disease Other 1 Family history of cardiac disorder - (Added by TW Conv) Arthritis Other 2 Family history of arthritis - (Added by TW Conv) Seizures Other 3 Family history of seizures - (Added by TW Conv) Stroke Other 4 Family history of cerebrovascular accident (CVA) - (Added by TW Conv) Cancer Other 5 Family history of malignant neoplasm - (Added by TW Conv) Kidney disease Other 6 Family histor y of kidney disease - (Added by TW Conv) Diabetes Other 7 Family history of diabetes mellitus - (Added by TW Conv) Lung disease Other 8 Family history of lung disease - (Added by TW Conv) Diabetes Sister Hypertension Sister Relation Name Status Comments Brother Father Father's Sister Mother Other 1 Other 2 Other 3 Other 4 Other 5 Other 6 Other 7 Other 8 Sister Social History Tobacco Use Types Packs/Day Years Used Date Smoking Tobacco: Every Day Cigarettes 1 15 Smokeless Tobacco: Never Tobacco Cessation:Ready to Q uit: Yes; Counseling Given: No Alcohol Use Standard Drinks/Week Comments Yes 0 (1 standard drink = 0.6 oz pur e alcohol) occassionally Comments Unknown Sex and Gender Information Value Date Recorded Sex Assigned at Not on file Legal Sex Female 6:09 PM DEPUTY SHERIFF Gender Identity Not on file Sexual Orientation Not on file Obstetrics History Last Filed Vital Signs Vital Sign Reading Time Taken Comments Blood Pressure 98/56 01/12/2024 10:01 AM DEPUTY SHERIFF Pulse 70 01/12/2024 10:01 AM DEPUTY SHERIFF Temperature 36.2 C (97.2 F) 01/12/2024 10:01 AM DEPUTY SHERIFF Respiratory Rate 18 01/12/2024 10:01 AM DEPUTY SHERIFF Oxygen Saturation 100% 01/12/2024 10:01 AM DEPUTY SHERIFF Inhaled Oxygen Concentration - - Weight 70.3 kg (155 lb) 01/12/2024 10:01 AM DEPUTY SHERIFF Height 152.4 cm (5') 01/12/2024 10:01 AM DEPUTY SHERIFF Body Mass Index 30.27 01/12/2024 10:01 AM DEPUTY SHERIFF Plan of Treatment Health Maintenance Due Date Last Done Comments Albumin Creatinine Ratio, Urine 1954 Colon Cancer Screening-Colonoscopy 1954 Depression Screening 1954 Fall Risk Assessment 1954 Hemoglobin A1C 1954 Hepatitis C Screening 1954 Dilated Eye Exam 1954 Foot Exam 1954 Hepatitis B Screening 1972 Zoster Vaccine (1 of 2) 2004 Lipid Panel 11/04/2016 11/05/2015 Well Visit 65+ 12/15/2019 Osteoporosis Screening-Bone Density Scan 10/05/2022 10/05/2020 Breast Cancer Screening-Mammogram 03/07/2023 023 Covid-19 Vaccine (4 - 2023-2 5 season) 2023 12/04/2020, 04/27/2020, 03/19/2020, Additional history exists Influenza Vaccine (#1) 2023 , 11/04/2020, 09/22/2019, Additional history exists eGFR 12/24/2023 12/23/2022, 12/08, 12/27/2017 Pneumococcal vaccine 65+ (3 of 3 - PCV20 or PCV21) 02/11/2025 02/12/2020, 02/12/2018, 12/11/2017, Additional history exists DTaP/Tdap/Td Vaccine (2 - Td or Tdap) 12/12/2027 12/11/2017 Medical Devices Implanted Type Area Tiedown Operator Device Identifier Shelf Expiration Date Model / Serial / Lot Hip Replacement Total Right-11/27/19 16 Implanted:11/07 by Forrest Antoine MD (Quantity not on file) Bone Right: Hip Description:Total hip replac ement. Lead (Rv) Implanted:Qty: 1 on 02/08/2021 by Moisés Garcia Jr., MD Lead Left: Ventricle Biotronik PLEXA PROMRI S 60 / [id number] / Lead (Ra) Implanted:04/2021 by Moisés Garcia Jr., MD (Quantity not on file) Lead Heart Biotronik SOLIA S 53 / [id number] / Biotronik Pacemaker Implanted:Qty: 1 on 02/08/2021 by Moisés Garcia Jr., MD Pacemaker Left: Atria Biotronik RIVACOR 7 BOY DF4 PRO MRI / [id number] / Procedures Procedure Name Priority Date/Time Associated Diagnosis Comments EGFR Routine 12/23/2022 11:10 AM DEPUTY SHERIFF ILD (interstitial lung disease) (HCC) SERUM LIPID PANEL Routine 11/05/2015 11: 53 PM CDT from Last 3 Months or Most Recently Relevant to Health Maintenance Results * (ABNORMAL) eGFR (12/23/2022 11:10 AM DEPUTY SHERIFF) eGFR 52(L) >=60 mL/min/1. 73 m2 [facility] Comment: Interpretive Data Reference Interval Normal >/= 90 mL/min/1.73m2 Mildly decreased* 60 - 89 mL/min/1.73m2 Mildly to moderately decreased 45 - 59 mL/min/1.73m2 Moderately to severely decreased 30 - 44 mL/min/1.73m2 Severely decreased 15 - 29 mL/min/1.73m2 Kidney Failure < 15 mL/min/1.73m2 *Relative to young adult level Estimated glomerular filtration rate is determined by the 2020 CKD-EPI equation recommended by the National Kidney Foundation (A Unifying Approach to GFR Estimation: Recommendations of the NKF-ASK Task Force on Reassessing the Inclusion of Race in Diagnosing Kidney Disease, JASN 2020). The CKD-EPI equation should not be used for patients with unstable renal function and has not been validated in children and those over 70. Current interpretive data was last reviewed 2020. Blood 12/23/2022 11:1 0 AM DEPUTY SHERIFF 12/23/2022 12:14 PM DEPUTY SHERIFF Ananda Davis MD LAB BLOOD ORDERAB LES Final Result [facility] Department [place] [address] * Serum lipid panel (11/05/2015 11:53 PM CDT) Cholesterol 130 30 - 200 mg/dl CDR HISTORICAL RESULTS Comment: Interpretive Data Desirable: <200 mg/dL Borderline high: 200-239 mg/dL High: > or = 240 mg/dL Literature Reference: National Cholesterol Education Program (NCEP) Expert Panel on Detection, Evaluation, and Treatment of High Blood Cholesterol in Adults (Adult Treatment Panel III). Circulation 2004; 110:227. Current interpretive data was last revised on 2014. Triglycerides 80 0 - 150 mg/dl CDR HISTORICAL RESULTS Comment: Interpretive Data Desirable: < 150 mg/dL Borderline High: 150 - 199 mg/dL High: 200 - 499 mg/dL Very High: > or = 499 mg/dL Literature Reference: See Cholesterol Current interpretive data was last revised on 2014. HDL 46 >=40 mg/dl CDR HISTO RICAL RESULTS Comment: Interpretive Data Less than 40 mg/dL - low; A major risk factor for heart disease. Greater than or equal to 60 mg/dL - High; considered protective of heart disease. Literature Reference: See Cholesterol Current interpretive data was last revised on 2014. LDL 68 10 - 129 mg/dl CDR HISTORICAL RESULTS Comment: Interpretive Data Optimal: < 100 mg/dL Near Optimal: 100 - 129 mg/dL Borderline High: 130 - 159 mg/dL High: 160 - 189 mg/dL Very high: > or = 190 mg/dL Literature Reference: See Cholesterol Current interpretive data was last revised on 2014. Non-HDL cholesterol, calculated 84 mg/dl CDR HISTORICAL RESULTS Comment: Interpretive Data When triglycerides are >200 mg/dL, non-HDL C is a secondary target of therapy, with a goal 30 mg/dL higher than the identified LDL-C goal. Reference: See Cholesterol Reference. Current interpretive data was last revised 2014. Serum 11/05/2015 11:5 3 PM CDT Tima Howard MD LAB BLOOD ORDERABLES Final Resul t CDR HISTORICAL RESULTS from Last 3 Months or Most Recently Relevant to Health Maintenance Insurance [facility] MEDICARE [facility] Address: [address] [address] MEDICARE IDIN MEDICARE [facility] Address: [address] [address] [place] [address] IDPA Advance Directives For more information, please contact: [phone] * Full Code (Latest Code Status on File) Date Activated Date Inactivated Comments 12/27/2017 9:33 AM 12/28/2017 8:50 PM Healthcare Agents on File Name Relationship Healthcare Agent [facility] p Communication Lila Hidalgo Friend Health Care Agent Care Teams Shank Scourer Relationship Specialty Start Date End Date Moshe Zambrano MD [address] [facility] [address] [place] [address] PCP - General Internal Medicine 01/12/24 [place] [address] [address] Consulting Physician Cardiology 12/28/17
--- OUTSIDE RECORDS SUMMARY | 2024-05-08 10:09 | XMS_ITS | Encounter Summary ---
Author Organization [facility] Address [address] [facility] [place] [address] Care Team Providers Care Deputy Director Of Nursing Name Role Phone Kady Singh MD Primary Care Provider [phone] Reason for Visit * Reason Onset Date Comments Pre-op Instructions 04/24/2023 Encounter Details Date Type Department Care Team (Late st Contact Info) Description 04/24/2023 Patient Outreach [facility] ENDOSCOPY [address] [place] [phone] Luz Jones RN Pre-op Instructions Social History Tobacco Use Types Packs/Day Years [...] or have serious hearing difficult y? No 07/14/2022 Is person blind or have serious difficulty seein g? No 07/14/2022 Does person have serious dif ficulty walking/climbing stairs? No 07/14/2022 Does person have difficulty dressing/bathing? No 07/14/2022 Does person have difficulty doing errands alone? No 07/14/2022 Cognitive Status Response Date of Assessm ent Does person have difficulty concentrating/remembering/making decisions? No 07/14/2022 documented as of this encounter Plan of Treatment Upcoming Encounters Date Type Department Care Team (Late st Contact Info) Description 05/27/2024 10:15 AM CDT Appointment [facility] [address] [place] [address] Wayne Vasquez MD [address] [place] [address] [address] [place] [address] 05/27/2024 11:30 AM CDT Office Visit [facility] - GI [address] [place] [phone] Wayne Vasquez MD [address] [place] [address] [address] [place] [address] 05/27/2024 1:20 PM CDT Office Visit [facility] - Dermatology [address] [place] [phone] Tiana Katz MD [address] [place], [place] [address] [address] documented as of this encounter Goals Goal [...] on filedocumented in this encounter Care Teams Deputy Director Of Nursing Relationship Specialty Start Date End Date Kady Singh MD [address] [place] [address] [place] [address] PCP - General Family Medicine 04/18/22 documented as of this encounter
--- OUTSIDE RECORDS SUMMARY | 2024-05-08 10:09 | XMS_ITS | Referral Summary ---
Author Organization [facility] Address [address] [place] [address] Care Team Providers Care Automatic Edger Name Role Phone Deysi Reno MD Unavailable Moshe Zambrano MD Primary Care Provider [phone] Encounters Date Type Department Care Team Description 04/22/2024 Telephone [facility] Medical Group Obstetrical Gynecology [facility] [address] [place] [address] Magda Vicente MA AIRCRAFT SYSTEMS REPAIRER not seen yet ; requesting ORDERS from Last 3 Months Allergies Active Allergy Reactions Criticality Noted Date [...] diabetes mellitus with hyperglycemia 04/2017 Fibromyalgia Hypertension Immunizations Immunization Administration Dates Next Due Influenza, Unspecified 11/07/2017,11/06/2015 Social History Tobacco Use Types Packs/Day Years [...] on file Legal Sex Female 6:09 PM DOG LICENSE OFFICER SUPERVISOR Gender Identity Not on file Sexual Orientation Not on file Last Filed Vital Signs Vital Sign Reading Time Taken Comments Blood Pressure 98/56 01/12/2024 10:01 AM DOG LICENSE OFFICER SUPERVISOR Pulse 70 01/12/2024 10:01 AM DOG LICENSE OFFICER SUPERVISOR Temperature 36.2 C (97.2 F) 01/12/2024 10:01 AM DOG LICENSE OFFICER SUPERVISOR Respiratory Rate 18 01/12/2024 10:01 AM DOG LICENSE OFFICER SUPERVISOR Oxygen Saturation 100% 01/12/2024 10:01 AM DOG LICENSE OFFICER SUPERVISOR Inhaled Oxygen Concentration - - Weight 70.3 kg (155 lb) 01/12/2024 10:01 AM DOG LICENSE OFFICER SUPERVISOR Height 152.4 cm (5') 01/12/2024 10:01 AM DOG LICENSE OFFICER SUPERVISOR Body Mass Index 30.27 01/12/2024 10:01 AM DOG LICENSE OFFICER SUPERVISOR Plan of Treatment Not on file Medical Devices Implanted Type Area Agent Producer Device Identifier Shelf Expiration Date Model / Serial / Lot Hip Replacement Total Right-11/27/19 16 Implanted:11/07 by Forrest Antoine MD (Quantity not on file) Bone Right: Hip Description:Total hip replac ement. Lead (Rv) Implanted:Qty: 1 on 02/08/2021 by Moisés Garcia Jr., MD Lead Left: Ventricle Biotronik PLEXA PROMRI S 60 / [id number] / Lead (Ra) Implanted:04/2021 by Moisés Garcia Jr., MD (Quantity not on file) Lead Heart Biotronik SOLIA S 53 / [id number] / Biotronik Pacemaker Implanted:Qty: 1 on 02/08/2021 by Moisés Garcia Jr., MD Pacemaker Left: Atria Biotronik RIVACOR 7 BOY DF4 PRO MRI / [id number] / Procedures Procedure Name Priority Date/Time Associated Diagnosis Comments EGFR Routine 12/23/2022 11:10 AM DOG LICENSE OFFICER SUPERVISOR ILD (interstitial lung disease) (HCC) SERUM LIPID PANEL Routine 11/05/2015 11: 53 PM CDT from Last 3 Months or Most Recently Relevant to Health Maintenance Results * (ABNORMAL) eGFR (12/23/2022 11:10 AM DOG LICENSE OFFICER SUPERVISOR) eGFR 52(L) >=60 mL/min/1. 73 m2 REY BRAMBILA Comment: Interpretive Data Reference Interval Normal >/= [...] of Race in Diagnosing Kidney Disease, JASN 202). The CKD-EPI equation should not be used for patients with unstable renal function and has not been validated in children and those over 70. Current interpretive data was last reviewed 2020. Blood 12/23/2022 11:1 0 AM DOG LICENSE OFFICER SUPERVISOR 12/23/2022 12:14 PM DOG LICENSE OFFICER SUPERVISOR us Ananda Davis MD LAB BLOOD ORDERAB LES Final Result [facility] Department [place] [address] * Serum lipid panel (11/05/2015 11:53 PM [...] 2014. Serum 11/05/2015 11:5 3 PM CDT us Tima Howard MD LAB BLOOD ORDERABLES Final Resul t CDR HISTORICAL RESULTS from Last 3 Months or Most Recently Relevant to Health Maintenance Insurance [facility] MEDICARE MEDICARE [facility] MEDICARE IDPA Advance Directives For more information, please contact: [phone] * Full Code (Latest Code Status on File) Date Activated Date Inactivated Comments 12/27/2017 9:33 AM 12/28/2017 8:50 PM Healthcare Agents on File Name Relationship Healthcare Agent [facility] Communication Lila Hidalgo [place] [facility] Care Agent Care Teams Automatic Edger Relationship Specialty Start Date End Date Moshe Zambrano MD [address] [facility] [address] [place] [address] PCP - General Internal Medicine 01/12/24 [place] [address] [facility] [address] [address] Consulting Physician Cardiology 12/28/17
--- OUTSIDE RECORDS SUMMARY | 2024-05-08 10:09 | XMS_ITS | Encounter Summary ---
Author Organization [facility] Address [facility] [place] [address] Care Team Providers Care Half Sole Fitter Name Role Phone Moshe Zambrano MD Primary Care Provider [phone] Encounter Details Date Type Department Care Team (Late st Contact Info) Description 01/10/2024 Prep for Procedure Health [place] [address] Karyn Stein MD [address] [facility] [address] [place], [place] [id number] Social History Tobacco Use Types Packs/Day Years [...] on file documented as of this encounter Plan of Treatment Not on file documented as of this encounter Results * (ABNORMAL) URINE BACTERIA CULTURE (01/09/2024 3:33 PM RAILROAD CAR PAINTER) SPEC DESCRIPTION URINE CLEAN CATCH 01/10/2024 9:35 AM RAILROAD CAR PAINTER [facility] SPECIAL REQUESTS NO SPECIAL REQUEST 01/10/2024 9:35 AM RAILROAD CAR PAINTER [facility] CULTURE RESULT 50,000-100,000 COL/ML ESCHERICHIA COLI (A) 01/12/2024 7:13 AM RAILROAD CAR PAINTER [facility] CULTURE RESULT 1,000-9,000 COL/ML STREPTOCOCCI, BETA HEMOLYTIC GROUP B SUSCEPTIBILTY NOT ROUTINELY PERFORMED. SAVING ISOLATE FOR 5 DAYS. CONTACT MICROBIOLOGY DEPARTMENT IF FURTHER WORKUP IS INDICATED. (A) 01/12/2024 7:13 AM RAILROAD CAR PAINTER [facility] URINE SPECIMEN OBTAINED BY CLEAN CATCH PROCEDURE / Unknown 01/09/2024 3:33 PM RAILROAD CAR PAINTER 01/10/2024 9:43 AM RAILROAD CAR PAINTER Narrative Organism Antibiotic Method Susceptibility Escherichia coli [...] MICROBIOLOGY - GENERAL ORDERA BLES Final Result [facility] [address] [place] [address], documented in this encounter Visit Diagnoses Diagnosis Lumbar compression fracture (CMS/HCC [facility])- Primary Closed fracture of lumbar vertebra without mention of spinal cord injury Abnormal urine findings Other nonspecific finding on examination of urine documented in this encounter Care Teams Half Sole Fitter Relationship Specialty Start Date End Date Moshe Zambrano MD [address] [place] [address] [address] [place] [address] PCP - General INTERNAL MEDICINE 01/09/24 Dyesi Reno Physician CARDIOLOGY 02/06/23 David Reno Physician NEPHROLOGY 02/06/23 documented as of this encounter
[2024-05-08 11:25] LABS: Cholesterol 190 mg/dL (0-200); HDL Direct 79 mg/dL; Triglycerides 124 mg/dL (<150)
[2024-05-08 11:31] LABS: Calcium 10.1 mg/dL (8.4-10.2)
[2024-05-08 11:36] LABS: LDL Cholesterol Direct 67 mg/dL
== END 2024-05-08 09:24 | disposition home or self-care (01) ==
LOC: ANHLAB 09:24
PROVIDERS: Internal Medicine Hematology & Oncology; PCP Internal Medicine Endocrinology, Diabetes & Metabolism; Visit Provider Internal Medicine Endocrinology, Diabetes & Metabolism
DX: M81.0 Age-related osteoporosis without current pathological fracture (principal); E78.5 Hyperlipidemia, unspecified; Z92.29 Personal history of other drug therapy
CPT/HCPCS: 36415; 80061; 82040; 82310

== ENCOUNTER 2024-10-10 10:07 | Outpatient (CLI) | payer MEDICARE, MEDICAID, SELFPAY ==
--- NOTE | ~2024-10-10 | XR_ITS ---
EXAMINATION: XR thoracic spine 3V DATE: 10/10/2024 10:35 INDICATION: Wedge compression fracture. TECHNIQUE: 3 images of the thoracic spine were obtained. COMPARISON: Lumbar spine x-rays 10/10/2024 FINDINGS: Bones appear osteopenic. Multilevel degenerative change scattered throughout the thoracic spine. No compression fracture identified in the thoracic spine. Stable severe compression fracture of the L1 vertebral body. IMPRESSION: 1. No compression fracture in the thoracic spine. 2. Multilevel degenerative change throughout the thoracic spine. 3. Grossly stable compression fracture of the L1 vertebral body. If symptoms persist or worsen, consider a thoracic spine MRI for further assessment. Reviewed, dictated and finalized at location Q. IMPRESSION: 1. No compression fracture in the thoracic spine. 2. Multilevel degenerative change throughout the thoracic spine. 3. Grossly stable compression fracture of the L1 vertebral body. If symptoms persist or worsen, consider a thoracic spine MRI for further assess ment.
--- NOTE | ~2024-10-10 | XR_ITS ---
XR lumbar spine min 4V 10/10/2024 10:35 Indication: Follow-up fracture of the lumbar spine Procedure: 4 views lumbar spine Comparison: Comparison to multiple prior studies sequentially, with oldest reviewed study dated 05/01/2023. Findings: Stable chronic burst fracture L1. Remainder of the vertebral body heights are maintained. There is disc narrowing at L2-3 through L5-S1. There is facet hypertrophy at L5-S1 and L4-5. There is atherosclerosis. There are cholecystectomy clips. Impression: 1: Stable chronic L1 burst fracture. 2: Severe lumbar spondylosis. Reviewed, dictated and finalized at location O. Impression: 1: Stable chronic L1 burst fracture. 2: Severe lumbar spondylosis.
--- OUTSIDE RECORDS SUMMARY | 2024-10-10 10:41 | XMS_ITS | Encounter Summary ---
Author Organization [facility] Address [address] [facility] [place] [address] Care Team Providers Care Data Entry Machine Operator Name Role Phone Kady Singh MD Primary Care Provider [phone] Moshe Zambrano MD Primary Care Provider [phone] Encounter Details Date Type Department Care Team (Late st Contact Info) Description 06/16/2023 Telephone [facility] - Dermatology [address] [facility], [facility] [place] [address] Mayra Louis, [address] [place] [address] Social History Tobacco Use Types Packs/Day Years Used Date Smoking Tobacco: Every Day Cigarettes 0.5 56 Smokeless Tobacco: Never Alcohol Use Standard Drinks/Week Comments No 0 (1 standard drink = 0.6 oz pur e alcohol) Comments No Sex and Gender Information Value Date Recorded Sex Assigned at Not on file Legal Sex Female 4:21 AM PACK WORKER Gender Identity Not on file Sexual Orientation Not on file documented as of this encounter Functional Status * Is person deaf or have serious hearing difficulty? Answer Date of Assessment Author No 05/11/2023 2:00 PM CDT Hattie Steen, RN * Is person blind or have serious difficulty seeing? Answer Date of Assessment Author No 05/11/2023 2:00 PM CDT Hattie Steen, RN * Does person have serious difficulty walking/climbing stairs? Answer Date of Assessment Author No 05/11/2023 2:00 PM CDT Hattie Steen, RN * Does person have difficulty dressing/bathing? Answer Date of Assessment Author No 05/11/2023 2:00 PM CDT Hattie Steen RN * Does person have difficulty doing errands alone? Answer Date of Assessment Author No 05/11/2023 2:00 PM CDT Cyndie Steen, RN documented as of this encounter Mental Status * Does person have difficulty concentrating/remembering/making decisions? Answer Entry Date Author No 05/11/2023 2:00 PM CDT Hattie Steen RN documented in this encounter Miscellaneous Notes * Telephone Encounter - Debo Sanchez - 06/16/2023 10:41 AM CDT Current Provider: Reason for Call: medicare doesn't cover pressure socks....needing doc office to call DME for [place] Medicaid to see if they will cover the pressure socks Patient Call Back Number: [phone] documented in this encounter Plan of Treatment Upcoming Encounters Date Type Department Care Team (Latest Contact Info) Description 12/25/2024 10:15 AM [address] [facility] US [address] [place] [phone] Wayne Vasquez MD [address] [place] [address] 12/25/2024 1:00 PM PACK WORKER Hospital Encounter [facility] ENDOSCOPY [address] [place] [phone] Melody Fernandez MD [address] [place] [phone] Surgery General 12/25/2024 1:00 PM PACK WORKER - 12/25/2024 1:45 PM P[address] WORKER Surgery [facility] ENDOSCOPY [address] [place] [address] Melody Fernandez MD [address] [place] [phone] COLONOSCOPY SCREEN--2 day prep with suprep w/ jed. US prior. labs also 05/12/2025 10:00 AM CDT Office Visit [facility] - GI [address] [facility], [place] [address] Wayne Vasquez MD [address] [facility] 2L [place] [address] Scheduled Procedures Name Priority Associated Diagnoses Date/Ti me COLONOSCOPY SCREEN History of adenomatous polyp of colon 12/25/2024 1:00 PM PACK WORKER documented as of this encounter Goals Goal Patient Goal Type Associated Problems Recent Progress Patient-Stated? Author Medication Management General On track( 025 11:58 AM CDT) No Karyn Pozo, RN Note: Expected end date: Ongoing Interventions: Take all medications as prescribed Let your doctor know right away about any changes in your medications Make sure to request a refill of your medication at least one week prior to your last dose documented as of this encounter Visit Diagnoses Not on filedocumented in this encounter Care Teams Data Entry Machine Operator Relationship Specialty Start Date End Date Kady Singh MD [address] [place] [address] [place] [address] PCP - General Family Medicine 04/18/22 05/26/24 Moshe Zambrano MD [address] [place] [address] [address] [place] [address] PCP - General Internal Medicine 05/27/24 documented as of this encounter
--- OUTSIDE RECORDS SUMMARY | 2024-10-10 10:41 | XMS_ITS | Clinical Summary ---
Author Organization [facility] [employer] [facility] Address [address] [place], [place] [address] [place] [address] Phone Care Team Providers Care Route Deliverer Name Role Phone Moshe Zambrano MD Primary Care Provider [phone] Encounters Date Type Department Care Team Description 10/01/2024 Documentation Only [facility] [address] [place] [address] Provider, MD Thom from Last 3 Months Social History Tobacco Use Types Packs/Day Years Used Date Smoking Tobacco: Never Assessed Comments Unknown Sex and Gender Information Value Date Recorded Sex Assigned at Not on file Legal Sex Female 5:02 PM EDT Gender Identity Not on file Sexual Orientation Not on file Plan of Treatment Upcoming Encounters Date Type Department Care Team (Late st Contact Info) Description 05/13/2025 1:00 PM CDT Office Visit [facility] [address] [facility] 15 [place] [address] Chester Yin DO [address] [facility] 1 [place] [address] Health Maintenance Due Date Last Done Comments Breast Cancer Screening 1955 Colorectal Cancer Screening: Annual FOBT 12/15/2003 Colorectal Cancer Screening: Sigmoidoscopy 12/15/2003 Hepatitis B Vaccine (1 of 3 - Risk 3-dose series) 2014 Diabetes: Hemoglobin A1C 10/01/2024 04/24/2019 Diabetes: Ophthalmology Exam 10/01/2024 Diabetes: Pedal Pulse Checked 10/01/2024 Diabetes: Sensory Foot Exam 10/01/2024 Diabetes: Visual Foot Exam 10/01/2024 Influenza Vaccine (#1) 2024 4, 11/03/2022, 10/16/2021, Additional history exists Pneumococcal Vaccine: 50+ Ye ars (4 of 4 - PCV20 or PCV21) 07/27/2027 07/26/2022, 02/12/2020, 02/12/2018, Additional history exists Colorectal Cancer Screening: Colonoscopy 12/20/2033 12/21/2023 Insurance Medicaid [place] Medicare Care Teams Route Deliverer Relationship Specialty Start Date End Date Moshe Zambrano MD [address] [facility] [address] [place] [address] PCP - General Internal Medicine 10/01/24
--- OUTSIDE RECORDS SUMMARY | 2024-10-10 10:41 | XMS_ITS | Clinical Summary ---
Author Organization [facility] Address [address] [place] [address] Care Team Providers Care Neonatal Social Worker Name Role Phone Moshe Zambrano MD Primary Care Provider Source Comments [facility],non-owned Affiliates and Associated Physician Practices is amultiple site organization consisting of ambulatory clinics and hospital sitesin [place], [place], [place] and [place]. This disclosure is being madepursuant to the Care Everywhere program and may not contain all information available regarding this patient. Last updated 17.[facility] Allergies Active Allergy Reactions Criticality Noted Date Comments Amoxicillin-Pot Clavulanate Anaphylaxis High 06/04/2018 Augmentin Anaphylaxis,Cough High 05/27/2024 Augmentin Adalimumab Headache 05/23/2023 Meloxicam Nausea and/or Vomiting,Shortness of Breath,Swelling High 04/10/2017 Nsaids Other Low 11/16/2020 Kidney function Sulfasalazine Swelling,Cough,Vomit i ng High 04/18/2022 Swelling of face and hands, cough, vomiting. Medications * Be aware that medications may not be up to date on this document. Alwaysverify current medications with the patient. blood glucose test strip Use 1 (one) strip as directed Active Lancets Thin MISC Use as directed Acti ve omeprazole (PRILOSEC) 20 MG capsule Take 1 (one) capsule by mouth daily before breakfast Active pravastatin (PRAVACHOL) 40 MG tablet Take 1 (one) tablet by mouth at bedtime Active glimepiride (AMARYL) 2 MG tablet Take 1 (one) tablet by mouth as needed Take 1-2 depending on blood sugar level 08/14/19 19 Active allopurinol (ZYLOPRIM) 100 MG tablet Take [...] 1 (one) tablet by mouth every morning 03/20/19 22 Active PROLIA 60 MG/ML SC injection Inject 1 mL subcutaneously Every 180 days 02/09/19 22 Active cyanocobalamin (VITAMIN B-12) injection Inject 1,000 (one thousand) mcg into muscle every 7 days Active liothyronine (CYTOMEL) 5 MCG tablet Take 1 (one) tablet by mouth once daily Active gabapentin (NEURONTIN) 300 MG capsuleIndicati ons:PLMD (periodic limb movement disorder) TAKE 2 CAPSULES BY MOUTH AT BEDTIME 180 capsule 3 07/23/19 22 Active melatonin 10 MG tablet Take 10 (ten) mg by mouth at bedtime Active Vitamin D, Ergocalciferol, 47726 units CAPS Take by mouth every 7 [...] by mouth once daily Takes as needed 06/17/19 23 Active levothyroxine (Euthyrox) 100 MCG tablet Take 1 (one) tablet by mouth every morning Active Semaglutide(0.2 5 or 0.5MG/DOS) 2 MG/3ML Solution Pen-injector Inject 2 mg subcutaneously every 7 days 08/17/19 23 Active METAMUCIL FIBER PO Take by mouth 3 times daily Active cyclobenzaprine (Flexeril) 5 MG tablet Take 1 (one) tablet by mouth 3 times daily as needed Only taking at bedtime - can't drive if she takes during the day Active Blood Glucose Monitoring Suppl (Accu-Chek Guide Me) w/Device KIT USE TO TEST BLOOD SUGAR 3 TIMES DAILY 09/26/19 24 Active midodrine (Proamatine) 5 MG tablet Take 1 (one) tablet by mouth 2 times daily 08/28/19 24 Active nicotine (Nicoderm CQ) 21 MG/24HR patch Apply 1 (one) patch to skin every 24 hours 06/30/19 24 Active Nicotrol NS 10 MG/ML nasal spray [place] 1 (one) spray into each nostril 3 times daily as needed for Smoking Cessation Active Cosentyx 150 MG/ML prefilled syringe Inject 150 (one hundred fifty) mg subcutaneously every 28 days 09/20/19 24 Active sodium picosulfate - magnesium oxide - anhydrous citric acid (Clenpiq) solution Take by mouth as directed 1 kit 12/13/19 24 Active Additional Information Patient not taking.Reason: Patient adjusted, Reported on 05/27/2024 polyethylene glycol 3350 (Miralax) 17 GM/SCOOP powder Take a dose twice a day starting a week before your colonoscopy. Then, mix the remainder of the prep (14 doses) with 64oz clear liquids and drink 2 days before your colonoscopy 510 g 12/13/19 24 Active bisacodyl EC (Dulcolax) 5 MG tablet Take 4 tablets orally at noon 2 days before your colonoscopy. Take 4 tablets orally at noon the day before your colonoscopy 8 tablet 12/13/19 24 Active Additional Information Patient not taking.Reason: Patient adjusted, Reported on 05/27/2024 magnesium citrate solution Take at 5pm 2 nights before your colonoscopy 300 mL 12/13/19 24 Active Additional Information Patient not taking.Reason: Patient adjusted, Reported on 05/27/2024 NA-K-MG sulfates (Suprep) 17.5-3.13-1.6 GM/177ML solution Drink 1 bottle of prep followed by 32oz clear liquids at 5pm the night before your colonoscopy. Drink second bottle of prep followed by 32oz clear liquids at 4am day of test 1 kit 12/15/19 24 Active Additional Information Patient not taking.Reason: Provider adjusted, Reported on 05/27/2024 triamcinolone acetonide (Kenalog) 0.1 % ointmentIndicat ions:Other eczema,Erythrom elalgia Apply to affected areas BID PRN. 30 day supply 454 g 11 05/28/19 25 Active Active Problems Problem Noted Date Diagnosed [...] bleach solution if approve PCP. Consult professional center customer service associate to get way of cockroaches. Repair holes [...] positive for diabetic neuropathy. Sarah sees a endoscopy tech regularly for foot care. Discussed regular foot care with her to prevent and identify any irregularities on the soles of the feet or on and between the toes. Sarah encouraged to utilize a mirror for better view of the soles of the feet if needed. Advised member to discuss with the PCP the services of a endoscopy tech. Follow up in: three months with PCP and Regeneration Operator Multiple benign melanocytic nevi of upper and [...] pain 01/09/2017 Fatigue 01/09/2017 Polyarthralgia 01/09/2017 Immunizations Immunization Administration Dates Next Due KIKE TORRES PRIMARY 18+YR 03/19/2020 FLU VACCINE QUAD IIV4 [...] on file Legal Sex Female 4:21 AM SODA JERKER Gender Identity Not on file Sexual Orientation Not on file Last Filed Vital Signs Vital Sign Reading Time Taken Comments Blood Pressure 117/55 05/27/2024 12:00 PM CDT Pulse 84 05/27/2024 12:00 PM CDT Temperature 36.7 C (98 F) 05/27/2024 12:00 PM CDT Respiratory Rate 17 12/21/2023 12:55 PM SODA JERKER Oxygen Saturation 100% 05/27/2024 12:00 PM CDT Inhaled Oxygen Concentration - - Weight 71.7 kg (158 lb) 05/27/2024 12:00 PM CDT Height 152.4 cm (5') 05/27/2024 12:00 PM CDT Body Mass Index 30.86 05/27/2024 12:00 PM CDT Plan of Treatment Upcoming Encounters Date Type Department Care Team (Latest Contact Info) Description 12/25/2024 10:15 AM SODA JERKER Appointment [facility] [address] [place] [phone] Wayne Vasquez MD [address] [place] [address] 12/25/2024 1:00 PM SODA JERKER Hospital Encounter [facility] END[facility] [address] [place] [address] Melody Fernandez MD [address] [place] [phone] Surgery General 12/25/2024 1:00 PM SODA JERKER - 12/25/2024 1:45 PM SODA JERKER Surgery [facility] ENDOSCOPY [address] [place] [address] Melody Fernandez MD [facility] [place] [address] COLONOSCOPY SCREEN--2 day prep with suprep w/ jed. US prior. labs also 05/12/2025 10:00 AM CDT Office Visit [facility] - GI [facility] [facility], [place] [address] Wayne Vasquez MD [address] [place] [address] [address] [place] [address] Scheduled Procedures Name Priority Associated Diagnoses Date/Ti me COLONOSCOPY SCREEN History of adenomatous polyp of colon 12/25/2024 1:00 PM SODA JERKER Health Maintenance Due Date Last Done Comments [...] EXAM WITH MONOFILAMENT 05/18/2018 DIABETES-HGB A1C 05/18/2018 DEPRESSION SCREENING 02/07/2024 DIABETES - URINE PROTEIN SCREENING 02/07/2024 COVID-19 VACCINE ( season) 2024 12/09/2022, 10/16/2021, 12/04/2020, Additional history exists INFLUENZA VACCINE (#1) 2024 , 11/03/2022, 10/16/2021, Additional history exists DIABETES-SERUM CREATININE 01/08/20252023, 01/09/2024, 06/07/2023, Additional history exists PNEUMOCOCCAL VACCINE 50+ (3 of 3 - PCV20 or PCV21) 02/11/2025 02/12/2020, 02/12/2018, 12/11/2017 DTAP/TDAP/TD VACCINES (2 - Td or Tdap) 12/12/2027 12/11/2017 COLON MONITORING 12/20/2033 12/21/2023, , 06/22/2023, Additional history exists COLONOSCOPY - COLON CA SCREENING 12/20/2033 12/21/2023, 12/21/2023, 06/22/2023, Additional history exists Colorectal Cancer Screening 12/20/2033 HIB VACCINE Aged Out No longer eligi [...] General On track( 025 11:58 AM CDT) Karyn Milan, RN Note: Expected end date: Ongoing Interventions: Take all medications as prescribed Let your doctor know right away about any changes in your medications Make sure to request a refill of your medication at least one week prior to your last dose Procedures Procedure Name Priority Date/Time Associated Diagnosis Comments ENDOSCOPY, COLON, DIAGNOSTIC Routine 12/21/2023 11:28 AM SODA JERKER COMPREHENSIVE METABOLIC PANEL Routine 06/07/2023 11:19 AM CDT Liver cirrhosis secondary to LINK from Last 3 Months or Most Recently Relevant to Health Maintenance Results * ENDOSCOPY, COLON, DIAGNOSTIC (12/21/2023 11:28 AM SODA JERKER) Report Endoscopy POC Endoscopy Department Report _ Patient Name: Sarah Starr Procedure Date: 12/21/2023 11:28 AM Date of : 1955 Classification: Outpatient Gender: Female Ethnicity: Not or Race: White _ Providers: Melody Fernandez MD, Faraz Friedman MD(Fellow) Referring MD: Procedure: Colonoscopy Indications: High risk colon cancer surveillance: Personal history of colonic polyps, s/p EMR Medications: Monitored Anesthesia Care Patient Profile: This is a 68 year old female. Description of Procedure: After I obtained informed consent, the scope was passed under direct vision. Throughout the procedure, the patient's blood pressure, pulse, and oxygen saturations were monitored continuously. The PCF-[id number] was introduced through the anus and advanced to the cecum, identified by appendiceal orifice and ileocecal valve. The colonoscopy was performed without difficulty. The patient tolerated the procedure well. Scope insertion time was 9 minutes. Scope withdrawal time was 35 minutes. The quality of the bowel preparation was evaluated using the BBPS ([place] Bowel Preparation Scale) with scores of: Right Colon = 3 (entire mucosa seen well with no residual staining, small fragments of stool or opaque liquid), Transverse Colon = 3 (entire mucosa seen well with no residual staining, small fragments of stool or opaque liquid) and Left Colon = 3 (entire mucosa seen well with no residual staining, small fragments of stool or opaque liquid). The total BBPS score equals 9. Findings: Hemorrhoids were found on perianal exam. A 15 mm polyp was found in the distal ascending colon. The polyp was flat and typical for SSL. Preparations were made for endoscopic submucosal dissection. Demarcation of the lesion was performed with narrow band imaging to clearly identify the boundaries of the lesion. [place] was injected with adequate lift of the lesion from the muscularis propria. Cold piecemal mucosa resection was performed. Resected tissue margins were examined and clear of polyp tissue. There was no bleeding during the procedure. To prevent bleeding after the polypectomy, three hemostatic clips were successfully placed. There was no bleeding at the end of the procedure. A 2 mm, probable residual polyp was found in the proximal transverse colon at the site of the distal EMR. The polyp was removed with biopsy forceps. Resection and retrieval were complete. The proximal transverse EMR scar was noted to be healthy without residual polyp. Two clips remain on the polyp site. - Previously placed tattoos were seen. Estimated Blood Loss: Estimated blood loss was minimal. Complications: No immediate complications. Impression: - Serrated polyposis syndrome. - One 15 mm flat polyp in the distal ascending colon, removed with cold piecemeal EMR. Clipped. - One 2 mm, suspected residual polyp in the proximal transverse colon, removed with biopsy forceps. - Distal transverse colon EMR identified. No residual polyp seen. Recommendation: - Patient has a contact number available for emergencies. The signs and symptoms of potential delayed complications were discussed with the patient. Return to normal activities tomorrow. Written discharge instructions were provided to the patient. - High fiber diet. - Repeat colonoscopy in 1 year for surveillance. Repeat extended bowel preparation and use Endocuff. Attention to flat and subtle SSLs. Attending Participation: I was present and participated during the entire procedure, including non-jones portions. Procedure Code(s): --- Professional --- 43307, Colonoscopy, flexible; with removal of tumor(s), polyp(s), or other lesion(s) by snare technique 04057, Unlisted procedure, colon Diagnosis Code(s): --- Professional --- Z86.010, Personal history of colonic polyps K64.9, Unspecified hemorrhoids D12.3, Benign neoplasm of transverse colon (hepatic flexure or splenic flexure) D12.2, Benign neoplasm of ascending colon CPT copyright 2021 [employer]. All rights reserved. The codes documented in this report are preliminary and upon delivery helper review may be revised to meet current compliance requirements. Melody Fernandez MD 12/22/2023 2:47:07 PM This report has been signed electronically. Note Initiated On: 12/21/2023 11:28 AM Number of Addenda: [address] [id number] [facility] 12/21/2023 11:2 8 AM SODA JERKER Melody Fernandez MD GI PROCEDURE ORDERABLES Edited R esult - Final [facility] * (ABNORMAL) COMPREHENSIVE METABOLIC PANEL (06/07/2023 11:19 AM CDT) BUN 21 7 - 26 mg/dL 06/07/2023 12:12 PM [facility] Creatinine 1.33(H) 0.56 - 0.96 mg/dL 06/07/2023 12:12 PM [facility] Sodium 136 136 - 145 mmol/L 06/07/2023 12:12 PM [facility] Potassium 4.1 3.5 - 4.5 mmol/L 06/07/2023 12:12 PM [facility] Chloride 103 98 - 107 mmol/L 06/07/2023 12:12 PM [facility] CO2 23 22 - 29 mmol/L 06/07/2023 12:12 PM [facility] Glucose 73 70 - 115 mg/dL 06/07/2023 12:12 PM [facility] Calcium 10.0 8.4 - 10.2 mg/dL 06/07/2023 12:12 PM [facility] Protein Total 7.3 6.0 - 8.3 g/dL 06/07/2023 12:12 PM [facility] Albumin 3.8 3.4 - 5.0 g/dL 06/07/2023 12:12 PM [facility] Bilirubin Total 0.6 0.2 - 1.2 mg/dL 06/07/2023 12:12 PM [facility] Alkaline Phosphatase 64 40 - 150 U/L 06/07/2023 12:12 PM [facility] ALT 26 5 - 55 U/L 06/07/2023 12:12 PM [facility] AST 34 5 - 34 U/L 06/07/2023 12:12 PM [facility] Anion Gap 10 6 - 16 06/07/2023 12:12 PM [facility] BUN/Creatinine Ratio 16 7 - 23 06/07/2023 12:12 PM [facility] Osmolality Calculated 284 275 - 295 mOsm/kg 06/07/2023 12:12 PM [facility] Albumin/Globulin Ratio 1.1 1.1 - 2.3 06/07/2023 12:12 PM [facility] eGFR by CKD-EPI 44(L) >=90 mL/min/1.7 3 m2 06/07/2023 12:12 PM [facility] Blood BLOOD SPECIMEN / Unknown Lab Venipuncture / Unknown 06/07/2023 11:19 AM CDT 06/07/2023 11:44 AM [facility] us Wayne Vasquez MD LAB - CHEMISTRY ORDERABLES Fin al Result [facility] [address] [place] [address], [facility] [phone] from Last 3 Months or Most Recently Relevant to Health Maintenance Insurance MEDICARE MEDICAID - [place] Care Teams Neonatal Social Worker Relationship Specialty Start Date End Date Moshe Zambrano MD [address] [place] [address] [address] [place] [address] PCP - General Internal Medicine 05/27/24
--- OUTSIDE RECORDS SUMMARY | 2024-10-10 10:41 | XMS_ITS | Encounter Summary ---
Author Organization [facility] Address [address] [place] [address] Care Team Providers Care Recordings Librarian Name Role Phone Sue Michel Primary Care Provider + Kady Singh MD Primary Care Provider [phone] Moshe Zambrano MD Primary Care Provider [phone] Reason for Visit * Reason Onset Date Comments MEDICATION REFILL 11/04/2019 Encounter Details Date Type Department Care Team (Late st Contact Info) Description 11/04/2019 Refill [facility] [address] [place] [address] Adrienne Box MD No Information available MEDICATION REFILL Social History Tobacco Use Types Packs/Day Years Used Date Smoking Tobacco: Some Days Cigarettes Smokeless Tobacco: Never Alcohol Use Standard Drinks/Week Comments No 0 (1 standard drink = 0.6 oz pur e alcohol) occ Comments No Sex and Gender Information Value Date Recorded Sex Assigned at Not on file Legal Sex Female 4:21 AM FIELD REPORTER Gender Identity Not on file Sexual Orientation Not on file documented as of this encounter Miscellaneous Notes * Telephone Encounter - Annalisa Vargas - 11/04/2019 4:57 PM CDT [place] 12/03/18 No follow up Annalisa Vargas MA documented in this encounter Plan of Treatment Upcoming Encounters Date Type Department Care Team (Latest Contact Info) Description 12/25/2024 10:15 AM FIELD REPORTER Appointment [facility] [id number] [place] [phone] Wayne Vasquez MD [address] [place] [address] [address] [place] [address] 12/25/2024 1:00 PM FIELD REPORTER Hospital Encounter [facility] END[facility] [address] [place] [phone] Melody Fernandez MD [address] [place] [address] Surgery General 12/25/2024 1:00 PM FIELD REPORTER - 12/25/2024 1:45 PM FIELD REPORTER Surgery [facility] [address] [place] [phone] Melody Fernandez MD [facility][note 3][address] [place] [phone] COLONOSCOPY SCREEN--2 day prep with suprep w/ jed. US prior. labs also 05/12/2025 10:00 AM CDT Office Visit [facility] - GI [address] [place] [address], [place] [address] Wayne Vasquez MD [address] [place] [address] [address] [place] [address] Scheduled Procedures Name Priority Associated Diagnoses Date/Ti me COLONOSCOPY SCREEN History of adenomatous polyp of colon 12/25/2024 1:00 PM FIELD REPORTER documented as of this encounter Visit Diagnoses Not on filedocumented in this encounter Care Teams Recordings Librarian Relationship Specialty Start Date End Date Sue Michel APRN-CASTING MACHINE ADJUSTER [address] [address] PCP - General 09/12/19 04/17/22 Kady Singh MD [address] [place] [address] [place] [address] PCP - General Family Medicine 04/18/22 05/26/24 Moshe Zambrano MD [address] [place] [phone] PCP - General Internal Medicine 05/27/24 documented as of this encounter
--- OUTSIDE RECORDS SUMMARY | 2024-10-10 10:41 | XMS_ITS | Clinical Summary ---
Author Organization [facility] Address [address] [place] [id number] Care Team Providers Care Mastic Man Name Role Phone Deysi Reno MD Unavailable Moshe Zambrano MD Primary Care Provider [phone] Allergies Active Allergy Reactions Criticality Noted Date Comments Adalimumab Headache High 03/29/2023 Amoxicillin-Pot Clavulanate Anaphylaxis,Shortnes s of breath High 12/24/2018 Clavulanic Acid Other (See comments) 03/19/2023 Ibuprofen Other (See comments) Low 02/18/2020 Kidney function Meloxicam Nausea And Vomiting,Shortness of breath,Swelling,Anap hylaxis High 04/10/2017 Nsaids (Non-Steroidal Anti-Inflammatory Drug) Other (See comments) 01/09/2024 Low GFR Sulfadiazine Other (See comments) Low 12/23/2022 Sulfasalazine Cough,Swelling,Vomit ing High 04/18/2022 Swelling of face and hands, cough, vomiting. Medications gabapentin (NEURONTIN) 300 mg capsuleIndicat ions:Restless Legs Syndrome Take 1 capsule (300 mg total) by mouth daily Active magnesium oxide (MAG-OX) 400 mg (241.3 mg elemental magnesium) tabletIndicati ons:hypomagnes emia Take 400 mg by mouth daily. Active omeprazole (PriLOSEC) 20 mg capsule Take 1 capsule (20 mg total) by mouth daily Active allopurinoL (ZYLOPRIM) 100 mg tablet Take 1 tablet (100 mg total) by mouth daily 05/10/202 1 Active Ozempic 1 mg/dose (4 mg/3 mL) pen injector injection INJECT 1 MG (0.75 ML) SUBCUTANEOUSLY WEEKLY Active Eliquis 5 mg tablet Take 1 tablet (5 mg total) by mouth 2 (two) times a day 1 Active Accu-Chek Guide test strips strip TEST FASTING SUGARS DAILY IN MORNING 3 Active calcitRIOL (ROCALTROL) 0.25 mcg capsule Take 1 tablet by mouth daily 0 Active cyanocobalamin , vitamin B-12, 5,000 mcg capsule cyanocobalamin (vitamin B-12) 5,000 mcg capsule 8 Active Farxiga 10 mg tablet Take 1 tablet (10 mg total) by mouth every morning 0 Active denosumab (Prolia) 60 mg/mL syringe Inject one syringe (60 mg) under the skin every 6 months. 1 Active dilTIAZem (CARDIZEM) 90 mg tablet Take 1 tablet (90 mg total) by mouth 2 (two) times a day 2 Active dofetilide (TIKOSYN) 250 mcg capsule Take 1 capsule (250 mcg total) by mouth 2 (two) times a day 2 Active ergocalciferol (VITAMIN D) 50,000 unit capsule 6 Active fenofibrate (TRICOR) 54 mg tablet Take 1 tablet (54 mg total) by mouth every morning 0 Active furosemide (LASIX) 40 mg tablet Take 1 tablet (40 mg total) by mouth daily Active glimepiride (AMARYL) 2 mg tablet 0 Active Gvoke HypoPen 1-Pack 1 mg/0.2 mL auto-injector USE TO INJECT 1MG NEEDED UNDER THE SKIN FOR 1 DAY DIRECTED Active liothyronine (CYTOMEL) 5 mcg tablet Take 1 tablet (5 mcg total) by mouth daily Active traMADoL (ULTRAM) 50 mg tablet TAKE 1-2 TABLETS WITH TYLENOL BY MOUTH THREE TIMES DAILY 7 Active Euthyrox 100 mcg tablet Take 1 tablet (100 mcg total) by mouth every morning 3 Active acetaminophen (TYLENOL) 500 mg tablet Take 1 tablet (500 mg total) by mouth 2 (two) times a day Active nicotine (NICODERM CQ) [address] 1 patch on the skin daily for 28 days 28 patch 4 Active Additional Information Patient not taking.Reported on 09/25/2024 nicotine 10 mg/mL spray,non-aero bety Administer 16 sprays into affected nostril(s) daily 40 mL 4 Active Additional Information Patient not taking.Reported on 09/25/2024 nicotine (NICODERM CQ) [address] 1 patch on the skin daily for 14 days 14 patch 4 Active Additional Information Patient not taking.Reported on 09/25/2024 nicotine (NICODERM CQ) [address] 1 patch on the skin daily for 14 days 14 patch 4 Active Additional Information Patient not taking.Reported on 09/25/2024 cyclobenzaprin e (FLEXERIL) 5 mg tablet Take 1 tablet (5 mg total) by mouth 2 (two) times a day as needed Active psyllium, aspartame, SF (Metamucil Fiber Singles) 3.4 gram packet Take 1 packet by mouth 3 (three) times a day Active Cosentyx 150 mg/mL syringe Inject 1 mL (150 mg total) under the skin every 28 (twenty-eight) days 4 Active triamcinolone (KENALOG) 0.1 % ointment APPLY TO AFFECTED AREAS TWICE A DAY NEEDED FOR 30 DAYS 4 Active melatonin 10 mg tablet Active rosuvastatin (CRESTOR) 40 mg tablet Take 1 tablet (40 mg total) by mouth daily 5 Active amitriptyline (ELAVIL) 10 mg tablet Take 1 tablet (10 mg total) by mouth daily Active cephalexin (KEFTAB) 500 mg tablet Take 1 tablet twice a day by oral route for [address]. [address] (CYMBALTA) 30 mg capsule TAKE 1 CAPSULE BY MOUTH EVERY DAY FOR 10 DAYS, THEN INCREASE TO 2 CAPSULES DAILY THEREAFTER Active DULoxetine DR (CYMBALTA) 60 mg capsule Take 1 capsule every day by oral route. 5 Active hyoscyamine (LEVSIN) 0.125 mg tablet Take by mouth 3 (three) times a day as needed Active ketoconazole (NIZORAL) 2 % cream APPLY TO AFFECTED AREAS ON ABDOMEN AND GROIN TWICE DAILY. Active losartan (COZAAR) 50 mg tablet Take 1 tablet (50 mg total) by mouth daily 3 Active metFORMIN (FORTAMET) 500 mg 24 hr tablet 1 tablet (500 mg total) 4 Active pravastatin (PRAVACHOL) 40 mg tablet Take 1 tablet (40 mg total) by mouth daily Active predniSONE (DELTASONE) 5 mg tablet 5 Active glimepiride (AMARYL) 4 mg tablet TAKE 1 TABLET BY MOUTH TWICE A DAY BEFORE MEALS 5 Active Ozempic 2 mg/dose (8 mg/3 mL) pen injector injection INJECT 2 MG UNDER THE SKIN ONCE WEEKLY ON Monday 5 Active Active Problems Problem Noted Date Diagnosed Date Stage 3a chronic kidney disease 09/25/2024 AICD (automatic cardioverter/defibrillator) pres ent 09/25/2024 Nonalcoholic steatohepatitis (LINK) 09/25/2024 Obesity 09/25/2024 Arteriosclerosis of coronary artery 09/25/2024 Compression fracture of L1 vertebra 09/25/2024 Serrated polyposis syndrome 12/22/2023 Age-related osteoporosis wit h current pathological fracture, vertebra(e), sequela 12/07/2023 Pain of left hip joint 10/06/2023 Osteoarthritis of left hip 10/06/2023 ILD (interstitial lung disease) 12/23/2022 Ankylosing spondylitis 02/15/2022 Antinuclear antibody (LOREN) positive 12/06/2021 Carotid artery stenosis 11/30/2021 Solitary pulmonary nodule 09/24/2021 Multiple nodules of lung 09/24/2021 Dyspnea on exertion 08/27/2021 Obstructive sleep apnea syndrome 08/27/2021 Nonsustained paroxysmal ventricular tachycardia 01/05/2021 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 Educated on: Lifestyle changes, Nutrition, Foot care and Medication compliance. Discussed glucose control targets. The monofilament test was positive for diabetic neuropathy. Jamar sees a clinical nurse educator regularly for foot care. Discussed regular foot care with her to prevent and identify any irregularities on the soles of the feet or on and between the toes. Jamar encouraged to utilize a mirror for better view of the soles of the feet if needed. Advised member to discuss with the PCP the services of a clinical nurse educator. Follow up in: three months with PCP and Research Subject Stress incontinence of urine 12/24/2018 Osteoarthritis 12/24/2018 Overview (09/25/2024): Last Assessment & Plan: Condition: stable Jamar reports compliance with prescribed medications and denies side effects such as medication related stomach ulcers. Member reports/denies worsening morning stiffness that lasts less than 30 minutes; nocturnal pain, muscle weakness or locking of joints. Jamar demonstrates full range of motion in the affected joint. Jamar educated on weight reduction, increasing joint friendly low impact physical activity and maintaining a healthy weight. she was advised to discuss any issues with their PCP and keep all follow up appointments. 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 UARS (upper airway resistance syndrome) 08/15/19 18 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 Restless legs syndrome (RLS) 05/09/2017 Type 2 diabetes mellitus with hyperglycemia 04/2017 Type 2 diabetes mellitus 09/02/2014 Tobacco dependence syndrome 09/02/2014 Syncope and collapse 09/02/2014 Palpitations 09/02/2014 Fibromyalgia Hypertension Encounters Date Type Department Care Team Description 09/30/2024 Results Follow-Up [facility] Obstetrical Gynecology [address] [facility] [address] [place] [phone] Brionna Cevallos MD Pap and High Risk HPV and Genotyping (Cytology Component) 09/25/2024 4:29 PM CDT - 09/25/2024 11:59 PM CDT Hospital Encounter [facility] Lab [address] [place] [address] Well woman exam Discharge Disposition: Discharge to home or self care 09/25/2024 11:15 AM CDT Office Visit [facility] Obstetrical Gynecology [address] [facility] [address] [place] [phone] Brionna Cevallos MD Well woman exam (Primary Dx); Feeling of incomplete bladder emptying from Last 3 Months Immunizations Immunization Administration Dates Next Due Influenza, Quadrivalent, Hig h Dose, Preservative Free, Intrr 11/04/2020 Influenza, Quadrivalent, Spl it, Intramuscular 11/21/2018,10/30/2018,11/07/2017,11/11 Influenza, Quadrivalent, Spl it, Preservative Free, Intramuscular 09/22/2019 Influenza, Trivalent, IM (MDV) 11/06/2014 Influenza, Unspecified 11/07/2023,2022,10/16/2021,11/05,10/30/2018,11/07/2017,11/06/2015 Blitsy (J&J) SARS-CoV-2 Vaccination 03/19/2020 Pfizer SARS-CoV-2 Monovalent Vaccination (12+ Yrs) PURPLE 10/16/2021 Pneumococcal Conjugate PCV 13 02/12/2020 Pneumococcal Polysaccharide PPV23 02/12/2018,06/2017,03/13/2015 Pneumococcal, Unspecified 07/26/2022 Tdap 12/11/2017 ZOSTER Recombinant 06/08/2021,04/06/2021 Surgical History Surgery Date Site/Laterality Comments ABDOMINAL SURGERY JOINT REPLACEMENT right hip SKIN BIOPSY TOTAL HIP ARTHROPLASTY Right Medical History Medical History Date Comments Arthritis Diabetes mellitus (HCC) Thyroid disease On thyroid medic ation - .125 levothhyroxin Sleep apnea Fibromyalgia RLS (restless legs syndrome) Hypertension Arteriosclerosis of coronary artery 09/25/2024 Chronic obstructive pulmonar y disease (HCC) 07/15/2019 Family History Medical History Relation Name Comments [...] y of kidney disease - (Added by Conv) Diabetes Other 7 Family history of diabetes mellitus - (Added by Conv) Lung disease Other 8 Family history of lung disease - (Added by TW Conv) Diabetes Sister Hypertension Sister Breast cancer Neg Hx Ovarian cancer Neg Hx Uterine cancer Neg Hx Relation Name Status Comments Brother Father Father's [...] 0.6 oz pur e alcohol) occassionally Comments No Sex and Gender Information Value Date Recorded Sex Assigned at Not on file Legal Sex Female 6:09 PM EXECUTIVE WELLNESS PROGRAMS DIRECTOR Gender Identity Not on file Sexual Orientation Not on file Obstetrics History Para Term AB IAB SAB Ectopic Multiple Livin g Live Births 0 0 0 0 0 0 0 0 0 0 0 Comments 9/050 Last Filed Vital Signs Vital Sign Reading Time Taken Comments Blood Pressure 128/60 09/25/2024 11:33 AM CDT Pulse 72 06/04/2024 12:44 PM CDT Temperature 36.3 C (97.3 F) 06/04/2024 12:44 PM CDT Respiratory Rate 18 06/04/2024 12:44 PM CDT Oxygen Saturation 98% 06/04/2024 12:44 PM CDT Inhaled Oxygen Concentration - - Weight 67.1 kg (148 lb) 09/25/2024 11:33 AM CDT Height 152.4 cm (5') 09/25/2024 11:33 AM CDT Body Mass Index 28.9 09/25/2024 11:33 AM CDT Plan of Treatment Health Maintenance Due Date Last Done Comments Albumin Creatinine Ratio, Urine 1955 Colon Cancer Screening-Colonoscopy 1955 Depression Screening 1955 Fall Risk Assessment 1955 Hemoglobin A1C 1955 Hepatitis C Screening 1955 Dilated Eye Exam 1955 Foot Exam 1955 Hepatitis B Screening 1972 Lipid Panel 11/04/2016 11/05/2015 Well Visit 65+ 12/15/2019 Osteoporosis Screening-Bone Density Scan 10/05/2022 10/05/2020 Breast Cancer Screening-Mammogram 03/07/2023 023 eGFR 12/24/2023 12/23/2022, 12/08, 12/27/2017 Covid-19 Vaccine (2024-03 6 season) 2024 10/16/2021, 12/04/2020, 04/27/2020, Additional history exists Influenza Vaccine (#1) 2024 , 11/03/2022, 10/16/2021, Additional history exists Pneumococcal vaccine 65+ (3 of 3 - PCV20 or PCV21) 07/27/2027 07/26/2022, 02/12/2020, 02/12/2018, Additional history exists DTaP/Tdap/Td Vaccine (2 - Td or Tdap) 12/12/2027 12/11/2017 Zoster Vaccine Completed 06/08/2021, 04/06/2021 Medical Devices Implanted Type Area Heavy Forger Device Identifier Shelf Expiration Date Model / Serial / Lot Hip Replacement Total Right-11/27/19 16 Implanted:11/07 by Forrest Antoine MD (Quantity not on file) Bone Right: Hip Description:Total hip replac ement. Lead (Rv) Implanted:Qty: 1 on 02/08/2021 by Moisés Garcia Jr., MD Lead Left: Ventricle Biotronik PLEXA PROMRI S 60 / [id number] / Lead (Ra) Implanted:04/2021 by Moisés Garcia Jr., MD (Quantity not on file) Lead Heart Biotronik SOLIA S 53 / [id number] / Biotronik Pacemaker Implanted:Qty: 1 on 02/08/2021 by Moisés Garcia Jr., MD Pacemaker Left: Atria Biotronik RIVACOR 7 BOY DF4 PRO MRI / [id number] / Procedures Procedure Name Priority Date/Time Associated Diagnosis Comments PAP AND HIGH RISK HPV, REFLEX TO GENOTYPING Routine 09/25/2024 11:35 AM CDT Well woman exam HIGH RISK HPV DNA DETECTION WITH GENOTYPING Routine 09/25/2024 11:35 AM CDT Well woman exam EGFR Routine 12/23/2022 11:10 AM EXECUTIVE WELLNESS PROGRAMS DIRECTOR ILD (interstitial lung disease) (HCC) SERUM LIPID PANEL Routine 11/05/2015 11: 53 PM CDT from Last 3 Months or Most Recently Relevant to Health Maintenance Results * High Risk HPV DNA Detection with Genotyping (Molecular component) (09/25/2024 11:35 AM CDT) HPV HR 16 Not Detected Not Detected [facility] Comment:Testing performed by : [facility], [address] [place]., [address] HPV HR 18 Not Detected Not Detected [facility] Comment:Testing performed by : [facility], [address] [place]., [address] HPV HR Non 16/18 Not Detected Not Detected [facility] Comment: Interpretive Data Nucleic acid amplification for detection of high-risk Human Papilloma virus (HPV) is performed by the Zi Raina 6800 HPV test. This assay specifically detects HPV-16 and HPV-18 genotypes. The following HPV genotypes are detected as high-risk HPV: HPV-31, 33, 35, ,39, 45, 51, 52, 56, 58, 59, 66, and 68. This assay has been approved by the [place] Food and Drug Administration for detection of HPV in cervical specimens collected by a physician using an endocervical brush/spatula or cervical broom and placed in the ThinPrep Pap Test PreservCyt collection containers. The performance characteristics of this test have been verified by the [facility] Molecular Infectious Disease laboratory. Correlate with separately reported cytology results, as applicable. Interpretive data last revised 22 Testing performed by: [facility], [address] [place]., [address] Endocervical 09/25/2024 11:3 5 AM CDT 09/26/2024 10:08 AM CDT Narrative CERNER - 09/27/2024 9:32 AM CDT Clinical history and diagnosis->screening Testing type->Screening Last menstrual period (date if known)->postmenopausal Brionna Cevallos MD LAB BODY FLUIDS AND STOOLS ORDERABLES Final Result [facility] [address] [facility] Department [place] [address] [facility] * Pap and High Risk HPV and Genotyping (Cytology Component) (09/25/2024 11:35 AM CDT) Thin prep (Pap test) 09/25/2024 11:35 AM CDT 09/26/2024 2:11 AM CDT Narrative [facility] - 09/30/2024 2:04 PM CDT EPIC results best viewed via link to PDF [facility] [place] [address] [place] [address] Note to Patients: This report may contain a detailed description of human tissue sent by a health care provider to the laboratory for pathologic evaluation. The content of this report is essential for diagnosis and may provide important critical findings. This information may be unfamiliar to patients to review without a medical professional present. It is advised that the patient review this report in the presence of a health care provider who can answer questions and explain the details. CYTOPATHOLOGY REPORT FINAL Patient Name: JAMAR STARR Gender: F : 1955 (Age: 68) Address: [address] [place] [id number] Hospital #: [id number] Service: DEFAULT Location: Patient Type: [facility] SPECIMEN Taken: 09/25/2024 Received: 09/26/2024 Accessioned: 09/26/2024 Reported: 09/30/2024 Physician(s): Daja Cevallos M.D. FINAL INTERPRETATION SOURCE OF SPECIMEN Liquid based Thin Prep pap with HPV: STATEMENT OF ADEQUACY - Satisfactory for evaluation - Endocervical cells/transformation zone sample present GENERAL CATEGORIZATION: - Negative for squamous intraepithelial lesion or malignancy Comments (Normal-Negative for High Risk HPV) HPV HR 16- Not detected HPV HR 18-Not detected HPV HR non 16/18- Not detected Interpretive Data Nucleic acid amplification for detection of high-risk Human Papilloma virus (HPV) is performed by the Zi Raina 6800 HPV test. This assay specifically detects HPV- 16 and HPV-18 genotypes. The following HPV genotypes are detected as high-risk HPV: HPV-31, 33, 35, 39, 45, 51, 52, 56, 58, 59, 66, and 68. This assay has been approved by the [place] Food and Drug Administration for detection of HPV in cervical specimens collected by a physician using an endocervical brush/spatula or cervical broom and placed in the ThinPrep Pap Test PreservCyt collection containers. The performance characteristics of this test have been verified by the [facility] Molecular Infectious Disease laboratory. Correlate with reported cytology results, as applicable. Interpretive data last revised 07/29/22 ml/09/30/2024 14:[address] (ASCP) Report Electronically Reviewed and Signed Out By Rosa Tejeda MS CT (ASCP) 09/30/2024 14:04:22 Cervicovaginal Cytology (Pap Test) Disclaimer: The Pap test is a screening test used to detect cervical cancer and its precursors; it is not a diagnostic procedure. False negative and false positive results do occur. Pap test results should be interpreted in the context of pertinent clinical information and biopsy results as indicated. [facility] Clinical Laboratory Improvement Amendments (CLIA) mandate that cytologic and histologic results be correlated for laboratory quality assistant & improvement standards. FOR ALL HIGH-GRADE CASES we request submission of follow-up histological material and/or reports that have not been previously provided so that we may fulfill said required standards. Gross Description A. Liquid based Thin Prep pap with HPV: Cervical/vaginal - Screening ThinPrep Clinical Diagnosis and History Last Menstrual Period: Not Provided. Menstrual History: Post-menopausal The patient is a 68 year old female with screening. Report Images and scanned documents, if included only viewable in PDF version The performance characteristics of some immunohistochemical stains, in-situ hybridization and fluorescence in-situ hybridization tests and immunophenotyping by flow cytometry cited in this report (if any) were determined by the Surgical Pathology Department at [facility] as part of an ongoing quality control lab tech program and in compliance with federally mandated regulations drawn from the Clinical Laboratory Improvement Act of 1988 (CLIA '88). Some of these tests rely on the use of analyte specific reagents and are subject to specific labeling requirements by the US Food and Drug Administration. Such diagnostic tests may only be performed in a facility that is certified by the Department of Health and Human Services as a high complexity laboratory under CLIA '88. The FDA has determined that such clearance or approval is not necessary. This test is used for clinical purposes. It should not be regarded as investigational or for research. Nevertheless, federal rules concerning the medical use of analyte specific reagents require that the following disclaimer be attached to the report: This test was developed and its performance characteristics determined by the Surgical Pathology Department of [facility]. It has not been cleared or approved by the U. S. Food and Drug Administration. Brionna Cevallos MD LAB CYTOLOGY ORDERABLES Fi nal Result PATHOLOGY [facility] * (ABNORMAL) eGFR (12/23/2022 11:10 AM EXECUTIVE WELLNESS PROGRAMS DIRECTOR) eGFR 52(L) >=60 mL/min/1. 73 m2 [facility] Comment: Interpretive Data Reference Interval Normal >/= [...] reviewed 2020. Blood 12/23/2022 11:1 0 AM EXECUTIVE WELLNESS PROGRAMS DIRECTOR 12/23/2022 12:14 PM EXECUTIVE WELLNESS PROGRAMS DIRECTOR us Ananda Davis MD LAB BLOOD ORDERAB LES Final Result [facility] Department [place] [address] * Serum lipid panel (11/05/2015 11:53 PM [...] Most Recently Relevant to Health Maintenance Insurance IDMT MEDICARE IDMT MEDICARE IDPA Advance Directives For more information, please contact: [phone] * Full Code (Latest Code Status on File) Date Activated Date Inactivated Comments 12/27/2017 9:33 AM 12/28/2017 8:50 PM Care Teams Mastic Man Relationship Specialty Start Date End Date Moshe Zambrano MD [address] [facility] [address] [place] [address] PCP - General Internal Medicine 01/12/24 [place] [id number] [address] Consulting Physician Cardiology 12/28/17
--- OUTSIDE RECORDS SUMMARY | 2024-10-10 10:41 | XMS_ITS | Encounter Summary ---
Author Organization [facility] Healthcare Address [address] [place] [address] Care Team Providers Care Clinical Assistant Name Role Phone Deysi Reno MD Unavailable Moshe Zambrano MD Primary Care Provider [phone] Encounter Details Date Type Department Care Team (Late st Contact Info) Description 09/30/2024 Results Follow-Up [facility] Obstetrical Gynecology [address] [phone] Brionna Cevallos MD [address] [facility] [address] [place] [address] Pap and High Risk HPV and Genotyping (Cytology Component) Social History Tobacco Use Types Packs/Day Years Used Date Smoking Tobacco: Every Day Cigarettes 1 15 Smokeless Tobacco: Never Alcohol Use Standard Drinks/Week Comments Yes 0 (1 standard drink = 0.6 oz pur e alcohol) occassionally Comments No Sex and Gender Information Value Date Recorded Sex Assigned at Not on file Legal Sex Female 6:09 PM 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
--- OUTSIDE RECORDS SUMMARY | 2024-10-10 10:42 | XMS_ITS | Encounter Summary ---
Author Organization [facility] Address [facility] [place] [address] Care Team Providers Care Novelty Candy Maker Name Role Phone Moshe Zambrano MD Primary Care Provider [phone] Encounter Details Date Type Department Care Team (Late st Contact Info) Description 01/10/2024 Prep for Procedure [facility] [place] [address] Karyn Stein MD [address] [facility] [address] [place], [place] [id number] Social History Tobacco Use Types Packs/Day Years [...] (ABNORMAL) URINE BACTERIA CULTURE (01/09/2024 3:33 PM AUTOMOTIVE GENERATOR REPAIRER) SPEC DESCRIPTION URINE CLEAN CATCH 01/10/2024 9:35 AM AUTOMOTIVE GENERATOR REPAIRER [facility] SPECIAL REQUESTS NO SPECIAL REQUEST 01/10/2024 9:35 AM AUTOMOTIVE GENERATOR REPAIRER [facility] CULTURE RESULT 50,000-100,000 COL/ML ESCHERICHIA COLI (A) 01/12/2024 7:13 AM AUTOMOTIVE GENERATOR REPAIRER [facility] CULTURE RESULT 1,000-9,000 COL/ML STREPTOCOCCI, BETA HEMOLYTIC GROUP B SUSCEPTIBILTY NOT ROUTINELY PERFORMED. SAVING ISOLATE FOR 5 DAYS. CONTACT MICROBIOLOGY DEPARTMENT IF FURTHER WORKUP IS INDICATED. (A) 01/12/2024 7:13 AM AUTOMOTIVE GENERATOR REPAIRER [facility] URINE SPECIMEN OBTAINED BY CLEAN CATCH PROCEDURE / Unknown 01/09/2024 3:33 PM AUTOMOTIVE GENERATOR REPAIRER 01/10/2024 9:43 AM AUTOMOTIVE GENERATOR REPAIRER Narrative Organism Antibiotic Method Susceptibility Escherichia coli [...] MICROBIOLOGY - GENERAL ORDERA BLES Final Result [facility] [address] [place] [address], documented in this encounter Visit Diagnoses Diagnosis Lumbar compression fracture (CMS/HCC [facility] Primary Closed fracture of lumbar vertebra without mention of spinal cord injury Abnormal urine findings Other nonspecific finding on examination of urine documented in this encounter Care Teams Novelty Candy Maker Relationship Specialty Start Date End Date Moshe Zambrano MD [address] [place] [address] [address] [place] [address] PCP - General INTERNAL MEDICINE 01/09/24 Deysi Reno Physician CARDIOLOGY 02/06/23 David Reno Physician NEPHROLOGY 02/06/23 documented as of this encounter
--- OUTSIDE RECORDS SUMMARY | 2024-10-10 10:42 | XMS_ITS | Clinical Summary ---
Author Organization [facility] Address [address] [place] [address] Care Team Providers Care Oceanographic Meteorologist Name Role Phone Moshe Zambrano MD Primary Care Provider [phone] Allergies Active Allergy Reactions Criticality Noted Date [...] Take 1 tablet by mouth daily. Active Family History Medical History Relation Comments Diabetes [...] Comments Blood Pressure 112/53 01/09/2024 2:23 PM BLANKET MAKER Pulse 80 01/09/2024 2:23 PM BLANKET MAKER Temperature - - Respiratory Rate 20 01/09/2024 2:23 PM BLANKET MAKER Oxygen Saturation 99% 01/09/2024 2:23 PM BLANKET MAKER Inhaled Oxygen Concentration - - Weight 69.4 kg (153 lb) 02/26/2024 2:16 PM BLANKET MAKER Height 152.4 cm (5') 02/26/2024 2:16 PM BLANKET MAKER Body Mass Index 29.88 02/26/2024 2:16 PM BLANKET MAKER Plan of Treatment Health Maintenance Due Date [...] Zoster Vaccines Completed 06/08/2021, 04/06/2021 Pneumococcal Vaccine: 50+ Years Completed 07/26/2022, 02/12/2020, 02/12/2018, Additional history exists RSV Immunization or 60+ Years Completed 11/03/2022 Meningococcal B Vaccine Aged Out No l onger eligible based on patient's age to complete this topic Meningococcal Vaccine Aged Out No richard phyllis eligible based on patient's age to complete this topic RSV Immunizations Under 20 Months Aged Out No longer eligible based on patient's age to complete this topic Medical Devices Implanted Type Area Die Sinking Machine Operator Device Identifier Shelf Expiration Date Model / Serial / Lot Icd-02/08/2021 Implanted:2021 (Quantity not on file) ICD [employer] Insurance MEDICARE MEDICAID Care Teams Oceanographic Meteorologist Relationship Specialty Start Date End Date Moshe Zambrano MD [address] [facility] [address] [place] [address] PCP - General INTERNAL MEDICINE 01/09/24 Deysi Reno Physician CARDIOLOGY 02/06/23 David Reno Physician NEPHROLOGY 02/06/23
--- OUTSIDE RECORDS SUMMARY | 2024-10-10 10:42 | XMS_ITS | Encounter Summary ---
Author Organization [facility] Address [address] [facility] [place] [address] Care Team Providers Care Relief Driller Name Role Phone Kady Singh MD Primary Care Provider [phone] Moshe Zambrano MD Primary Care Provider [phone] Reason for Visit * Reason Onset Date Comments Pre-op Instructions 04/24/2023 Encounter Details Date Type Department Care Team (Late st Contact Info) Description 04/24/2023 Patient Outreach [facility] ENDOSCOPY [address] [place] [phone] Luz Jones RN Pre-op Instructions Social History Tobacco Use Types Packs/Day Years Used Date Smoking Tobacco: Every Day Cigarettes 0.5 56 Smokeless Tobacco: Never Alcohol Use Standard Drinks/Week Comments No 0 (1 standard drink = 0.6 oz pur e alcohol) Comments No Sex and Gender Information Value Date Recorded Sex Assigned at Not on file Legal Sex Female 4:21 AM FUGITIVE INVESTIGATOR Gender Identity Not on file Sexual Orientation Not on file documented as of this encounter Functional Status * Is person deaf or have serious hearing difficulty? Answer Date of Assessment Author No 07/14/2022 11:27 AM Karl Berg RN * Is person blind or have serious difficulty seeing? Answer Date of Assessment Author No 07/14/2022 11:27 AM Karl Berg RN * Does person have serious difficulty walking/climbing stairs? Answer Date of Assessment Author No 07/14/2022 11:27 AM CDT Karl Brasher RN * Does person have difficulty dressing/bathing? Answer Date of Assessment Author No 07/14/2022 11:27 AM CDT Karl Brasher RN * Does person have difficulty doing errands alone? Answer Date of Assessment Author No 07/14/2022 11:27 AM DAMIENT Karl Brasher RN documented as of this encounter Mental Status * Does person have difficulty concentrating/remembering/making decisions? Answer Entry Date Author No 07/14/2022 11:27 AM CDT Karl Brasher RN documented in this encounter Plan of Treatment Upcoming Encounters Date Type Department Care Team (Latest Contact Info) Description 12/25/2024 10:15 AM FUGITIVE INVESTIGATOR Appointment [facility] US [address] [place] [address] Wayne Vasquez MD [address] [place] [address] [address] [place] [address] 12/25/2024 1:00 PM FUGITIVE INVESTIGATOR Hospital Encounter [facility] ENDOSCOPY [address] [place] [address] Melody Fernandez MD [address] [place] [phone] Surgery General 12/25/2024 1:00 PM FUGITIVE INVESTIGATOR - 12/25/2024 1:45 PM FUGITIVE INVESTIGATOR Surgery [facility] ENDOSCOPY [address] [place] [address] Melody Fernandez MD [address] [place] [address] COLONOSCOPY SCREEN--2 day prep with lakesha bowles/ jed. prior. labs also 05/12/2025 10:00 AM CDT [facility] [address] [place] [address], [place] [address] Wayne Vasquez MD [address] [place] [address] [address] [place] [address] Scheduled Procedures Name Priority Associated Diagnoses Date/Ti me COLONOSCOPY SCREEN History of adenomatous polyp of colon 12/25/2024 1:00 PM FUGITIVE INVESTIGATOR documented as of this encounter Goals Goal [...] on filedocumented in this encounter Care Teams Relief Driller Relationship Specialty Start Date End Date Kady Singh MD [address] [place] [address] [place] [phone] PCP - General Family Medicine 04/18/22 05/26/24 Moshe Zambrano MD [address] [place] [address] [address] [place] [address] PCP - General Internal Medicine 05/27/24 documented as of this encounter
--- OUTSIDE RECORDS SUMMARY | 2024-10-10 10:42 | XMS_ITS | Clinical Summary ---
Author Organization [facility] Address [address] [place] [address] Phone Care Team Providers Care Director Of Casework Services Name Role Phone Unavailable Primary Care Provider [...] 2004 OSTEOPOROSIS SCREENING 12/15/2019 INFLUENZA VACCINE (#1) 2024 RSV VACCINE (60+ or ) (1 - 1-dose 75+ series) 2029 Insurance RX [employer] Medicare Part D RX [employer]
== END 2024-10-10 10:08 | disposition home or self-care (01) ==
PROVIDERS: PCP Internal Medicine; Visit Provider Neurological Surgery
DX: S32.011D Stable burst fracture of first lumbar vertebra, subsequent encounter for fracture with routine healing (principal); X58.XXXD Exposure to other specified factors, subsequent encounter; M51.34 Other intervertebral disc degeneration, thoracic region; M47.896 Other spondylosis, lumbar region
CPT/HCPCS: 72072; 72110

== ENCOUNTER 2024-10-24 03:25 | Emergency (ER) | payer MEDICARE, MEDICAID, SELFPAY ==
--- OUTSIDE RECORDS SUMMARY | 2023-06-23 10:30 | XMS_ITS ---
Author Organization [facility] Office Address [address] [facility] [address] [facility] [address] [place] [address] Care Team Providers Care Goods Layer Name Role Phone Rowdy David Unavailable [phone] Medications Medication SIG (Take, Route, Frequency, Duration) Notes Start Date End Date Status Vitamin D (Ergocalciferol) 1.25 MG (61107 UT) TAKE 1 CAPSULE BY MOUTH ONE TIME PER WEEK FOR 90 DAYS; Duration: 90 Active Allopurinol 100 MG TAKE 1 TABLET BY GERMAN TH EVERY DAY; Duration: 90 Active Calcitriol 0.25 MCG TAKE 1 CAPSULE BY MO UTH EVERY DAY; Duration: 90 Active Losartan Potassium 50 MG 1 tablet Orally Once a day; Duration: 90 05/20/2022 Active Encounters Encounter Location Date Provider Diagnosis [facility] [address] [facility] [address] [place] [address] 06/23/2023 David Reno Chronic kidney disease, stage 2 (mild) N18.2 ; Essential hypertension I10 ; Type 2 diabetes mellitus with hyperglycemia E11.65 ; Hyperlipidemia, unspecified E78.5 ; Abnormal metabolic state due to diabetes mellitus E11.9 ; Hypothyroidism, unspecified E03.9 and Tobacco use Z72.0 Assessments Encounter Date Diagnosis (ICD Code) Assessment Notes Treatment Notes Treatment Clinical Notes Section Notes 06/23/2023 Chronic kidney disease, stage 2 (mild) (ICD-10 - N18.2) 06/23/2023 Essential hypertension (ICD-10 - I10) 06/23/2023 Type 2 diabetes mellitus with hyperglycemia (ICD-10 - E11.65) 06/23/2023 Hyperlipidemia, unspecified (ICD-10 - E78.5) 06/23/2023 Abnormal metabolic state due to diabetes mellitus (ICD-10 - E11.9) 06/23/2023 Hypothyroidism, unspecified (ICD-10 - E03.9) 06/23/2023 Tobacco use (ICD-10 - Z72.0) Plan Of Treatment Next Appt Details Provider Name:David Rowdy , 12/13/2024 05:00:00 PM, [address] [facility], [address], [place], [address], Progress Notes * ZEYNEP MOOREADOB: (68 yo F)Acc No.[id number]:06/23/2023 Progress Notes Patient: JAMAR REYNOSO Provider: Nayely MART MD, F.A.C.P, F.A.S.N. :1955 A ge:67 Y S ex:Female Date:06/23/2023 Address:[address] [place] [address] Subjective: * Chief Complaints: * * Medical History: * Medications: T aking Allopurinol 100 MG Tablet TAKE 1 TABLET BY MOUTH EVERY DAY , Taking Vitamin D (Ergocalciferol) 1.25 MG (03051 UT) Capsule TAKE 1 CAPSULE BY MOUTH ONE TIME PER WEEK FOR 90 DAYS , Taking Losartan Potassium 50 MG Tablet 1 tablet Orally Once a day , Taking Calcitriol 0.25 MCG Capsule TAKE 1 CAPSULE BY MOUTH EVERY DAY Objective: * Vitals: Assessment: * Assessment: 1. C hronic kidney disease, stage 2 (mild) - N18.2 2 . E ssential hypertension - I10 3 . T ype 2 diabetes mellitus with hyperglycemia - E11.65 ?4. H yperlipidemia, unspecified - E78.5 5 . A bnormal metabolic state due to diabetes mellitus - E11.9 6 . H ypothyroidism, unspecified - E03.9 ? 7 . T obacco use - Z72.0 Plan: * Treatment: * Billing Information: * Visit Code: 92290 Office Visit, Est Pt., Level 4. * Procedure Codes: * Electronic signature of Demetrius Reno MD on 10/24/2024 at 03:27 AM CDT Sign off status: Pending * Provider: Nayely MART MD, F.A.C.P, F.A.S.N. Date: 0 06/23/2023 Generated for Printing/Faxing/eTransmitting on: 0 10/24/2024 03:27 AM CDT
--- OUTSIDE RECORDS SUMMARY | 2023-10-20 10:30 | XMS_ITS ---
Author Organization [facility] Office Address [address] [place] [address] Care Team Providers Care Assembler Final Name Role Phone David Reno Unavailable [phone] Medications Medication SIG (Take, Route, Frequency, Duration) Notes Start Date End Date Status Calcitriol 0.25 MCG TAKE 1 CAPSULE BY MO UTH EVERY DAY; Duration: 90 Active Allopurinol 100 MG TAKE 1 TABLET BY GERMAN TH EVERY DAY; Duration: 90 Active Losartan Potassium 50 MG 1 tablet Orally Once a day; Duration: 90 05/20/2022 Active Vitamin D (Ergocalciferol) 1.25 MG (18920 UT) TAKE 1 CAPSULE BY MOUTH ONE TIME PER WEEK FOR 90 DAYS; Duration: 90 Active Problems Problem Type SNOMED Code ICD Code Onset Dates Problem Status W/U Status Risk Notes Problem Renal osteodystrophy (25108856) Renal osteodystrophy (N25.0) Active confirmed Encounters Encounter Location Date Provider Diagnosis [place] [facility] [address] [facility] [address] [place] [address] 10/20/2023 David Reno Chronic kidney disea se, stage 3 unspecified N18.30 ; Essential hypertension I10 ; Renal osteodystrophy N25.0 ; Type 2 diabetes mellitus with hyperglycemia E11.65 ; Hyperlipidemia, unspecified E78.5 ; Abnormal metabolic state due to diabetes mellitus E11.9 ; Hypothyroidism, unspecified E03.9 and Tobacco use Z72.0 Assessments Encounter Date Diagnosis (ICD Code) Assessment Notes Treatment Notes Treatment Clinical Notes Section Notes 10/20/2023 Chronic kidney disease, stage 3 unspecified (ICD-10 - N18.30) 10/20/2023 Essential hypertension (ICD-10 - I10) 10/20/2023 Renal osteodystrophy (ICD-10 - N25.0) 10/20/2023 Type 2 diabetes mellitus with hyperglycemia (ICD-10 - E11.65) 10/20/2023 Hyperlipidemia, unspecified (ICD-10 - E78.5) 10/20/2023 Abnormal metabolic state due to diabetes mellitus (ICD-10 - E11.9) 10/20/2023 Hypothyroidism, unspecified (ICD-10 - E03.9) 10/20/2023 Tobacco use (ICD-10 - Z72.0) Plan Of Treatment Next Appt Details Provider Name:David Rowdy , 12/13/2024 05:00:00 PM, [address] [facility] [address], [place], [address], Progress Notes * TERESA ISIAHB: (68 yo F)Acc No.[id number]:10/20/2023 Progress Notes Patient: JAMAR REYNOSO Provider: Nayely MART MD, F.A.C.P, F.A.S.N. :1955 A ge:67 Y S ex:Female Date:10/20/2023 Address:[address] [place] [address] Subjective: * Chief Complaints: * * Medical History: * Medications: T aking Allopurinol 100 MG Tablet TAKE 1 TABLET BY MOUTH EVERY DAY , Taking Losartan Potassium 50 MG Tablet 1 tablet Orally Once a day , Taking Calcitriol 0.25 MCG Capsule TAKE 1 CAPSULE BY MOUTH EVERY DAY , Taking Vitamin D (Ergocalciferol) 1.25 MG (59167 UT) Capsule TAKE 1 CAPSULE BY MOUTH ONE TIME PER WEEK FOR 90 DAYS Objective: * Vitals: Assessment: * Assessment: 1. C hronic kidney disease, stage 3 unspecified - N18.30 2 . E ssential hypertension - I10 3 . R enal osteodystrophy - N25.0 4 . T ype 2 diabetes mellitus with hyperglycemia - E11.65 5 . H yperlipidemia, unspecified - E78.5 6 . A bnormal metabolic state due to diabetes mellitus - E11.9 ? 7 . H ypothyroidism, unspecified - E03.9 8 . T obacco use - Z72.0? Plan: * Treatment: * Billing Information: * Visit Code: 54234 Office Visit, Est Pt., Level 4. * Procedure Codes: * Electronic signature of Demetrius Reno MD on 10/24/2024 at 03:27 AM CDT Sign off status: Pending * Provider: Nayely MART MD, F.A.C.P, F.A.S.N. Date: 10/20/2023 Generated for Printing/Faxing/eTransmitting on: 10/24/2024 03:27 AM CDT
--- OUTSIDE RECORDS SUMMARY | 2024-01-12 11:00 | XMS_ITS ---
Author Organization [facility] Address [address] [facility] [address] [facility] [address] [place] [address] Care Team Providers Care Match Up Worker Name Role Phone David Reno Unavailable [phone] Medications Medication SIG (Take, Route, Frequency, Duration) Notes Start Date End Date Status Allopurinol 100 MG TAKE 1 TABLET BY GERMAN TH EVERY DAY; Duration: 90 Active Calcitriol 0.25 MCG TAKE 1 CAPSULE BY MO UTH EVERY DAY; Duration: 90 Active Losartan Potassium 50 MG 1 tablet Orally Once a day; Duration: 90 05/20/2022 Active Vitamin D (Ergocalciferol) 1.25 MG (80432 UT) TAKE 1 CAPSULE BY MOUTH ONE TIME PER WEEK FOR 90 DAYS; Duration: 90 Active Encounters Encounter Location Date Provider Diagnosis [place] [facility] [address] [facility] [address] [place] [address] 01/12/2024 David Reno Chronic kidney disea se, stage 2 (mild) N18.2 ; Essential hypertension I10 ; Type 2 diabetes mellitus with hyperglycemia E11.65 ; Tobacco use Z72.0 ; Hyperlipidemia, unspecified E78.5 ; Hypothyroidism, unspecified E03.9 and Renal osteodystrophy N25.0 Assessments Encounter Date Diagnosis (ICD Code) Assessment Notes Treatment Notes Treatment Clinical Notes Section Notes 01/12/2024 Chronic kidney disease, stage 2 (mild) (ICD-10 - N18.2) 01/12/2024 Essential hypertension (ICD-10 - I10) 01/12/2024 Type 2 diabetes mellitus with hyperglycemia (ICD-10 - E11.65) 01/12/2024 Tobacco use (ICD-10 - Z72.0) 01/12/2024 Hyperlipidemia, unspecified (ICD-10 - E78.5) 01/12/2024 Hypothyroidism, unspecified (ICD-10 - E03.9) 01/12/2024 Renal osteodystrophy (ICD-10 - N25.0) Plan Of Treatment Next Appt Details Provider Name:David Reno , 12/13/2024 05:00:00 PM, [address], [place], [address], Progress Notes * ZEYNEP MOOREADOB: 5 (68 yo F)Acc No.[id number]:01/12/2024 Progress Notes Patient: JAMAR REYNOSO Provider: Nayely MART MD, F.A.C.P, F.A.S.N. :1955 A ge:68 Y S ex:Female Date:01/12/2024 Address:[address] [place] [address] Subjective: * Chief Complaints: * * Medical History: * Medications: T aking Allopurinol 100 MG Tablet TAKE 1 TABLET BY MOUTH EVERY DAY , Taking Losartan Potassium 50 MG Tablet 1 tablet Orally Once a day , Taking Calcitriol 0.25 MCG Capsule TAKE 1 CAPSULE BY MOUTH EVERY DAY , Taking Vitamin D (Ergocalciferol) 1.25 MG (72033 UT) Capsule TAKE 1 CAPSULE BY MOUTH ONE TIME PER WEEK FOR 90 DAYS Objective: * Vitals: Assessment: * Assessment: 1. C hronic kidney disease, stage 2 (mild) - N18.2 (Primary) 2 . E ssential hypertension - I10 3 . T ype 2 diabetes mellitus with hyperglycemia - E11.65? 4. T obacco use - Z72.0 5 . H yperlipidemia, unspecified - E78.5 6 . H ypothyroidism, unspecified - E03.9 7 . R enal osteodystrophy - N25.0 Plan: * Treatment: * Billing Information: * Visit Code: 83971 Office Visit, Est Pt., Level 4. * Procedure Codes: * Electronic signature of Demetrius Reno MD on 10/24/2024 at 03:27 AM CDT Sign off status: Pending * Provider: Nayely MART MD, F.Cyndie.C.P, F.A.S.N. Date: 03/14/2023 Generated for Printing/Faxing/eTransmitting on: 0 10/24/2024 03:27 AM CDT
--- OUTSIDE RECORDS SUMMARY | 2024-05-17 10:30 | XMS_ITS ---
Author Organization [facility] Address [address] [place] [address] Care Team Providers Care Communications Clerk Name Role Phone David Reno Unavailable [phone] Problems Problem Type SNOMED Code ICD Code Onset Dates Problem Status W/U Status Risk Notes Problem Hypo-osmolality and or hyponatremia (039176978) Hypo-osmolality and hyponatremia (E87.1) Active confirmed Encounters Encounter Location Date Provider Diagnosis [place] [facility] [address] [facility] [address] [place] [address] 05/17/2024 David Reno Chronic kidney disea se, stage 3 unspecified N18.30 ; Essential hypertension I10 ; Type 2 diabetes mellitus with hyperglycemia E11.65 ; Hyperlipidemia, unspecified E78.5 ; Abnormal metabolic state due to diabetes mellitus E11.9 ; Hypothyroidism, unspecified E03.9 ; Tobacco use Z72.0 ; Renal osteodystrophy N25.0 and Hypo-osmolality and hyponatremia E87.1 Assessments Encounter Date Diagnosis (ICD Code) Assessment Notes Treatment Notes Treatment Clinical Notes Section Notes 05/17/2024 Chronic kidney disease, stage 3 unspecified (ICD-10 - N18.30) 05/17/2024 Essential hypertension (ICD-10 - I10) 05/17/2024 Type 2 diabetes mellitus with hyperglycemia (ICD-10 - E11.65) 05/17/2024 Hyperlipidemia, unspecified (ICD-10 - E78.5) 05/17/2024 Abnormal metabolic state due to diabetes mellitus (ICD-10 - E11.9) 05/17/2024 Hypothyroidism, unspecified (ICD-10 - E03.9) 05/17/2024 Tobacco use (ICD-10 - Z72.0) 05/17/2024 Renal osteodystrophy (ICD-10 - N25.0) 05/17/2024 Hypo-osmolality and hyponatremia (ICD-10 - E87.1) Plan Of Treatment Next Appt Details Provider Name:David Reno , 12/13/2024 05:00:00 PM, [address], [address], [place], [address], Progress Notes * ZEYNEP MOOREADOB: (68 yo F)Acc No.[id number]:05/17/2024 Progress Notes Patient: JAMAR REYNOSO Provider: Nayely MART MD, F.A.C.P, F.A.S.N. :1955 A ge:68 Y S ex:Female Date:05/17/2024 Address:[address] [place] [address] Subjective: * Chief Complaints: * * Medical History: Objective: * Vitals: Assessment: * Assessment: 1. C hronic kidney disease, stage 3 unspecified - N18.30 (Primary) 2 . E ssential hypertension - I10 3 . T ype 2 diabetes mellitus with hyperglycemia - E11.65 4 . H yperlipidemia, unspecified - E78.5 5 . A bnormal metabolic state due to diabetes mellitus - E11.9 6 . H ypothyroidism, unspecified - E03.9 7 . T obacco use - Z72.0 8 . R enal osteodystrophy - N25.0 9 . H ypo-osmolality and hyponatremia - E87.1 Plan: * Treatment: * Billing Information: * Visit Code: 80710 Office Visit, Est Pt., Level 4. * Procedure Codes: * Electronic signature of Demetrius Reno MD on 10/24/2024 at 03:27 AM CDT Sign off status: Pending * Provider: Nayely MART MD, F.A.C.P, F.A.S.N. Date: 0 05/17/2024 Generated for Printing/Faxing/eTransmitting on: 0 10/24/2024 03:27 AM CDT
--- OUTSIDE RECORDS SUMMARY | 2024-09-06 11:00 | XMS_ITS ---
Author Organization [facility] Address [address] [place] [address] Care Team Providers Care Irrigationist Name Role Phone David Reno Unavailable [phone] Problems Problem Type SNOMED Code ICD Code Onset Dates Problem Status W/U Status Risk Notes Problem Chronic kidney disease stage 3A (disorder) (299253558) Chronic kidney disease, stage 3a (N18.31) Active confirmed Encounters Encounter Location Date Provider Diagnosis [place] [facility] [address] [facility] 15 [place] [address] 09/06/2024 David Reno Chronic kidney disea se, stage 3a N18.31 ; Essential hypertension I10 ; Type 2 diabetes mellitus with hyperglycemia E11.65 ; Hyperlipidemia, unspecified E78.5 ; Abnormal metabolic state due to diabetes mellitus E11.9 ; Hypothyroidism, unspecified E03.9 ; Tobacco use Z72.0 ; Renal osteodystrophy N25.0 and Hypo-osmolality and hyponatremia E87.1 Assessments Encounter Date Diagnosis (ICD Code) Assessment Notes Treatment Notes Treatment Clinical Notes Section Notes 09/06/2024 Chronic kidney disease, stage 3a (ICD-10 - N18.31) 09/06/2024 Essential hypertension (ICD-10 - I10) 09/06/2024 Type 2 diabetes mellitus with hyperglycemia (ICD-10 - E11.65) 09/06/2024 Hyperlipidemia, unspecified (ICD-10 - E78.5) 09/06/2024 Abnormal metabolic state due to diabetes mellitus (ICD-10 - E11.9) 09/06/2024 Hypothyroidism, unspecified (ICD-10 - E03.9) 09/06/2024 Tobacco use (ICD-10 - Z72.0) 09/06/2024 Renal osteodystrophy (ICD-10 - N25.0) 09/06/2024 Hypo-osmolality and hyponatremia (ICD-10 - E87.1) Plan Of Treatment Next Appt Details Provider Name:David Reno , 12/13/2024 05:00:00 PM, [address] [facility], [address], [place], [address], Progress Notes * ZEYNEP MOOREADOB: (68 yo F)Acc No.[id number]:09/06/2024 Progress Notes Patient: JAMAR REYNOSO Provider: Nayely MART MD, F.A.C.P, F.A.S.N. :1955 A ge:68 Y S ex:Female Date:09/06/2024 Address:[address] [place] [address] Subjective: * Chief Complaints: Objective: Assessment: * Assessment: 1. C hronic kidney disease, stage 3a - N18.31 (Primary) 2 . E ssential hypertension - I10 3 . T ype 2 diabetes mellitus with hyperglycemia - E11.65 ? 4 . H yperlipidemia, unspecified - E78.5 5 . A bnormal metabolic state due to diabetes mellitus - E11.9 6 . H ypothyroidism, unspecified - E03.9? 7. T obacco use - Z72.0 8 . R enal osteodystrophy - N25.0? 9. H ypo-osmolality and hyponatremia - E87.1 Plan: * Billing Information: * Visit Code: 44151 Office Visit, Est Pt., Level 4. * Procedure Codes: * Electronic signature of Demetrius Reno MD on 10/24/2024 at 03:27 AM CDT Sign off status: Pending * Provider: Nayely MART MD, F.A.C.P, F.A.S.N. Date: 09/06/2024 Generated for Printing/Faxing/eTransmitting on: 10/24/2024 03:27 AM CDT
[2024-10-24] VITALS (10 sets, daily range): BP systolic 138; BP diastolic 57; PULSE 82–89; RESP 11–22; TEMP 36.4; O2SAT 94–99
--- NOTE | ~2024-10-24 | CT_ITS ---
EXAMINATION: CT chest abdomen pelvis wo con DATE: 10/24/2024 04:15 INDICATION: Back pain. Fall. TECHNIQUE: Computed tomography (CT) of the chest, abdomen, and pelvis was performed without intravenous contrast. Automated exposure control and iterative reconstruction technique were employed. The dose-length product was 1132.01 mGy-cm. COMPARISON: CT abdomen and pelvis 03/19/2023 FINDINGS: CHEST CT: There is chronic diffuse peripheral septal thickening lungs. No pleural effusion. The heart size is normal. There are coronary artery calcifications. There is a small pericardial effusion measuring greater than simple fluid attenuation, likely an exudate. The main pulmonary artery is enlarged, consiste nt with pulmonary arterial hypertension. There is a left chest wall pacer with leads in the right atrium and right ventricle. There is severe cervical spondylosis and mild thoracic spondylosis. ABDOMEN/PELVIS CT: There is liver surface nodularity, consistent with cirrhosis. There are changes of cholecystectomy. The spleen, pancreas, adrenal glands, and left kidney are normal. There is a 2 mm stone in right kidney. There is diverticulosis of the colon without evidence of diverticulitis. The appendix is normal. There are no dilated loops of bowel. There are no pathologically enlarged lymph nodes. There is no free intraperitoneal fluid. There is a total right hip arthroplasty. There is severe left hip osteoarthritis. There is severe lumbar spondylosis. There is a chronic burst fracture of L1. IMPRESSION: 1. Small pericardial effusion, likely an exudate. 2. Mild chronic interstitial lung disease. 3. Cirrhosis of the liver. Reviewed, dictated and finalized at location E.
--- NOTE | ~2024-10-24 | CT_ITS ---
EXAMINATION: CT brain wo con DATE: 10/24/2024 04:12 INDICATION: Head injury. Fall. TECHNIQUE: Computed tomography (CT) of the head was performed without intravenous contrast. The mA was adjusted according to patient size. Iterative reconstruction technique was employed. The dose-length product was 681.00 mGy-cm. COMPARISON: None FINDINGS: There are scattered areas of low attenuation in the cerebral white matter, which is within normal limits for the patient's age. There is no intracranial hemorrhage, acute infarction, or abnormal intracranial mass lesion. The ventricles are normal in size. The orbits are normal. There is mucosal thickening in the paranasal sinuses. There is thickening and sclerosis of the douglass of right sphenoid sinus, consistent with chronic sinusitis. The mastoid air cells are normal. IMPRESSION: 1. Normal aging brain. 2. Chronic sinusitis. Reviewed, dictated and finalized at location E.
--- NOTE | ~2024-10-24 | CT_ITS ---
EXAMINATION: CT cervical spine wo con COMPARISON: None HISTORY: fall 1 week ago, pain TECHNIQUE: Axial images were obtained through the spine without IV contrast. Coronal, sagittal reconstruction images were obtained from the axial views. CT scan performed using dose optimization techniques including the following automated exposure control; adjustment of mA and/or kV; use of iterative reconstruction technique. Automatic exposure control was used to reduce radiation dose. Permanent radiation dose record is archived to PACS. FINDINGS: Grade 1 anterolisthesis of C4 on C5 and C7 on T1, no fracture is identified. Severe loss of disc height at C5-6 with moderate to severe canal and foraminal stenosis, outpatient MRI is recommended Soft tissues unremarkable. Impression: No acute abnormality. Reviewed, dictated and finalized at location A. Impression: No acute abnormality.
--- OUTSIDE RECORDS SUMMARY | 2024-10-24 03:27 | XMS_ITS | Encounter Summary ---
Author Organization [facility] Address [address] [place] [address] Care Team Providers Care Supplier Specialist Name Role Phone Kady Singh MD Primary Care Provider [phone] Moshe Zambrano MD Primary Care Provider [phone] Encounter Details Date Type Department Care Team (Late st Contact Info) Description 06/16/2023 Telephone [facility] - Dermatology [address] [facility], [facility] [place] [address] Mayra Louis, [address] [place] [address] Social History Tobacco Use Types Packs/Day Years Used Date Smoking Tobacco: Every Day Cigarettes 0.5 56 Smokeless Tobacco: Never Alcohol Use Standard Drinks/Week Comments No 0 (1 standard drink = 0.6 oz pur e alcohol) Comments No Sex and Gender Information Value Date Recorded Sex Assigned at Not on file Legal Sex Female 4:21 AM WAFER CUTTER Gender Identity Not on file Sexual Orientation [...] No 05/11/2023 2:00 PM CDT Hattie Steen, ANGEL * Does person have difficulty dressing/bathing? Answer Date of Assessment Author No 05/11/2023 2:00 PM CDT Hattie Steen RN * Does person have difficulty doing errands alone? Answer Date of Assessment Author No 05/11/2023 2:00 PM CDT Hattie Steen, RN documented as of this encounter Mental Status * Does person have difficulty concentrating/remembering/making decisions? Answer Entry Date Author No 05/11/2023 2:00 PM CDT Hattie Steen RN documented in this encounter Miscellaneous Notes * Telephone Encounter - Debo Sanchez - 06/16/2023 10:41 AM CDT Current Provider: Reason for Call: medicare doesn't cover pressure socks....needing doc office to call DME for [place] Medicaid to see if they will cover the pressure socks Patient Call Back Number: [phone] documented in this encounter Plan of Treatment Upcoming Encounters Date Type Department Care Team (Latest Contact Info) Description 12/25/2024 10:15 AM WAFER CUTTER Appointment [facility] US [address] [place] [address] Wayne Vasquez MD [address] [place] [address] 12/25/2024 1:00 PM WAFER CUTTER Hospital Encounter [facility] ENDOSCOPY [address] [place] [phone] Melody Fernandez MD [address] [place] [phone] Surgery General 12/25/2024 1:00 PM WAFER CUTTER - 12/25/2024 1:45 PM WAFER CUTTER Surgery [facility] [address] [place] [address] Melody Fernandez MD [address] [place] [address] COLONOSCOPY SCREEN--2 day prep with suprep w/ jed. US prior. labs also 05/12/2025 10:00 AM CDT Office Visit [facility] - GI [address] [facility], [place] [address] Wayne Vasquez MD [address] [facility] [address] DIV [place] [address] Scheduled Procedures Name Priority Associated Diagnoses Date/Ti me COLONOSCOPY SCREEN History of adenomatous polyp of colon 12/25/2024 1:00 PM WAFER CUTTER documented as of this encounter Goals Goal [...] on filedocumented in this encounter Care Teams Supplier Specialist Relationship Specialty Start Date End Date Kady Singh MD [address] [place] [address] [place] [address] PCP - General Family Medicine 04/18/22 05/26/24 Moshe Zambrano MD [address] [place] [address] [address] [place] [address] PCP - General Internal Medicine 05/27/24 documented as of this encounter
--- OUTSIDE RECORDS SUMMARY | 2024-10-24 03:27 | XMS_ITS | Encounter Summary ---
Author Organization [facility] Address [address] [facility] [place] [address] Care Team Providers Care Beam House Inspector Name Role Phone Sue Michel Primary Care Provider + Kady Singh MD Primary Care Provider [phone] Moshe Zambrano MD Primary Care Provider Reason for Visit * Reason Onset Date Comments MEDICATION REFILL 11/04/2019 Encounter Details Date Type Department Care Team (Late st Contact Info) Description 11/04/2019 Refill [facility] Dermatology [address] [place] [address] Adrienne Box MD No Information available MEDICATION REFILL Social History Tobacco Use Types Packs/Day Years Used Date Smoking Tobacco: Some Days Cigarettes Smokeless Tobacco: Never Alcohol Use Standard Drinks/Week Comments No 0 (1 standard drink = 0.6 oz pur e alcohol) occ Comments No Sex and Gender Information Value Date Recorded Sex Assigned at Not on file Legal Sex Female 4:21 AM SCISSORS GRINDER Gender Identity Not on file Sexual Orientation Not on file documented as of this encounter Miscellaneous Notes * Telephone Encounter - Annalisa Vargas - 11/04/2019 4:57 PM CDT [place] 12/03/18 No follow up Annalisa Vargas MA documented in this encounter Plan of Treatment Upcoming Encounters Date Type Department Care Team (Latest Contact Info) Description 12/25/2024 10:15 AM SCISSORS GRINDER Appointment [place] [address] [place] [phone] Wayne Vasquez MD [address] [place] [address] [address] [place] [address] 12/25/2024 1:00 PM SCISSORS GRINDER Hospital Encounter [facility] END[facility]COPY [address] [place] [phone] Melody Fernandez MD [address] [place] [address] Surgery General 12/25/2024 1:00 PM SCISSORS GRINDER - 12/25/2024 1:45 PM SCISSORS GRINDER Surgery [facility]COPY [address] [place] [phone] Melody Fernandez MD [facility] [place] [address] COLONOSCOPY SCREEN--2 day prep with suprep w/ jed. US prior. labs also 05/12/2025 10:00 AM CDT Office Visit [facility] - GI [address] [place] [address], [place] [address] Wayne Vasquez MD [address] [place] [address] [address] [place] [address] Scheduled Procedures Name Priority Associated Diagnoses Date/Ti me COLONOSCOPY SCREEN History of adenomatous polyp of colon 12/25/2024 1:00 PM SCISSORS GRINDER documented as of this encounter Visit Diagnoses Not on filedocumented in this encounter Care Teams Beam House Inspector Relationship Specialty Start Date End Date Sue Michel APRN-MATERIAL CARRIER [address] [address] PCP - General 09/12/19 04/17/22 Kady Singh MD [address] [place] [address] [place] [address] PCP - General Family Medicine 04/18/22 05/26/24 Moshe Zambrano MD [address] [place] [address] PCP - General Internal Medicine 05/27/24 documented as of this encounter
--- OUTSIDE RECORDS SUMMARY | 2024-10-24 03:28 | XMS_ITS | Clinical Summary ---
Author Organization [facility] Address [address] [place] [address] Care Team Providers Care Psychometric Examiner Name Role Phone Deysi Reno MD Unavailable Moshe Zambrano MD Primary Care Provider [phone] Allergies Active Allergy Reactions Criticality Noted Date [...] positive for diabetic neuropathy. Jamar sees a hair specialist regularly for foot care. Discussed regular foot care with her to prevent and identify any irregularities on the soles of the feet or on and between the toes. Jamar encouraged to utilize a mirror for better view of the soles of the feet if needed. Advised member to discuss with the PCP the services of a hair specialist. 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 Stress incontinence of urine 12/24/2018 Osteoarthritis 12/24/2018 [...] Department Care Team Description 09/30/2024 Results Follow-Up [facility] Obstetrical Gynecology [address] [facility] [address] [place] [phone] Brionna Cevallos MD Pap and High Risk HPV and Genotyping (Cytology Component) 09/25/2024 4:29 PM CDT - 09/25/2024 11:59 PM CDT Hospital Encounter [facility] Lab [address] [place] [address] Well woman exam Discharge Disposition: Discharge to home or self care 09/25/2024 11:15 AM CDT Office Visit [facility] Obstetrical Gynecology [address] [facility] [address] [place] [phone] Brionna Cevallos MD Well woman exam (Primary Dx); Feeling of incomplete bladder emptying from Last 3 Months Immunizations Immunization Administration Dates Next Due Influenza, Quadrivalent, Hig h Dose, Preservative Free, Intrr 11/04/2020 Influenza, Quadrivalent, Spl it, Intramuscular 11/21/2018,10/30/2018,11/07/2017,11/11 Influenza, Quadrivalent, Spl it, Preservative Free, Intramuscular 09/22/2019 Influenza, Trivalent, IM (MDV) 11/06/2014 Influenza, Unspecified 11/07/2023,2022,10/16/2021,11/05,10/30/2018,11/07/2017,11/06/2015 [employer] ([employer]) SARS-CoV-2 Vaccination 03/19/2020 Pfizer SARS-CoV-2 Monovalent [...] on file Legal Sex Female 6:09 PM BLAST FURNACE SUPERVISOR Gender Identity Not on file Sexual [...] 06/08/2021, 04/06/2021 Medical Devices Implanted Type Area Imaging Tech Device Identifier Shelf Expiration Date Model / Serial / Lot Hip Replacement Total Right-11/27/19 16 Implanted:11/07 by Forrest Antoine MD (Quantity not on file) Bone Right: Hip Description:Total hip replac ement. Lead (Rv) Implanted:Qty: 1 on 02/08/2021 by Moisés Garcia Jr., MD Lead Left: Ventricle Biotronik PLEXA PROMRI S 60 / [id number] / Lead (Ra) Implanted:04/2021 by Moisés Garcia Jr., MD (Quantity not on file) Lead Heart Biotronik SOLIA S 53 / [id number] / Biotronik Pacemaker Implanted:Qty: 1 on 02/08/2021 by Moisés Garcia Jr., MD Pacemaker Left: Atria Biotronik RIVACOR 7 BOY DF4 PRO MRI / [id number] / Procedures Procedure Name Priority Date/Time Associated Diagnosis Comments PAP AND HIGH RISK HPV, REFLEX TO GENOTYPING Routine 09/25/2024 11:35 AM CDT Well woman exam HIGH RISK HPV DNA DETECTION WITH GENOTYPING Routine 09/25/2024 11:35 AM CDT Well woman exam EGFR Routine 12/23/2022 11:10 AM BLAST FURNACE SUPERVISOR ILD (interstitial lung disease) (HCC) SERUM LIPID PANEL Routine 11/05/2015 11: 53 PM CDT from Last 3 Months or Most Recently Relevant to Health Maintenance Results * High Risk HPV DNA Detection with Genotyping (Molecular component) (09/25/2024 11:35 AM CDT) HPV HR 16 Not Detected Not Detected [facility] Comment:Testing performed by : [facility], [address] [place]., [address] HPV HR 18 Not Detected Not Detected [facility] Comment:Testing performed by : [facility], [address] [place]., [address] HPV HR Non 16/18 Not Detected Not [...] this test have been verified by the [facility] Molecular Infectious Disease laboratory. Correlate with separately reported cytology results, as applicable. Interpretive data last revised 22 Testing performed by: [facility], [address] [place]., [address] Endocervical 09/25/2024 11:3 5 AM CDT 09/26/2024 10:08 AM CDT Narrative [facility] - 09/27/2024 9:32 AM CDT Clinical history and diagnosis->screening Testing type->Screening Last menstrual period (date if known)->postmenopausal Brionna Cevallos MD LAB BODY FLUIDS AND STOOLS ORDERABLES Final Result [facility] [address] [facility] [place] [address] [facility] * Pap and High Risk HPV and Genotyping (Cytology Component) (09/25/2024 11:35 AM CDT) Thin prep (Pap test) 09/25/2024 11:35 AM CDT 09/26/2024 2:11 AM CDT Narrative PATHOLOGY [facility] - 09/30/2024 2:04 PM CDT EPIC results best viewed via link to PDF [facility] [place] [address] [place] [address] Note to Patients: This report may contain [...] Gender: F : 1955 (Age: 68) Address: [address] [place] [address] Hospital #: [id number] Service: DEFAULT Location: Patient Type: [facility] SPECIMEN Taken: 09/25/2024 Received: 09/26/2024 Accessioned: 09/26/2024 [...] this test have been verified by the [facility] Molecular Infectious Disease laboratory. Correlate with [...] clinical information and biopsy results as indicated. [facility] Clinical Laboratory Improvement Amendments (CLIA) mandate that cytologic and histologic results be correlated for laboratory quality assurance monitor final & improvement standards. FOR ALL HIGH-GRADE CASES [...] determined by the Surgical Pathology Department at [facility] as part of an ongoing type disk quality control supervisor program and in compliance with federally mandated [...] determined by the Surgical Pathology Department of [facility]. It has not been cleared or approved by the U. S. Food and Drug Administration. Brionna Cevallos MD LAB CYTOLOGY ORDERABLES Fi nal Result PATHOLOGY [facility] * (ABNORMAL) eGFR (12/23/2022 11:10 AM BLAST FURNACE SUPERVISOR) eGFR 52(L) >=60 mL/min/1. 73 m2 REY [facility] Comment: Interpretive Data Reference Interval Normal [...] reviewed 2020. Blood 12/23/2022 11:1 0 AM BLAST FURNACE SUPERVISOR 12/23/2022 12:14 PM BLAST FURNACE SUPERVISOR us Ananda Davis MD LAB BLOOD ORDERAB LES Final Result RE[facility] Department [place] [address] * Serum lipid panel (11/05/2015 11:53 PM [...] Most Recently Relevant to Health Maintenance Insurance [place] [facility] Address: [address] [address] [place] [address] [place] MED[place] Advance Directives For more information, please contact: [phone] * Full Code (Latest Code Status on File) Date Activated Date Inactivated Comments 12/27/2017 9:33 AM 12/28/2017 8:50 PM Care Teams Psychometric Examiner Relationship Specialty Start Date End Date Moshe Zambrano MD [address] [facility] [address] [place] [address] PCP - General Internal Medicine 01/12/24 [place] [address] [address] Consulting Physician Cardiology 12/28/17
--- OUTSIDE RECORDS SUMMARY | 2024-10-24 03:28 | XMS_ITS | Clinical Summary ---
Author Organization [facility] [employer] [facility] Address [address] [place], [place] [address] [place] [address] Phone Care Team Providers Care Directory Compiler Name Role Phone Moshe Zambrano MD Primary Care Provider [phone] Encounters Date Type Department Care Team Description 10/01/2024 Documentation Only [facility] [address] [place] [address] Provider, MD Thom from Last [...] Description 05/13/2025 1:00 PM CDT Office Visit [facility] [address] [facility] [address] [place] [address] Chester Yin DO [address] [facility] 1 [place] [address] Health Maintenance Due Date Last [...] 12/21/2023 Insurance Medicaid [place] Medicare Care Teams Directory Compiler Relationship Specialty Start Date End Date Moshe Zambrano MD [address] [facility] [address] [place] [address] PCP - General Internal Medicine 10/01/24
--- OUTSIDE RECORDS SUMMARY | 2024-10-24 03:28 | XMS_ITS | Clinical Summary ---
Author Organization [facility] Address [address] [place] [address] Care Team Providers Care Unit Technician Name Role Phone Moshe Zambrano MD Primary Care Provider [phone] Allergies Active Allergy Reactions Criticality Noted Date [...] Comments Blood Pressure 112/53 01/09/2024 2:23 PM ACCOUNTS PAYABLE TECHNICIAN Pulse 80 01/09/2024 2:23 PM ACCOUNTS PAYABLE TECHNICIAN Temperature - - Respiratory Rate 20 01/09/2024 2:23 PM ACCOUNTS PAYABLE TECHNICIAN Oxygen Saturation 99% 01/09/2024 2:23 PM ACCOUNTS PAYABLE TECHNICIAN Inhaled Oxygen Concentration - - Weight 69.4 kg (153 lb) 02/26/2024 2:16 PM ACCOUNTS PAYABLE TECHNICIAN Height 152.4 cm (5') 02/26/2024 2:16 PM ACCOUNTS PAYABLE TECHNICIAN Body Mass Index 29.88 02/26/2024 2:16 PM ACCOUNTS PAYABLE TECHNICIAN Plan of Treatment Health Maintenance Due Date [...] this topic Medical Devices Implanted Type Area Underwriting Internship Device Identifier Shelf Expiration Date Model / Serial / Lot Icd-02/08/2021 Implanted:2021 (Quantity not on file) ICD [employer] Insurance MEDICARE MEDICAID Care Teams Unit Technician Relationship Specialty Start Date End Date Moshe Zambrano MD [address] [facility] 100 [place] [address] PCP - General INTERNAL MEDICINE 01/09/24 Deysi Reno Physician CARDIOLOGY 02/06/23 David Reno Physician NEPHROLOGY 02/06/23
--- OUTSIDE RECORDS SUMMARY | 2024-10-24 03:28 | XMS_ITS | Clinical Summary ---
Author Organization [facility] Address [address] [place] [address] Care Team Providers Care Car Customizer Name Role Phone Moshe Zambrano MD Primary Care Provider Source Comments [facility],non-owned Affiliates and Associated Physician Practices is amultiple site organization consisting of ambulatory clinics and hospital sitesin [place], [place], [place] and [place]. This disclosure is being madepursuant to the Care Everywhere program and may not contain all information available regarding this patient. Last updated 17.[facility] Allergies Active Allergy Reactions Criticality Noted Date [...] mouth at bedtime Active Vitamin D, Ergocalciferol, 56086 units CAPS Take by mouth every 7 [...] Active Nicotrol NS 10 MG/ML nasal spray Oxford 1 (one) spray into each nostril 3 [...] bleach solution if approve PCP. Consult professional soil conservationist to get way of cockroaches. Repair holes [...] positive for diabetic neuropathy. Sarah sees a swimming pool salesperson regularly for foot care. Discussed regular foot care with her to prevent and identify any irregularities on the soles of the feet or on and between the toes. Sarah encouraged to utilize a mirror for better view of the soles of the feet if needed. Advised member to discuss with the PCP the services of a swimming pool salesperson. Follow up in: three months with PCP and Insurance Compliance Analyst Multiple benign melanocytic nevi of upper and [...] on file Legal Sex Female 4:21 AM ADMINISTRATIVE VOLUNTEER Gender Identity Not on file Sexual Orientation Not on file Last Filed Vital Signs Vital Sign Reading Time Taken Comments Blood Pressure 117/55 05/27/2024 12:00 PM CDT Pulse 84 05/27/2024 12:00 PM CDT Temperature 36.7 C (98 F) 05/27/2024 12:00 PM CDT Respiratory Rate 17 12/21/2023 12:55 PM ADMINISTRATIVE VOLUNTEER Oxygen Saturation 100% 05/27/2024 12:00 PM CDT Inhaled Oxygen Concentration - - Weight 71.7 kg (158 lb) 05/27/2024 12:00 PM CDT Height 152.4 cm (5') 05/27/2024 12:00 PM CDT Body Mass Index 30.86 05/27/2024 12:00 PM CDT Plan of Treatment Upcoming Encounters Date Type Department Care Team (Latest Contact Info) Description 12/25/2024 10:15 AM ADMINISTRATIVE VOLUNTEER Appointment [facility] [address] [place] [phone] Wayne Vasquez MD [address] [address] 12/25/2024 1:00 PM ADMINISTRATIVE VOLUNTEER Hospital Encounter [facility] ENDOSCOPY [address] [place] [address] Melody Fernandez MD [address] [place] [address] Surgery General 12/25/2024 1:00 PM ADMINISTRATIVE VOLUNTEER - 12/25/2024 1:45 PM ADMINISTRATIVE VOLUNTEER Surgery [facility] ENDOSCOPY [address] [place] [address] Melody Fernandez MD [facility]8 [place] [address] COLONOSCOPY SCREEN--2 day prep with suprep w/ jed. US prior. labs also 05/12/2025 10:00 AM CDT Office Visit [facility] - GI [facility] [facility], [place] [address] Wayne Vasquez MD [address] [place] [address] [address] [place] [address] Scheduled Procedures Name Priority Associated Diagnoses Date/Ti me COLONOSCOPY SCREEN History of adenomatous polyp of colon 12/25/2024 1:00 PM ADMINISTRATIVE VOLUNTEER Health Maintenance Due Date Last Done Comments [...] ENDOSCOPY, COLON, DIAGNOSTIC Routine 12/21/2023 11:28 AM ADMINISTRATIVE VOLUNTEER COMPREHENSIVE METABOLIC PANEL Routine 06/07/2023 11:19 AM CDT Liver cirrhosis secondary to LINK from Last 3 Months or Most Recently Relevant to Health Maintenance Results * ENDOSCOPY, COLON, DIAGNOSTIC (12/21/2023 11:28 AM ADMINISTRATIVE VOLUNTEER) Report Endoscopy POC Endoscopy Department Report _ [...] bowel preparation was evaluated using the BBPS ([place] Bowel Preparation Scale) with scores of: Right [...] non-jones portions. Procedure Code(s): --- Professional --- 95026, Colonoscopy, flexible; with removal of tumor(s), polyp(s), or other lesion(s) by snare technique [id number], Unlisted procedure, colon Diagnosis Code(s): --- Professional --- Z86.010, Personal history of colonic polyps K64.9, Unspecified hemorrhoids D12.3, Benign neoplasm of transverse colon (hepatic flexure or splenic flexure) D12.2, Benign neoplasm of ascending colon CPT copyright 2021 [employer]. All rights reserved. The codes documented in this report are preliminary and upon academic affairs director review may be revised to meet current compliance requirements. Melody Fernandez MD 12/22/2023 2:47:07 PM This report has been signed electronically. Note Initiated On: 12/21/2023 11:28 AM Number of Addenda: [address] [address] [facility] 12/21/2023 11:2 8 AM ADMINISTRATIVE VOLUNTEER Melody Fernandez MD GI PROCEDURE ORDERABLES Edited R esult - Final [facility] * (ABNORMAL) COMPREHENSIVE METABOLIC PANEL (06/07/2023 11:19 AM CDT) BUN 21 7 - 26 mg/dL 06/07/2023 12:[address] [facility] Creatinine 1.33(H) 0.56 - 0.96 mg/dL 06/07/2023 12:12 PM [facility] Sodium 136 136 - 145 mmol/L 06/07/2023 12:12 PM [facility] Potassium 4.1 3.5 - 4.5 mmol/L 06/07/2023 12:12 PM [facility] Chloride 103 98 - 107 mmol/L 06/07/2023 12:12 PM [facility] CO2 23 22 - 29 mmol/L 06/07/2023 12:12 PM [facility] Glucose 73 70 - 115 mg/dL 06/07/2023 12:12 PM [facility] Calcium 10.0 8.4 - 10.2 mg/dL 06/07/2023 12:[address] [facility] Protein Total 7.3 6.0 - 8.3 g/dL 06/07/2023 12:[address] [facility] Albumin 3.8 3.4 - 5.0 g/dL 06/07/2023 12:[address] [facility] Bilirubin Total 0.6 0.2 - 1.2 mg/dL 06/07/2023 12:[address] [facility] Alkaline Phosphatase 64 40 - 150 U/L 06/07/2023 12:[address] [facility] ALT 26 5 - 55 U/L 06/07/2023 12:[address] [facility] AST 34 5 - 34 U/L 06/07/2023 12:[address] [facility] Anion Gap 10 6 - 16 06/07/2023 12:[address] [facility] BUN/Creatinine Ratio 16 7 - 23 06/07/2023 12:[address] [facility] Osmolality Calculated 284 275 - 295 mOsm/kg 06/07/2023 12:[address] [facility] Albumin/Globulin Ratio 1.1 1.1 - 2.3 06/07/2023 12:[address] [facility] eGFR by CKD-EPI 44(L) >=90 mL/min/1.7 3 m2 06/07/2023 12:[address] [facility] Blood BLOOD SPECIMEN / Unknown Lab Venipuncture / Unknown 06/07/2023 11:19 AM CDT 06/07/2023 11:44 AM [facility] us Wayne Vasquez MD LAB - CHEMISTRY ORDERABLES Fin al Result [facility] [address] [place] [address], [facility] [phone] from Last 3 Months or Most Recently Relevant to Health Maintenance Insurance MEDICARE MEDICAID - [place] Care Teams Car Customizer Relationship Specialty Start Date End Date Moshe Zambrano MD [address] [place] [address] [address] [place] [address] PCP - General Internal Medicine 05/27/24
--- OUTSIDE RECORDS SUMMARY | 2024-10-24 03:28 | XMS_ITS | Encounter Summary ---
Author Organization [facility] Address [facility] [place] [address] Care Team Providers Care Pig Furnace Operator Name Role Phone Moshe Zambrano MD Primary Care Provider [phone] Encounter Details Date Type Department Care Team (Late st Contact Info) Description 01/10/2024 Prep for Procedure [facility] [place] [address] Karyn Stein MD 3 [facility] [address] [place], [place] [id number] Social History Tobacco Use Types Packs/Day Years [...] (ABNORMAL) URINE BACTERIA CULTURE (01/09/2024 3:33 PM TYPE BAR AND SEGMENT ASSEMBLER) SPEC DESCRIPTION URINE CLEAN CATCH 01/10/2024 9:35 AM TYPE BAR AND SEGMENT ASSEMBLER [facility] SPECIAL REQUESTS NO SPECIAL REQUEST 01/10/2024 9:35 AM TYPE BAR AND SEGMENT ASSEMBLER [facility] CULTURE RESULT 50,000-100,000 COL/ML ESCHERICHIA COLI (A) 01/12/2024 7:13 AM TYPE BAR AND SEGMENT ASSEMBLER [facility] CULTURE RESULT 1,000-9,000 COL/ML STREPTOCOCCI, BETA HEMOLYTIC GROUP B SUSCEPTIBILTY NOT ROUTINELY PERFORMED. SAVING ISOLATE FOR 5 DAYS. CONTACT MICROBIOLOGY DEPARTMENT IF FURTHER WORKUP IS INDICATED. (A) 01/12/2024 7:13 AM TYPE BAR AND SEGMENT ASSEMBLER [facility] URINE SPECIMEN OBTAINED BY CLEAN CATCH PROCEDURE / Unknown 01/09/2024 3:33 PM TYPE BAR AND SEGMENT ASSEMBLER 01/10/2024 9:43 AM TYPE BAR AND SEGMENT ASSEMBLER Narrative Organism Antibiotic Method Susceptibility Escherichia coli [...] MICROBIOLOGY - GENERAL ORDERA BLES Final Result [facility] [address] [place] [address], documented in this encounter Visit Diagnoses Diagnosis Lumbar compression fracture (CMS/HCC [facility])- Primary Closed fracture of lumbar vertebra without mention of spinal cord injury Abnormal urine findings Other nonspecific finding on examination of urine documented in this encounter Care Teams Pig Furnace Operator Relationship Specialty Start Date End Date Moshe Zambrano MD [address] [place] [address] [address] [place] [address] PCP - General INTERNAL MEDICINE 01/09/24 Deysi Reno Physician CARDIOLOGY 02/06/23 David Reno Physician NEPHROLOGY 02/06/23 documented as of this encounter
--- OUTSIDE RECORDS SUMMARY | 2024-10-24 03:28 | XMS_ITS | Encounter Summary ---
Author Organization [facility] Address [address] [place] [address] Care Team Providers Care Valve Machine Operator Name Role Phone Kady Singh MD Primary Care Provider [phone] Moshe Zambrano MD Primary Care Provider [phone] Reason for Visit * Reason Onset Date Comments Pre-op Instructions 04/24/2023 Encounter Details Date Type Department Care Team (Late st Contact Info) Description 04/24/2023 Patient Outreach [facility] ENDOSCOPY [address] [place] [phone] Luz Jones RN Pre-op Instructions Social History Tobacco Use Types Packs/Day Years Used Date Smoking Tobacco: Every Day Cigarettes 0.5 56 Smokeless Tobacco: Never Alcohol Use Standard Drinks/Week Comments No 0 (1 standard drink = 0.6 oz pur e alcohol) Comments No Sex and Gender Information Value Date Recorded Sex Assigned at Not on file Legal Sex Female 4:21 AM MACHINE BENDER Gender Identity Not on file Sexual Orientation [...] (Latest Contact Info) Description 12/25/2024 10:15 AM MACHINE BENDER Appointment [facility] [address] [place] [address] Wayne Vasquez MD [address] [place] [address] [address] [place] [address] 12/25/2024 1:00 PM MACHINE BENDER Hospital Encounter [facility] [address] [place] [address] Melody Fernandez MD [address] [place] [address] Surgery General 12/25/2024 1:00 PM MACHINE BENDER - 12/25/2024 1:45 PM MACHINE BENDER Surgery [facility] [address] [place] [address] Melody Fernandez MD [address] [place] [address] COLONOSCOPY SCREEN--2 day prep with lakesha bowles/ jed. prior. labs also 05/12/2025 10:00 AM CDT [facility] [address] [place] [address], [place] [address] Wayne Vasquez MD [address] [place] [address] [address] [place] [address] Scheduled Procedures Name Priority Associated Diagnoses Date/Ti me COLONOSCOPY SCREEN History of adenomatous polyp of colon 12/25/2024 1:00 PM MACHINE BENDER documented as of this encounter Goals Goal [...] on filedocumented in this encounter Care Teams Valve Machine Operator Relationship Specialty Start Date End Date Kady Singh MD [address] [place] [address] [place] [address] PCP - General Family Medicine 04/18/22 05/26/24 Moshe Zambrano MD [address] [place] [address] [address] [place] [address] PCP - General Internal Medicine 05/27/24 documented as of this encounter
--- OUTSIDE RECORDS SUMMARY | 2024-10-24 03:28 | XMS_ITS | Encounter Summary ---
Author Organization [facility] Address [address] [place] [address] Care Team Providers Care Cable Tower Operator Name Role Phone Deysi Reno MD Unavailable Moshe Zambrano MD Primary Care Provider [phone] Encounter Details Date Type Department Care Team (Late st Contact Info) Description 09/30/2024 Results Follow-Up [facility] Obstetrical Gynecology [address] [address] Brionna Cevallos MD [address] [facility] [address] [place] [address] Pap and High Risk HPV [...] on file Legal Sex Female 6:09 PM BULK SAUSAGE CASING TIER OFF Gender Identity Not on file Sexual Orientation Not on file documented as of this encounter Plan of Treatment Not on file documented as of this encounter Visit Diagnoses Not on filedocumented in this encounter Care Teams Cable Tower Operator Relationship Specialty Start Date End Date Moshe Zambrano MD [address] [facility] 100 [place] [address] PCP - General Internal Medicine 01/12/24 [place] [address] [place] [address] Consulting Physician Cardiology 12/28/17 documented as of this encounter
--- OUTSIDE RECORDS SUMMARY | 2024-10-24 03:28 | XMS_ITS | Clinical Summary ---
Author Organization [facility] Address [address] [place] [address] Phone Care Team Providers Care Manager Valuation Name Role Phone Unavailable Primary Care Provider [...] - 1-dose 75+ series) 2029 Insurance RX [employer] Medicare Part D RX [employer] Commercial
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
--- OUTSIDE RECORDS SUMMARY | 2024-10-24 03:55 | XMS_ITS | Encounter Summary ---
Author Organization [facility] Address [address] [place] [address] Care Team Providers Care Scout Sniper Name Role Phone Kady Singh MD Primary Care Provider Moshe Zambrano MD Primary Care Provider [phone] Encounter Details Date Type Department Care Team (Late st Contact Info) Description 06/16/2023 Telephone [facility] - Dermatology [address] [facility] [place] [address] Mayra Louis, [address] [place] [address] Social History Tobacco Use Types Packs/Day Years Used Date Smoking Tobacco: Every Day Cigarettes 0.5 56 Smokeless Tobacco: Never Alcohol Use Standard Drinks/Week Comments No 0 (1 standard drink = 0.6 oz pur e alcohol) Comments No Sex and Gender Information Value Date Recorded Sex Assigned at Not on file Legal Sex Female 4:21 AM RAND CEMENTER Gender Identity Not on file Sexual Orientation [...] socks....needing doc office to call DME for [place] Medicaid to see if they will cover the pressure socks Patient Call Back Number: [phone] documented in this encounter Plan of Treatment Upcoming Encounters Date Type Department Care Team (Latest Contact Info) Description 12/25/2024 10:15 AM RAND CEMENTER Appointment [facility] US [address] [place] [address] Wayne Vasquez MD [address] [place] [address] 12/25/2024 1:00 PM RAND CEMENTER Hospital Encounter [facility] ENDOSCOPY [address] [place] [id number] Melody Fernandez MD [address] [place] [id number] Surgery General 12/25/2024 1:00 PM RAND CEMENTER - 12/25/2024 1:45 PM RAND CEMENTER Surgery [facility] ENDOSCOPY [address] [place] [address] Melody Fernandez MD [address] [place] [phone] COLONOSCOPY SCREEN--2 day prep with suprep w/ jed. US prior. labs also 05/12/2025 10:00 AM CDT Office Visit [facility] - GI [address] [facility] [place] [phone] Wayne Vasquez MD [address] [facility] [address] [place] [address] Scheduled Procedures Name Priority Associated Diagnoses Date/Ti me COLONOSCOPY SCREEN History of adenomatous polyp of colon 12/25/2024 1:00 PM RAND CEMENTER documented as of this encounter Goals Goal [...] on filedocumented in this encounter Care Teams Scout Sniper Relationship Specialty Start Date End Date Kady Singh MD [address] [place] [address] [place] [address] PCP - General Family Medicine 04/18/22 05/26/24 Moshe Zambrano MD [address] [place] [address] [address] [place] [address] PCP - General Internal Medicine 05/27/24 documented as of this encounter
--- OUTSIDE RECORDS SUMMARY | 2024-10-24 03:55 | XMS_ITS | Clinical Summary ---
Author Organization [facility] Address [address] [place] [address] Care Team Providers Care Wood Finisher Name Role Phone Deysi Reno MD Unavailable Moshe Zambrano MD Primary Care Provider [phone] Allergies Active Allergy Reactions Criticality Noted Date [...] positive for diabetic neuropathy. Jamar sees a crystal slicer regularly for foot care. Discussed regular foot care with her to prevent and identify any irregularities on the soles of the feet or on and between the toes. Jamar encouraged to utilize a mirror for better view of the soles of the feet if needed. Advised member to discuss with the PCP the services of a crystal slicer. Follow up in: three months with PCP and Stockbroking Dealer Stress incontinence of urine 12/24/2018 Osteoarthritis 12/24/2018 [...] Department Care Team Description 09/30/2024 Results Follow-Up [facility] Obstetrical Gynecology [address] [facility] [address] [place] [phone] Brionna Cevallos MD Pap and High Risk HPV and Genotyping (Cytology Component) 09/25/2024 4:29 PM CDT - 09/25/2024 11:59 PM CDT Hospital Encounter [facility] Lab [address] [place] [address] Well woman exam Discharge Disposition: Discharge to home or self care 09/25/2024 11:15 AM CDT Office Visit [facility] Obstetrical Gynecology [address] [facility] [address] [place] [phone] Brionna Cevallos MD Well woman exam (Primary Dx); Feeling of incomplete bladder emptying from Last 3 Months Immunizations Immunization Administration Dates Next Due Influenza, Quadrivalent, Hig h Dose, Preservative Free, Intrr 11/04/2020 Influenza, Quadrivalent, Spl it, Intramuscular 11/21/2018,10/30/2018,11/07/2017,11/11 Influenza, Quadrivalent, Spl it, Preservative Free, Intramuscular 09/22/2019 Influenza, Trivalent, IM (MDV) 11/06/2014 Influenza, Unspecified 11/07/2023,2022,10/16/2021,11/05,10/30/2018,11/07/2017,11/06/2015 [employer] (J&J) SARS-CoV-2 Vaccination 03/19/2020 Pfizer SARS-CoV-2 Monovalent [...] on file Legal Sex Female 6:09 PM SACK SORTER Gender Identity Not on file Sexual Orientation [...] 06/08/2021, 04/06/2021 Medical Devices Implanted Type Area Mba Intern Device Identifier Shelf Expiration Date Model / Serial / Lot Hip Replacement Total Right-11/27/19 16 Implanted:11/07 by Forrest Antoine MD (Quantity not on file) Bone Right: Hip Description:Total hip replac ement. Lead (Rv) Implanted:Qty: 1 on 02/08/2021 by Moisés Garcia Jr., MD Lead Left: Ventricle Biotronik PLEXA PROMRI S 60 / [id number] / Lead (Ra) Implanted:04/2021 by Moisés Garcia Jr., MD (Quantity not on file) Lead Heart Biotronik SOLIA S 53 / [id number] / Biotronik Pacemaker Implanted:Qty: 1 on 02/08/2021 by Moisés Garcia Jr., MD Pacemaker Left: Atria Biotronik RIVACOR 7 BOY DF4 PRO MRI / [id number] / Procedures Procedure Name Priority Date/Time Associated Diagnosis Comments PAP AND HIGH RISK HPV, REFLEX TO GENOTYPING Routine 09/25/2024 11:35 AM CDT Well woman exam HIGH RISK HPV DNA DETECTION WITH GENOTYPING Routine 09/25/2024 11:35 AM CDT Well woman exam EGFR Routine 12/23/2022 11:10 AM SACK SORTER ILD (interstitial lung disease) (HCC) SERUM LIPID PANEL Routine 11/05/2015 11: 53 PM CDT from Last 3 Months or Most Recently Relevant to Health Maintenance Results * High Risk HPV DNA Detection with Genotyping (Molecular component) (09/25/2024 11:35 AM CDT) HPV HR [address] [facility] Comment:Testing performed by : [facility], [address] [place]., [address] HPV HR 18 Not Detected Not Detected [facility] Comment:Testing performed by : [facility], [address] [place]., [address] HPV HR Non 16/18 Not Detected Not [...] this test have been verified by the [facility] Molecular Infectious Disease laboratory. Correlate with separately reported cytology results, as applicable. Interpretive data last revised 22 Testing performed by: [facility], [address] [place]., [address] Endocervical 09/25/2024 11:3 5 AM CDT 09/26/2024 10:08 AM CDT Narrative CERNER - 09/27/2024 9:32 AM CDT Clinical history and diagnosis->screening Testing type->Screening Last menstrual period (date if known)->postmenopausal Brionna Cevallos MD LAB BODY FLUIDS AND STOOLS ORDERABLES Final Result [facility] [address] [facility] Department [place] [address] [facility] * Pap and High Risk HPV and Genotyping (Cytology Component) (09/25/2024 11:35 AM CDT) Thin prep (Pap test) 09/25/2024 11:35 AM CDT 09/26/2024 2:11 AM CDT Narrative PATHOLOGY [facility] - 09/30/2024 2:04 PM CDT EPIC results best viewed via link to PDF [facility] of Surgical [place] [address] [place] [address] Note to Patients: This report may contain [...] Gender: F : 1955 (Age: 68) Address: [address] [place] [address] Hospital #: [id number] Service: DEFAULT Location: Patient Type: [facility] SPECIMEN Taken: 09/25/2024 Received: 09/26/2024 [...] this test have been verified by the [facility] Molecular Infectious Disease laboratory. Correlate [...] clinical information and biopsy results as indicated. [facility] Clinical Laboratory Improvement Amendments (CLIA) mandate that cytologic and histologic results be correlated for laboratory water quality technician & improvement standards. FOR ALL HIGH-GRADE CASES [...] determined by the Surgical Pathology Department at [facility] as part of an ongoing [...] determined by the Surgical Pathology Department of [facility]. It has not been cleared or approved by the U. S. Food and Drug Administration. Brionna Cevallos MD LAB CYTOLOGY ORDERABLES Fi nal Result PATHOLOGY [facility] * (ABNORMAL) eGFR (12/23/2022 11:10 AM SACK SORTER) eGFR 52(L) >=60 mL/min/1. [address] [facility] Comment: Interpretive Data Reference Interval Normal >/= [...] reviewed 2020. Blood 12/23/2022 11:1 0 AM SACK SORTER 12/23/2022 12:14 PM SACK SORTER us Ananda Davis MD LAB BLOOD ORDERAB LES Final Result [facility] Department [place] [address] * Serum lipid panel (11/05/2015 11:53 PM [...] Most Recently Relevant to Health Maintenance Insurance IDMS MEDICARE IDMS MEDICARE IDPA Advance Directives For more information, please contact: [phone] * Full Code (Latest Code Status on File) Date Activated Date Inactivated Comments 12/27/2017 9:33 AM 12/28/2017 8:50 PM Care Teams Wood Finisher Relationship Specialty Start Date End Date Moshe Zambrano MD [address] [facility] [address] [place] [address] PCP - General Internal Medicine 01/12/24 [place] [address] [address] Consulting Physician Cardiology 12/28/17
--- OUTSIDE RECORDS SUMMARY | 2024-10-24 03:56 | XMS_ITS | Clinical Summary ---
Author Organization [facility] [address] Address [address] [facility] [place] [address] Care Team Providers Care Bolt Machine Operator Name Role Phone Moshe Zambrano MD Primary Care Provider [phone] Source Comments [facility],non-owned Affiliates and Associated Physician Practices is amultiple site organization consisting of ambulatory clinics and hospital sitesin [place], [place], [place] and [place]. This disclosure is being madepursuant to the Care Everywhere program and may not contain all information available regarding this patient. Last updated 17.[facility] Allergies Active Allergy Reactions Criticality Noted Date [...] mouth at bedtime Active Vitamin D, Ergocalciferol, 13508 units CAPS Take by mouth every 7 [...] Active Nicotrol NS 10 MG/ML nasal spray [place] 1 (one) spray into each nostril 3 [...] bleach solution if approve PCP. Consult professional roving can tender to get way of cockroaches. Repair holes [...] positive for diabetic neuropathy. Sarah sees a director sales regularly for foot care. Discussed regular foot care with her to prevent and identify any irregularities on the soles of the feet or on and between the toes. Sarah encouraged to utilize a mirror for better view of the soles of the feet if needed. Advised member to discuss with the PCP the services of a director sales. Follow up in: three months with PCP and Geospatial Analyst Multiple benign melanocytic nevi of upper [...] on file Legal Sex Female 4:21 AM FINANCIAL INVESTMENT ADVISER Gender Identity Not on file Sexual Orientation Not on file Last Filed Vital Signs Vital Sign Reading Time Taken Comments Blood Pressure 117/55 05/27/2024 12:00 PM CDT Pulse 84 05/27/2024 12:00 PM CDT Temperature 36.7 C (98 F) 05/27/2024 12:00 PM CDT Respiratory Rate 17 12/21/2023 12:55 PM FINANCIAL INVESTMENT ADVISER Oxygen Saturation 100% 05/27/2024 12:00 PM CDT Inhaled Oxygen Concentration - - Weight 71.7 kg (158 lb) 05/27/2024 12:00 PM CDT Height 152.4 cm (5') 05/27/2024 12:00 PM CDT Body Mass Index 30.86 05/27/2024 12:00 PM CDT Plan of Treatment Upcoming Encounters Date Type Department Care Team (Latest Contact Info) Description 12/25/2024 10:15 AM FINANCIAL INVESTMENT ADVISER Appointment [facility] [address] [place] [phone] Wayne Vasquez MD [address] [place] [address] 12/25/2024 1:00 PM FINANCIAL INVESTMENT ADVISER Hospital Encounter [facility] [address] [place] [address] Melody Fernandez MD [address] [place] [address] Surgery General 12/25/2024 1:00 PM FINANCIAL INVESTMENT ADVISER - 12/25/2024 1:45 PM FINANCIAL INVESTMENT ADVISER Surgery [facility] [address] [place] [address] Melody Fernandez MD [facility] [place] [address] COLONOSCOPY SCREEN--2 day prep with suprep w/ jed. US prior. labs also 05/12/2025 10:00 AM CDT Office Visit [facility] - GI [facility], [place] [address] Wayne Vasquez MD [address] [place] [address] [address] [place] [address] Scheduled Procedures Name Priority Associated Diagnoses Date/Ti me COLONOSCOPY SCREEN History of adenomatous polyp of colon 12/25/2024 1:00 PM FINANCIAL INVESTMENT ADVISER Health Maintenance Due Date Last Done Comments [...] ENDOSCOPY, COLON, DIAGNOSTIC Routine 12/21/2023 11:28 AM FINANCIAL INVESTMENT ADVISER COMPREHENSIVE METABOLIC PANEL Routine 06/07/2023 11:19 AM CDT Liver cirrhosis secondary to LINK from Last 3 Months or Most Recently Relevant to Health Maintenance Results * ENDOSCOPY, COLON, DIAGNOSTIC (12/21/2023 11:28 AM FINANCIAL INVESTMENT ADVISER) Report Endoscopy POC Endoscopy Department Report _ [...] bowel preparation was evaluated using the BBPS (Dauphin Bowel Preparation Scale) with scores of: Right [...] non-jones portions. Procedure Code(s): --- Professional --- 22950, Colonoscopy, flexible; with removal of tumor(s), polyp(s), or other lesion(s) by snare technique 65717, Unlisted procedure, colon Diagnosis Code(s): --- Professional --- Z86.010, Personal history of colonic polyps K64.9, Unspecified hemorrhoids D12.3, Benign neoplasm of transverse colon (hepatic flexure or splenic flexure) D12.2, Benign neoplasm of ascending colon CPT copyright 2021 [employer]. All rights reserved. The codes documented in this report are preliminary and upon boiler attendant review may be revised to meet current compliance requirements. Melody Fernandez MD 12/22/2023 2:47:07 PM This report has been signed electronically. Note Initiated On: 12/21/2023 11:28 AM Number of Addenda: [address] [address] [facility] 12/21/2023 11:2 8 AM FINANCIAL INVESTMENT ADVISER Melody Fernandez MD GI PROCEDURE ORDERABLES Edited R esult - Final [facility] * (ABNORMAL) COMPREHENSIVE METABOLIC PANEL (06/07/2023 11:19 AM CDT) BUN 21 7 - 26 mg/dL 06/07/2023 12:12 PM [facility] Creatinine 1.33(H) 0.56 - 0.96 mg/dL 06/07/2023 12:12 PM [facility] Sodium 136 136 - 145 mmol/L 06/07/2023 12:12 PM [facility] Potassium 4.1 3.5 - 4.5 mmol/L 06/07/2023 12:12 PM [facility] Chloride 103 98 - 107 mmol/L 06/07/2023 12:12 PM [facility] CO2 23 22 - 29 mmol/L 06/07/2023 12:12 PM [facility] Glucose 73 70 - 115 mg/dL 06/07/2023 12:12 PM [facility] Calcium 10.0 8.4 - 10.2 mg/dL 06/07/2023 12:12 PM [facility] Protein Total 7.3 6.0 - 8.3 g/dL 06/07/2023 12:12 PM [facility] Albumin 3.8 3.4 - 5.0 g/dL 06/07/2023 12:12 PM [facility] Bilirubin Total 0.6 0.2 - 1.2 mg/dL 06/07/2023 12:12 PM [facility] Alkaline Phosphatase 64 40 - 150 U/L 06/07/2023 12:12 PM [facility] ALT 26 5 - 55 U/L 06/07/2023 12:12 PM [facility] AST 34 5 - 34 U/L 06/07/2023 12:12 PM [facility] Anion Gap 10 6 - 16 06/07/2023 12:12 PM [facility] BUN/Creatinine Ratio 16 7 - 23 06/07/2023 12:12 PM [facility] Osmolality Calculated 284 275 - 295 mOsm/kg 06/07/2023 12:12 PM [facility] Albumin/Globulin Ratio 1.1 1.1 - 2.3 06/07/2023 12:12 PM [facility] eGFR by CKD-EPI 44(L) >=90 mL/min/1.7 3 m2 06/07/2023 12:12 PM [facility] Blood BLOOD SPECIMEN / Unknown Lab Venipuncture / Unknown 06/07/2023 11:19 AM CDT 06/07/2023 11:44 AM [facility] us Wayne Vasquez MD LAB - CHEMISTRY ORDERABLES Fin al Result [facility] [address] [place] [address], [facility] [phone] from Last 3 Months or Most Recently Relevant to Health Maintenance Insurance MEDICARE MEDICAID - [place] Care Teams Bolt Machine Operator Relationship Specialty Start Date End Date Moshe Zambrano MD [address] [place] [address] [address] [place] [address] PCP - General Internal Medicine 05/27/24
--- OUTSIDE RECORDS SUMMARY | 2024-10-24 03:56 | XMS_ITS | Encounter Summary ---
Author Organization [facility] Address [facility] [place] [address] Care Team Providers Care Service Porter Name Role Phone Moshe Zambrano MD Primary Care Provider [phone] Encounter Details Date Type Department Care Team (Late st Contact Info) Description 01/10/2024 Prep for Procedure [facility] [place] [address] Karyn Stein MD 3 [facility] [address] [place], [place] [id number] Social History Tobacco Use Types Packs/Day Years [...] (ABNORMAL) URINE BACTERIA CULTURE (01/09/2024 3:33 PM MUNICIPAL SERVICES MANAGER) SPEC DESCRIPTION URINE CLEAN CATCH 01/10/2024 9:35 AM MUNICIPAL SERVICES MANAGER [facility] SPECIAL REQUESTS NO SPECIAL REQUEST 01/10/2024 9:35 AM MUNICIPAL SERVICES MANAGER [facility] LAB CULTURE RESULT 50,000-100,000 COL/ML ESCHERICHIA COLI (A) 01/12/2024 7:13 AM MUNICIPAL SERVICES MANAGER [facility] LAB CULTURE RESULT 1,000-9,000 COL/ML STREPTOCOCCI, BETA HEMOLYTIC GROUP B SUSCEPTIBILTY NOT ROUTINELY PERFORMED. SAVING ISOLATE FOR 5 DAYS. CONTACT MICROBIOLOGY DEPARTMENT IF FURTHER WORKUP IS INDICATED. (A) 01/12/2024 7:13 AM MUNICIPAL SERVICES MANAGER [facility] URINE SPECIMEN OBTAINED BY CLEAN CATCH PROCEDURE / Unknown 01/09/2024 3:33 PM MUNICIPAL SERVICES MANAGER 01/10/2024 9:43 AM MUNICIPAL SERVICES MANAGER Narrative Organism Antibiotic Method Susceptibility Escherichia coli [...] MICROBIOLOGY - GENERAL ORDERA BLES Final Result [facility] [address] [place] [address], documented in this encounter Visit Diagnoses Diagnosis Lumbar compression fracture (CMS/HCC [facility])- Primary Closed fracture of lumbar vertebra without mention of spinal cord injury Abnormal urine findings Other nonspecific finding on examination of urine documented in this encounter Care Teams Service Porter Relationship Specialty Start Date End Date Moshe Zambrano MD [address] [place] [address] [address] [place] [address] PCP - General INTERNAL MEDICINE 01/09/24 Deysi Reno Physician CARDIOLOGY 02/06/23 David Reno Physician NEPHROLOGY 02/06/23 documented as of this encounter
--- OUTSIDE RECORDS SUMMARY | 2024-10-24 03:56 | XMS_ITS | Encounter Summary ---
Author Organization [facility] Healthcare Address [address] [place] [address] Care Team Providers Care Ironer Hand Name Role Phone Deysi Reno MD Unavailable Moshe Zambrano MD Primary Care Provider [phone] Encounter Details Date Type Department Care Team (Late st Contact Info) Description 09/30/2024 Results Follow-Up 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
--- OUTSIDE RECORDS SUMMARY | 2024-10-24 03:56 | XMS_ITS | Clinical Summary ---
Author Organization [facility] Address [address] [place], [place] [address] [place] [address] Phone Care Team Providers Care Artist Blacksmith Name Role Phone Moshe Zambrano MD Primary Care Provider [phone] Encounters Date Type Department Care Team Description 10/01/2024 Documentation Only [facility] [address] [place] [address] Provider, MD Thom from Last [...] Description 05/13/2025 1:00 PM CDT Office Visit [facility] [address] [facility] 15 [place] [address] [place] Yin DO [address] [facility] 1 [place] [address] Health Maintenance Due Date Last [...] 12/21/2023 Insurance Medicaid [place] Medicare Care Teams Artist Blacksmith Relationship Specialty Start Date End Date Moshe Zambrano MD [address] [facility] [address] [place] [address] PCP - General Internal Medicine 10/01/24
--- OUTSIDE RECORDS SUMMARY | 2024-10-24 03:56 | XMS_ITS | Encounter Summary ---
Author Organization [facility] Address [address] [facility] [place] [address] Care Team Providers Care Layout Designer Name Role Phone Kady Singh MD Primary Care Provider [phone] Moshe Zambrano MD Primary Care Provider [phone] Reason for Visit * Reason Onset Date Comments Pre-op Instructions 04/24/2023 Encounter Details Date Type Department Care Team (Late st Contact Info) Description 04/24/2023 Patient Outreach [facility] [address] [place] [phone] Luz Jones RN Pre-op Instructions Social History Tobacco Use Types Packs/Day Years Used Date Smoking Tobacco: Every Day Cigarettes 0.5 56 Smokeless Tobacco: Never Alcohol Use Standard Drinks/Week Comments No 0 (1 standard drink = 0.6 oz pur e alcohol) Comments No Sex and Gender Information Value Date Recorded Sex Assigned at Not on file Legal Sex Female 4:21 AM REFRIGERATION MECHANIC Gender Identity Not on file Sexual Orientation [...] (Latest Contact Info) Description 12/25/2024 10:15 AM REFRIGERATION MECHANIC Appointment [facility] [address] [place] [address] Wayne Vasquez MD [address] [place] [address] [address] DIV [place] [address] 12/25/2024 1:00 PM REFRIGERATION MECHANIC Hospital Encounter [facility] [address] [place] [address] Melody Fernandez MD [address] [place] [address] Surgery General 12/25/2024 1:00 PM REFRIGERATION MECHANIC - 12/25/2024 1:45 PM REFRIGERATION MECHANIC Surgery [facility] [address] [place] [address] Melody Fernandez MD [address] [place] [address] COLONOSCOPY SCREEN--2 day prep with lakesha bowles/ jed. prior. labs also 05/12/2025 10:00 AM CDT [facility] [address] [place] [address], [place] [address] Wayne Vasquez MD [address] [place] [address] [address] DIV [place] [address] Scheduled Procedures Name Priority Associated Diagnoses Date/Ti me COLONOSCOPY SCREEN History of adenomatous polyp of colon 12/25/2024 1:00 PM REFRIGERATION MECHANIC documented as of this encounter Goals Goal [...] on filedocumented in this encounter Care Teams Layout Designer Relationship Specialty Start Date End Date Kady Singh MD [address] [place] [address] [place] [address] PCP - General Family Medicine 04/18/22 05/26/24 Moshe Zambrano MD [address] [place] [address] [address] [place] [address] PCP - General Internal Medicine 05/27/24 documented as of this encounter
--- OUTSIDE RECORDS SUMMARY | 2024-10-24 03:56 | XMS_ITS | Clinical Summary ---
Author Organization [facility] Address [address] [place] [address] Phone Care Team Providers Care Acid Washer Operator Name Role Phone Unavailable Primary Care Provider [...] - 1-dose 75+ series) 2029 Insurance RX [employer] Medicare Part D RX [employer]
--- OUTSIDE RECORDS SUMMARY | 2024-10-24 03:56 | XMS_ITS | Clinical Summary ---
Author Organization [facility] Address [address] [place] [address] Care Team Providers Care Criminal Justice Faculty Name Role Phone Moshe Zambrano MD Primary Care Provider [phone] Allergies Active Allergy Reactions Criticality Noted Date [...] Comments Blood Pressure 112/53 01/09/2024 2:23 PM [facility] HOME [facility] Pulse 80 01/09/2024 2:23 PM [facility] Temperature - - Respiratory Rate 20 01/09/2024 2:23 PM [facility] Oxygen Saturation 99% 01/09/2024 2:23 PM [facility] Inhaled Oxygen Concentration - - Weight 69.4 kg (153 lb) 02/26/2024 2:16 PM [facility] Height 152.4 cm (5') 02/26/2024 2:16 PM [facility] HOME [facility] Body Mass Index 29.88 02/26/2024 2:16 PM IN HOME [facility] Plan of Treatment Health Maintenance Due Date [...] this topic Medical Devices Implanted Type Area Metal Organ Pipe Maker Device Identifier Shelf Expiration Date Model / Serial / Lot Icd-02/08/2021 Implanted:2021 (Quantity not on file) ICD [employer]RON[employer] Insurance MEDICARE MEDICAID Care Teams Criminal Justice Faculty Relationship Specialty Start Date End Date Moshe Zambrano MD 331 [facility] 100 [place] [address] PCP - General INTERNAL MEDICINE 01/09/24 Deysi Reno Physician CARDIOLOGY 02/06/23 Dvaid Reno Physician NEPHROLOGY 02/06/23
[2024-10-24] MEDS: HYDROcodone/acetaminophen (*CRX) 5-325 MG TABLET 1 TAB PO (04:20)
[2024-10-24 04:30] LABS: Add Urine Microscopic? YES; Appearance Urine Clear (Clear); Budding Yeast Urine Present /hpf; Glucose Urine UA 3+ mg/dL (Negative); Leukocyte Esterase Ur Trace LEU/UL (Negative); Need Manual Microscopic Reviewed; Nitrate Urine Negative (Negative); Non Pathogenic Casts 0-2; Specific Grav Ur 1.009 (1.001-1.035)
--- NOTE | 2024-10-24 05:07 | ECG_ITS ---
Test Date: 2024-10-24 05:14:05 Measurements Intervals Palmer Rate: 87 P: 49 WY: 143 QRS: 42 QRSD: 88 T: 132 QT: 407 QTc: 490 Interpretive Statements SINUS RHYTHM WITH OCCASIONAL SUPRAVENTRICULAR PREMATURE COMPLEXES ST DEVIATION AND MODERATE T-WAVE ABNORMALITY, CONSIDER ANTEROLATERAL ISCHEMIA [-0.1+ mV T-WAVE IN V3-V6] No previous ECG available for comparison Electronically Signed On 10-24-2024 08:01:20 CDT by Dony Muhammad M.D.
[2024-10-24] MEDS: IPRATROPIUM 0.5 MG/ALBUTEROL SULFATE 2.5 MG AMPUL.NEB 3 ML INHALATION (05:32)
[2024-10-24] MEDS: ACETAMINOPHEN 325 MG TABLET 650 MG PO (06:18)
[2024-10-24] MEDS: LIDOCAINE 5% PATCH 1 PATCH TRANSDERM (06:22)
== END 2024-10-24 07:17 | disposition home or self-care (01) ==
PROVIDERS: Emergency Provider Student in an Organized Health Care Education/Training Program; PCP Internal Medicine
DX: S19.9XXA Unspecified injury of neck, initial encounter (principal); S79.912A Unspecified injury of left hip, initial encounter; S79.911A Unspecified injury of right hip, initial encounter; S39.92XA Unspecified injury of lower back, initial encounter; I31.39 Other pericardial effusion (noninflammatory); E11.9 Type 2 diabetes mellitus without complications; M48.56XA Collapsed vertebra, not elsewhere classified, lumbar region, initial encounter for fracture; I48.0 Paroxysmal atrial fibrillation; I10 Essential (primary) hypertension; J44.9 Chronic obstructive pulmonary disease, unspecified; I25.10 Atherosclerotic heart disease of native coronary artery without angina pectoris; E03.9 Hypothyroidism, unspecified; E78.5 Hyperlipidemia, unspecified; G47.33 Obstructive sleep apnea (adult) (pediatric); K74.60 Unspecified cirrhosis of liver; K21.9 Gastro-esophageal reflux disease without esophagitis; M19.90 Unspecified osteoarthritis, unspecified site; M81.0 Age-related osteoporosis without current pathological fracture; R32 Unspecified urinary incontinence; Z96.641 Presence of right artificial hip joint; Z95.810 Presence of automatic (implantable) cardiac defibrillator; Z87.891 Personal history of nicotine dependence; Z79.01 Long term (current) use of anticoagulants; Z79.899 Other long term (current) drug therapy; Z79.85 Long-term (current) use of injectable non-insulin antidiabetic drugs; Z79.620 Long term (current) use of immunosuppressive biologic; K64.4 Residual hemorrhoidal skin tags; I49.1 Atrial premature depolarization; R94.31 Abnormal electrocardiogram [ECG] [EKG]; J32.3 Chronic sphenoidal sinusitis; J84.9 Interstitial pulmonary disease, unspecified; W19.XXXA Unspecified fall, initial encounter
CPT/HCPCS: 70450; 71250; 72125; 74176; 81001; 93005; 94640; 99284; A9270